=== PATIENT | male | born 1955 | race African-American/Black ===

== ENCOUNTER 2017-07-26 15:27 | Inpatient (IN) | payer OTHER ==
[2017-07-26] MEDS ORDERED: Lorazepam 2 MG/ML VIAL ONE (15:43)
--- NOTE | 2017-07-26 16:08 | CT ---
CT OF HEAD NONCONTRAST 07/26/17 COMPARISON: 03/14/16 brain MRI. INDICATION: Altered mental status, stroke protocol. History of left sided weakness. FINDINGS: There is diffuse multifocal encephalomalacia with associated volume loss which involves the left MCA distribution, bilateral TREAD BOOKER distributions as well as posterior right MCA distribution. There is a chr onic appearing cavitary lacunar infarction left basal ganglia. Ex vacuo dilatation present within the left lateral ventricle. No hemorrhage, mass effect or midline shift. Decreased pneumatization left mastoid air cells. IMPRESSION: Diffuse multifocal bilateral cerebral hemisphere encephalomalacia with associated parenchymal volume loss. There is also a cavitary left basal ganglia lacunar infarct. No hemorrhage or mass effect. Findings called to ER physician, Trinidad Lucas, at the time of interpretation, 1540 hours, 07/26/17. Code CR POS: [facility]
[2017-07-26 16:24] LABS: #Eosinphils 0.1 thou/uL (0.0-0.7); #Lymphocytes 2.6 thou/uL (1.20-3.40); #Monocytes 0.5 thou/uL (0.11-0.59); #Neutrophils 5.9 thou/uL (1.40-6.50); %Basophils 0.5 % (0.0-1.0); %Eosinophils 0.8 % (0.0-10.0); %Lymphocytes 28.5 % (21.0-51.0); %Monocytes 5.5 % (0.0-10.0); %Neutrophils 64.7 % (42.0-75.0); Hemoglobin 15.8 g/dL (14.0-18.0); Mean Corpuscular HGB CONC 33.5 g/dL (32.0-36.0); Mean Corpuscular Hemoglobin 29.2 pg (27.0-31.0); Mean Corpuscular Volume 87.3 fl (80.0-94.0); Mean Platelet Volume 7.3 fL (7.4-10.4); Platelet Count 310 thou/uL (130-400); RBC Distribution Width 12.7 % (11.5-14.5); Red Blood Cell (RBC) Count 5.41 mill/uL (4.70-6.10); White Blood Cell (WBC) Count 9.2 thou/uL (4.8-10.8)
[2017-07-26 16:32] LABS: INR-International Normal Ratio 1.1; Prothrombin Time 14.5 SEC (12.0-14.7)
[2017-07-26 16:33] LABS: PTT 32.2 SEC (22.9-36.1)
[2017-07-26 16:42] LABS: Bilirubin Negative (Negative); Blood, Urine Trace (Negative); Clarity CLOUDY (Clear); Glucose, Urine (Dipstick) Negative (Negative); Leukocyte Negative (Negative); Nitrite Negative (Negative); Protein, Urine (Dipstick) Trace mg/dL (Neg-Trace); Specific Gravity, Urine 1.018 (1.002-1.036)
[2017-07-26 16:44] LABS: Bacteria/HPF None Seen HPF (None Seen); Pathc Cast-AUWi Flag 2.03 (0-2.49); WBC/HPF 0-3 HPF (0-3)
[2017-07-26 16:45] LABS: ALT (SGPT) 28 U/L (8-55); AST (SGOT) 24 U/L (5-34); Albumin 4.4 g/dL (3.4-4.8); Alkaline Phosphatase 129 U/L (40-150); Anion Gap 15 mmol/L (10-20); BUN (Urea Nitrogen) 16 mg/dL (8.4-25.7); Calc. Creatinine Clearance 0 mL/min (70-130); Calcium 9.8 mg/dL (7.8-10.44); Carbon Dioxide 23 mmol/L (23-31); Chloride 106 mmol/L (98-107); Estimated GFR-MDRD 58; Globulin 3.6 g/dL (2.4-3.5); Glucose 161 mg/dL (80-115); Potassium 3.8 mmol/L (3.5-5.1); Sodium 140 mmol/L (136-145)
[2017-07-26 16:48] LABS: CKMB 2.3 ng/mL (0-6.6)
[2017-07-26 16:51] LABS: Hyaline Casts/LPF 0-3 HYALINE CAST LPF (0-3 Hyaline); Renal Epithelial 0-3 HPF (0-3); Transitional Epithelial 0-3 HPF (0-3)
--- NOTE | 2017-07-26 17:11 | RAD ---
PORTABLE CHEST ONE VIEW 07/26/17 at 4:38 p.m. HISTORY: Altered mental status, chest pain. FINDINGS/IMPRESSION: The heart size is borderline. There is a mild infiltrate in the right lower lung. The aorta is tortuo us. No pneumothoraces or large effusions are seen. POS: [facility]
--- NOTE | 2017-07-26 18:56 | HP ---
DATE OF ADMISSION: 07/26/2017 CHIEF COMPLAINT: Found unconscious, found unresponsive at home at 6:00 a.m. HISTORY OF PRESENT ILLNESS: This is a 62-year-old -[place] male with a known history of a pr evious CVA in the past, but has been fully functional according to his cousin who lives with him in t he same house. The patient was found unresponsive at home when his cousin saw him in the room on the floor. This happened at 6:00 a.m. and the patient was brought to the ER more than 3 hours after the initial event. When patient in the ER, he was completely unresponsive. Usually, he is alert and or iented x2, but is completely disoriented and is unable to give any history and not able to communicat e at all. The patient had a complete weakness of his left upper and lower extremities and had a comp lete aphasia. Dr. Medina from Neurosurgery was consulted by the ER physician who did go through the CAT scan and said there was no evidence of any acute stroke or any need for giving a tPA at this time . Unable to get any history at this time and no family member is available at the bedside. Most of the history was obtained from the nurse in the room and also from the previous records. PAST MEDICAL HISTORY: Significant for; 1. CVA. 2. Hypertension. PAST SURGICAL HISTORY: None. SOCIAL HISTORY: The patient lives at home with his cousin. He denies any alcohol. No history of al cohol, no history of illicit drug use. FAMILY HISTORY: Has been reviewed from the previous chart. No known family history of coronary toño ry disease or premature was noted. REVIEW OF SYSTEMS: Cannot be obtained as the patient is completely nonverbal and no family member is available at the bedside. ALLERGIES: No known drug allergies. HOME MEDICATIONS: 1. Amlodipine 10 mg p.o. daily. 2. Aspirin 1 capsule p.o. b.i.d. 3. Atorvastatin 20 mg p.o. daily. 4. Lisinopril 10 mg p.o. daily. PHYSICAL EXAMINATION: VITAL SIGNS: Blood pressure is 110/88, respiratory rate is 18 and saturation is 98%. GENERAL: The patient is moderately built and moderately nourished. He does not appear to be in acut e distress at this time, but is completely nonverbal. HEENT: Atraumatic and normocephalic. PERRLA. Extraocular movements intact. Oral mucosa is pink an d moist. NECK: No thyromegaly, no JVD was noted. CARDIOVASCULAR: S1 and S2 normal. No murmurs, rubs or gallops. LUNGS: Bilateral air entry was equal. No wheezing, no crackles. ABDOMEN: Soft and nontender. No guarding, no rebound tenderness. Bowel sounds normal. MUSCULOSKELETAL: No calf tenderness. No pedal edema. EXTREMITIES: No joint tenderness. MUSCULOSKELETAL: No joint swelling. SKIN: No cyanosis, no erythema, no rash, no pallor. CENTRAL NERVOUS SYSTEM: Could not be done, but has a severe sensory loss on the left upper and lower extremities associated with motor. No evidence of any Babinski reflex was noted on the left lower e xtremity, on the right side is upgoing and brisk reflexes. The patient is not able to follow any oth er commands to do further exam. LYMPHATICS: No evidence of any generalized lymph nodes were noted. LABORATORY DATA: WBC 9.2, hemoglobin is 15.8, hematocrit is 47.3 and platelets are 310. Sodium is 1 40, potassium 3.8, chloride 106, bicarbonate is 23, BUN 16, creatinine is 1.49 and lactic acid is 3.2 . UA was negative for any urinary tract infection. IMAGING DATA: CT of the brain was done today, which showed a diffuse multifocal bilateral cerebral h emisphere encephalomalacia with associated parenchymal loss was noted and there is also a cavitary le ft basal ganglia lacunar infarct was noted, left basal ganglia and lacunar infarct was noted. No hem orrhage or mass effect. ASSESSMENT AND PLAN: 1. Acute left cerebrovascular accident. 2. Acute kidney injury. 3. Severe dehydration. 4. History of hypertension. 5. History of cerebrovascular accident. 1. The plan is to closely monitor this patient and consult Neurology. We will do an MRI of the brai n to look for any evidence of an acute infarction. CT did not show any acute infarction, but it did show evidence of previous strokes and also severe encephalomalacia. We will start the patient on asp irin rectally and we will keep him n.p.o. and we will do a swallow evaluation. 2. The patient has evidence of severe dehydration with elevated lactic acid and elevated creatinine. At this time, we will start the patient on IV hydration with normal saline at 100 mL hour. 3. Mild acute kidney injury was noted with elevated creatinine. The baseline is not known at this t max, so we will continue with IV hydration and avoid nephrotoxic medication. 4. Hypertension is well controlled. We will closely monitor the patient and allow permissive hypert ension because of the stroke. 5. We will do a PT and OT evaluation and [facility] I spent [facility] minutes with this patient.
[2017-07-26] MEDS ORDERED: Ondansetron HCl/PF 4 MG/2 ML Vial IVP PRN (19:16)
[2017-07-26] MEDS: Dextrose 5 % And 0.9 % NaCl 1,000 ML IV SCH (20:13)
[2017-07-26] MEDS: Atorvastatin Calcium 40 MG TAB PO SCH (20:14)
[2017-07-26] MEDS: Famotidine/PF 20 mg/2ml Vial SLOW IVP SCH (20:14)
[2017-07-26 20:53] LABS: Lactic Acid 3.1 mmol/L (0.5-2.2)
[2017-07-27] MEDS: Dextrose 5 % And 0.9 % NaCl 1,000 ML IV SCH (03:38)
[2017-07-27 04:38] LABS: Amphetamine Not Detected (NotDetected); Barbiturates Screen Not Detected (NotDetected); Benzodiazepine Screen Not Detected (NotDetected); Cocaine Metabolite Screen Not Detected (NotDetected); Medtox Control Line Valid? VALID (VALID); Medtox Reader # READER 1; Methadone Not Detected (NotDetected); Methamphetamine Not Detected (NotDetected); Opiate Screen Not Detected (NotDetected); Oxycodone Screen Not Detected (NotDetected); Phencyclidine (PCP) Not Detected (NotDetected); THC/Cannabinoid Screen Not Detected (NotDetected); Tricyclic Screen Not Detected (NotDetected)
[2017-07-27 04:58] LABS: #Lymphocytes 2.8 thou/uL (1.20-3.40); #Monocytes 1.1 thou/uL (0.11-0.59); #Neutrophils 6.7 thou/uL (1.40-6.50); %Basophils 0.4 % (0.0-1.0); %Eosinophils 0.4 % (0.0-10.0); %Lymphocytes 25.9 % (21.0-51.0); %Monocytes 10.2 % (0.0-10.0); %Neutrophils 63.2 % (42.0-75.0); Hemoglobin 14.4 g/dL (14.0-18.0); Mean Corpuscular HGB CONC 33.1 g/dL (32.0-36.0); Mean Corpuscular Hemoglobin 28.7 pg (27.0-31.0); Mean Corpuscular Volume 86.8 fl (80.0-94.0); Platelet Count 321 thou/uL (130-400); RBC Distribution Width 12.4 % (11.5-14.5); Red Blood Cell (RBC) Count 5.02 mill/uL (4.70-6.10); White Blood Cell (WBC) Count 10.6 thou/uL (4.8-10.8)
[2017-07-27 05:08] LABS: Anion Gap 12 mmol/L (10-20); BUN (Urea Nitrogen) 11 mg/dL (8.4-25.7); Calc. Creatinine Clearance 63 mL/min (70-130); Calcium 9.4 mg/dL (7.8-10.44); Carbon Dioxide 23 mmol/L (23-31); Cardiac Risk 4.1 (Less than 4.5); Chloride 108 mmol/L (98-107); Cholesterol 152 mg/dl (< 200 Desired); Estimated GFR-MDRD 74; Glucose 164 mg/dL (80-115); HDL Cholesterol 37 mg/dL (>60 Neg Risk); LDL Cholesterol, Calculated 105 mg/dL; Potassium 3.6 mmol/L (3.5-5.1); Sodium 139 mmol/L (136-145); Triglycerides 52 mg/dL (Less than 150)
[2017-07-27] MEDS: Aspirin 81 mg Enteric Coated Tablet PO SCH (09:22)
[2017-07-27] MEDS: Enoxaparin Sodium 40 MG/0.4 ML SYRINGE SC SCH (09:22)
--- NOTE | 2017-07-27 10:30 | CON ---
DATE OF CONSULTATION: 07/27/2017 IMPRESSION: 1. Probable new stroke. 2. Previous history of stroke with visual field deficit on the right and some cognitive impairment. 3. Hyperlipidemia. 4. Hypertension. PLAN: 1. MRI of the brain. 2. Add Plavix 75 mg per day. 3. Probable need for fci placement. 4. Swallow evaluation. HISTORY OF PRESENT ILLNESS: Mr. Hudson is a 62-year-old man who is living at home with his . e reports that he generally can get around the house independently, did not see very well to the [facility] side and occasionally would bump into things. He has been at this time watching TV and could feed himself. He reportedly denied any significant memory difficulties. He became less responsive and wa s brought into the emergency room yesterday. There is no history of seizures. He has not had any ab normal movements. He has not had any fever or other signs of illness prior to admission. PAST MEDICAL HISTORY: Stroke, hypertension, hyperlipidemia. PAST SURGICAL HISTORY: Unremarkable. SOCIAL HISTORY: No alcohol or drug use. FAMILY HISTORY: Noncontributory. REVIEW OF SYSTEMS: Not obtainable. ALLERGIES: None. MEDICATIONS: Amlodipine, aspirin, atorvastatin, and lisinopril. PHYSICAL EXAMINATION: GENERAL: A thin 62-year-old gentleman sitting in bed with his eyes closed. VITAL SIGNS: Blood pressure 110/88, pulse 76, respirations 18, saturations 98%. HEENT: Pupils are equal and conjunctivae were clear. Cranium normocephalic and atraumatic. NECK: No lymphadenopathy noted. EXTREMITIES: No cyanosis or edema. NEUROLOGIC: He was nonverbal. He would not follow any commands. He appeared to have a symmetric fa cial appearance. Motor exam was difficult to test, but overall the tone was maybe a bit depressed on the left as compared to the right. Gait was not testable. No abnormal movements were seen. Planta r responses were equivocal bilaterally. LABORATORY STUDIES: Reviewed and appear unremarkable. CT scan of the brain shows areas of encephalomalacia involving both occipital and temporal regions bi laterally, some lacunar infarctions in the basal ganglia region as well. SUMMARY: This is a middle-aged man with a history of prior strokes and hypertension. He appears to have had an acute neurologic change as of have a new stroke. His is willing to consider PEG tub e placement if needed. He may require fci placement. Depending on his level of care, not m uch else that can be done at this point. His prior workup in 2016 did not reveal cardioembolic sourc e or evidence of carotid disease.
--- NOTE | 2017-07-27 13:05 | ULT ---
BILATERAL CAROTID DUPLEX ULTRASOUND: DATE: 07/27/17 HISTORY: Left-sided weakness. TECHNIQUE: Duff scale ultrasound with color flow and spectral Doppler imaging of the extracranial carotid artery systems performed bilaterally. FINDINGS: There is plaque formation on either side. The peak systolic velocity in the right ICA measures 34 cm/second with an end-diastolic velocity of 1 3 cm/second and a systolic ratio of 0.51. The peak systolic velocity in the left ICA measures 46 cm/second with an end-diastolic velocity of 19 cm/second and a systolic ratio of 0.43. Flow in both vertebral arteries remains antegrade. IMPRESSION: No evidence of hemodynamically significant stenosis. POS: [facility]
--- NOTE | 2017-07-27 14:05 | PDOC.PN ---
- Subjective Encounter Start Date: 07/27/17 Encounter Start Time: 13:00 Darling is dax today with his Cousin at bedside, pt remains Non Verbal from the stroke. Waiitng on MRI scan. pt has clearly noted Left sided deficitis persistant and lasting > 24 hrs, pt does have a stroke, he will need more than 2 midnights stay. - Objective Resuscitation Status: Resuscitation Status FULL:Full Resuscitation MAR Reviewed: Yes Vital Signs & Weight: Vital Signs (12 hours) Temp Pulse Resp BP BP Pulse Ox 07/27/17 11:08 98.3 F 80 18 137/101 H 94 L 07/27/17 08:00 97.9 F 110 H 16 07/27/17 07:05 97.6 F 97 18 173/107 H 97 07/27/17 03:35 97.9 F 110 H 16 169/105 H 97 I&O: 07/26/17 07/27/17 07/28/17 06:59 06:59 06:59 Intake Total 3812 Balance 3812 Result Diagrams: 07/27/17 04:38 07/27/17 04:38 Radiology Reviewed by me: Yes EKG Reviewed by me: Yes Phys Exam - Physical Examination HEENT: moist MMs, sclera anicteric Neck: no nodes, no JVD Respiratory: no wheezing, no rales Cardiovascular: RRR, no significant murmur Gastrointestinal: soft, non-tender Musculoskeletal: no edema, pulses present PT has Persistant Left upper &Lower Extremity weakness and sensory loss Aphasia, Dx/Plan (1) CVA (cerebral vascular accident) Code(s): I63.9 - CEREBRAL INFARCTION, UNSPECIFIED Status: Acute Comment: Pt has persuistant Deficits , with left upper and lower extremity, motor and sensory deficits, Pt has severe Aphasia and Not following commands, pending Echo , preliminary report shows severe Aortic Stenosis. MRI pending. (2) HTN (hypertension) Code(s): I10 - ESSENTIAL (PRIMARY) HYPERTENSION Status: Chronic Comment: Darling will be continued on PRN meds. (3) Dysphagia as late effect of cerebrovascular accident (CVA) Code(s): I69.391 - DYSPHAGIA FOLLOWING CEREBRAL INFARCTION Status: Acute Comment: Diuscussed with Causin who is MPOA, pt will need Tube feeding and possible PEg before dischagre if his Deficits do not return. - Plan cont current plan of care, plan discussed w/ family, PT/OT, social media job titles, speech therapy, respiratory therapy, incentive spirometry, DVT proph w/lovenox * . - Discharge Day Encounter end time: 13:35 Review of Systems - Review of Systems Other: Unable to get ROS due to pts mental status from severe stroke. - Medications/Allergies Allergies/Adverse Reactions: Allergies Allergy/AdvReac Type Severity Reaction Status Date / Time No Known Drug Allergies Allergy Verified 03/13/16 20:16 Medications: Current Medications Aspirin (Ecotrin) 81 mg PO DAILY [facility] Last Admin: 07/27/17 09:22 Dose: 81 mg Atorvastatin Calcium (Lipitor) 40 mg PO HS [facility] Last Admin: 07/26/17 20:14 Dose: Not Given Enoxaparin Sodium (Lovenox) 40 mg SC 0900 [facility] Last Admin: 07/27/17 09:22 Dose: 40 mg Famotidine (Pepcid) 20 mg SLOW IVP 2100 [facility] Last Admin: 07/26/17 20:14 Dose: 20 mg Influenza Virus Vaccine (Fluzone Quad [id number] Syringe) 0.5 ml IM .ONCE ONE Stop: 07/28/17 09:01 Ondansetron HCl (Zofran) 4 mg IVP Q6H PRN PRN Reason: Nausea/Vomiting Pneumococcal Polyvalent Vaccine (Pneumovax 23) 0.5 ml IM .ONCE ONE Stop: 07/28/17 09:01
[2017-07-27] MEDS ORDERED: Sodium Bicarbonate Tab 325 MG TAB PER TUBE PRN (17:54)
[2017-07-27] MEDS ORDERED: Pancrelipase DR 12000 1 CAP FS PRN (17:54)
[2017-07-27] MEDS: Atorvastatin Calcium 40 MG TAB PO SCH (21:06)
[2017-07-27] MEDS: Famotidine/PF 20 mg/2ml Vial SLOW IVP SCH (21:09)
[2017-07-28] MEDS ORDERED: FLU VACC QS2017-18 36 mo. & older 0.5 ML SYRINGE IM ONE (09:00)
[2017-07-28] MEDS: Aspirin 81 mg Enteric Coated Tablet PO SCH (10:01)
[2017-07-28] MEDS: Enoxaparin Sodium 40 MG/0.4 ML SYRINGE SC SCH (10:01)
--- NOTE | 2017-07-28 12:28 | PDOC.PN ---
- Subjective Encounter Start Date: 07/28/17 Encounter Start Time: 11:00 Patient is seen today, remains Non verbal, His Cousin / MPOA is at bedside, discucsed about SNF/ Rehab, and waiting on MRI today also explained pt will need PEG tube for care home deficits and dyssphagia, will need tube feeding started. She is open for it. - Objective MAR Reviewed: Yes Vital Signs & Weight: Vital Signs (12 hours) Temp Pulse Pulse Pulse Pulse Resp BP 07/28/17 11:08 100 F H 90 20 07/28/17 09:00 87 113 H 89 146/103 H 07/28/17 08:00 97.9 F 88 16 07/28/17 07:58 97.9 F 88 16 07/28/17 04:00 99.3 F 93 16 BP BP BP Pulse Ox 07/28/17 11:08 143/94 H 93 L 07/28/17 09:00 146/107 H 149/99 H 07/28/17 08:00 97 07/28/17 07:58 135/93 H 97 07/28/17 04:00 164/100 H 93 L Weight Admit Weight 152 lb 8 oz Weight 152 lb 8 oz I&O: 07/27/17 07/28/17 07/29/17 06:59 06:59 06:59 Intake Total 20 Balance 20 Result Diagrams: 07/27/17 04:38 07/27/17 04:38 Radiology Reviewed by me: Yes Phys Exam - Physical Examination HEENT: PERRLA, moist MMs Neck: no nodes, no JVD Respiratory: no wheezing, no rales Cardiovascular: RRR, no significant murmur Gastrointestinal: soft Musculoskeletal: no edema, pulses present Non verbal, simialr Dificits from two days. Skin: no rash, normal turgor Dx/Plan (1) CVA (cerebral vascular accident) Code(s): I63.9 - CEREBRAL INFARCTION, UNSPECIFIED Status: Acute Comment: Pt has persuistant Deficits , with left upper and lower extremity, motor and sensory deficits, Pt has severe Aphasia and Not following commands, pending Echo , preliminary report shows severe Aortic Stenosis. MRI pending, likely today. (2) HTN (hypertension) Code(s): I10 - ESSENTIAL (PRIMARY) HYPERTENSION Status: Chronic Comment: Paitent will be continued on PRN meds. (3) Dysphagia as late effect of cerebrovascular accident (CVA) Code(s): I69.391 - DYSPHAGIA FOLLOWING CEREBRAL INFARCTION Status: Acute Comment: Diuscussed with Causin who is MPOA, pt will need Tube feeding and possible PEg before dischagre if his Deficits do not return. Consulted GI for PEG planning. - Plan cont current plan of care, plan discussed w/ family, PT/OT, community mental health social worker, speech therapy, incentive spirometry, DVT proph w/lovenox * . - Discharge Day Encounter end time: 11:35 Review of Systems - Review of Systems Other: Unable to get ROS, pt is Non verbal. - Medications/Allergies Allergies/Adverse Reactions: Allergies Allergy/AdvReac Type Severity Reaction Status Date / Time No Known Drug Allergies Allergy Verified 03/13/16 20:16 Medications: Current Medications Lipase/Protease/Amylase ([place] 64637) 1 cap FS .PER PROTOCOL PRN PRN Reason: TUBE OCCLUSION PROTOCOL Aspirin (Ecotrin) 81 mg PO DAILY [facility] Last Admin: 07/28/17 10:01 Dose: Not Given Atorvastatin Calcium (Lipitor) 40 mg PO HS [facility] Last Admin: 07/27/17 21:06 Dose: Not Given Enoxaparin Sodium (Lovenox) 40 mg SC 0900 [facility] Last Admin: 07/28/17 10:01 Dose: 40 mg Famotidine (Pepcid) 20 mg SLOW IVP 2100 [facility] Last Admin: 07/27/17 21:09 Dose: 20 mg Ondansetron HCl (Zofran) 4 mg IVP Q6H PRN PRN Reason: Nausea/Vomiting Sodium Bicarbonate (Bicarbonate, Sodium) 650 mg PER TUBE .PER PROTOCOL PRN PRN Reason: ENTERAL TUBE OCCLUSION
--- NOTE | 2017-07-28 15:20 | MRI ---
MRI BRAIN WITHOUT CONTRAST: Date: 07/28/17 HISTORY: Stroke. Patient unable to speak. FINDINGS: Correlation is made with CT scan of 07/26/17. There is restricted diffusion in the right MCA territory with low signal on ADC map consistent with a n acute infarction. Changes of cortical atrophy, old lacunar infarction in the left basal ganglia, an d old infarctions in the left MCA and bilateral AGRICULTURAL PILOT distribution are noted. There is ex vacuo dilatat ion of the left lateral ventricle. No hemorrhage, midline shift, or abnormal extra-axial fluid collec tions are seen. IMPRESSION: Acute right MCA infarction. POS: [facility]
[2017-07-28] MEDS: Dextrose 5 % And 0.9 % NaCl 1,000 ML IV SCH (18:39)
[2017-07-28] MEDS: Famotidine/PF 20 mg/2ml Vial SLOW IVP SCH (20:16)
[2017-07-28] MEDS: Atorvastatin Calcium 40 MG TAB PO SCH (20:16)
--- NOTE | 2017-07-28 21:58 | CON ---
DATE OF CONSULTATION: 07/28/2017 REASON FOR CONSULTATION: Dysphagia. CONSULTING PHYSICIAN: Gustavo Montague MD HISTORY OF PRESENT ILLNESS: The patient is a 62-year-old male with past medical history of hypertens ion and prior cardiovascular accident, presenting with altered mental status and dysphagia. The antione ent is currently unable to answer any interview questions and no family was available for interview, so the majority of the information obtained was during this consultation is through chart review. Pe r chart review, the patient does have a history of cardiovascular accident and had what appeared to b e some right-sided deficits and memory loss while at home it is baseline; however, it sounds as thoug h over the last 24-48 hours, he became less responsive and was brought to the emergency room for eval uation. Upon evaluation in the ER, there was some concern about a new acute stroke, but his chart wa s reviewed by Dr. Yusuf from Neurosurgery, who felt that there was no acute stroke or need for TPA. He was subsequently admitted and during this hospitalization, he underwent a speech pathology swallow study which he was unable to complete with increased risk of aspiration. REVIEW OF SYSTEMS: Unable to obtain due to patient's aphasic status. PAST MEDICAL HISTORY: As per HPI. PAST SURGICAL HISTORY: None. SOCIAL HISTORY: No tobacco, alcohol, or illicit drug use. FAMILY HISTORY: No known family history of GI malignancy. OUTPATIENT MEDICATIONS: Reviewed. ALLERGIES: No known drug allergies. PHYSICAL EXAMINATION: VITAL SIGNS: Temperature 97, pulse 89, blood pressure 162/104, respiratory rate 16, satting 94% on r oom air. GENERAL: The patient is lying in bed, in no acute distress, unable to determine orientation, but is alert to verbal and noxious stimuli. NECK: Supple. No JVD noted. CARDIOVASCULAR: Regular rate and rhythm with no discernible murmurs, gallops or rubs. RESPIRATORY: Clear to auscultation bilaterally with no discernible wheezes or rales. ABDOMEN: Normoactive bowel sounds, soft, nontender, nondistended. EXTREMITIES: No cyanosis, clubbing or edema. LABORATORY DATA: CBC with a white blood cell count of 10.6, hemoglobin 14.4, hematocrit 43.6, platel ets 321. Chemistry with a sodium of 139, potassium 3.6, chloride 108, CO2 23, BUN 11, creatinine 1.2 1, glucose 164, AST 24, ALT 28, alkaline phosphatase 129, total bilirubin 1.0. IMAGING DATA: CT of brain obtained on 07/26/2017 showed diffuse multifocal bilateral cerebral hemisp here encephalomalacia associated with parenchymal volume loss. There was also a cavitary left basal ganglia lacunar infarct, but no hemorrhage or mass effect. Chest x-ray obtained on 07/26/2017, do no t show any acute cardiopulmonary abnormalities except for a mild infiltrate in the right lower lung. ASSESSMENT AND PLAN: The patient is a 62-year-old male with a past medical history of hypertension a nd cardiovascular accident, presenting with altered mental status and dysphagia. Dysphagia. The patient is presenting with a history of cardiovascular accident with right-sided defi cits, now coming in with acute change in his mental status, now being aphasic and left-sided weakness as well, concerning for repeat cardiovascular accident. CT brain did not show any acute abnormaliti es with the brain MRI pending at this time. At this point, Speech Pathology examination showed that the patient is unsafe for oral intake due to significant dysphagia and pooling of foodstuffs within t he mouth concerning for possible aspiration. RECOMMENDATIONS: 1. We will plan for EGD with PEG tube placement tomorrow. 2. We would refrain from any anticoagulation tonight or tomorrow morning in anticipation of the proc edure. 3. Please make the patient n.p.o. at midnight.
[2017-07-29] MEDS: Dextrose 5 % And 0.9 % NaCl 1,000 ML IV SCH ×2 (04:09→14:13)
[2017-07-29] MEDS: Aspirin 81 mg Enteric Coated Tablet PO SCH (10:06)
[2017-07-29] MEDS: Enoxaparin Sodium 40 MG/0.4 ML SYRINGE SC SCH (10:06)
--- NOTE | 2017-07-29 12:48 | PDOC.PN ---
- Subjective Encounter Start Date: 07/29/17 Encounter Start Time: 08:00 Patient is seen today,drowsy and lethergic non verbal. No family memeber at bedside. - Objective MAR Reviewed: Yes Vital Signs & Weight: Vital Signs (12 hours) Temp Pulse Pulse Pulse Resp BP BP 07/29/17 11:16 99.1 F 72 16 07/29/17 09:13 73 72 143/98 H 144/95 H 07/29/17 08:28 98.8 F 76 16 07/29/17 07:40 99.2 F 78 16 07/29/17 03:29 99.2 F 78 16 BP Pulse Ox 07/29/17 11:16 146/111 H 98 07/29/17 09:13 07/29/17 08:28 133/93 H 94 L 07/29/17 07:40 94 L 07/29/17 03:29 162/104 H 92 L Weight Admit Weight 152 lb 8 oz Weight 144 lb 11.2 oz I&O: 07/28/17 07/29/17 07/30/17 06:59 06:59 06:59 Intake Total 20 1265 Balance 20 1265 Result Diagrams: 07/27/17 04:38 07/27/17 04:38 Radiology Reviewed by me: Yes (MRI reviewed.) Phys Exam - Physical Examination HEENT: PERRLA, moist MMs Neck: no nodes, no JVD Respiratory: no wheezing, no rales Cardiovascular: RRR, no significant murmur Gastrointestinal: soft, non-tender Musculoskeletal: no edema, pulses present persistant left Sided Deficitis Dx/Plan (1) CVA (cerebral vascular accident) Code(s): I63.9 - CEREBRAL INFARCTION, UNSPECIFIED Status: Acute Comment: Pt has persuistant Deficits , with left upper and lower extremity, motor and sensory deficits, Pt has severe Aphasia and Not following commands, pending Echo , preliminary report shows severe Aortic Stenosis. MRI confirmed Right MCA (2) HTN (hypertension) Code(s): I10 - ESSENTIAL (PRIMARY) HYPERTENSION Status: Chronic Comment: Paitent will be continued on PRN meds. (3) Dysphagia as late effect of cerebrovascular accident (CVA) Code(s): I69.391 - DYSPHAGIA FOLLOWING CEREBRAL INFARCTION Status: Acute Comment: Diuscussed with Causin who is MPOA, pt will need Tube feeding and possible PEg before dischagre if his Deficits do not return. PEG tube tomorrow, will hold and Asporin and lovenox. - Plan cont current plan of care, plan discussed w/ family, talavera catheter, PT/OT, social insurance adviser, speech therapy, incentive spirometry, DVT proph w/SCDs * . - Discharge Day Encounter end time: 08:35 Review of Systems - Review of Systems Other: Unable to get ROS due to neurologic deficits and pts non verbal state. - Medications/Allergies Allergies/Adverse Reactions: Allergies Allergy/AdvReac Type Severity Reaction Status Date / Time No Known Drug Allergies Allergy Verified 03/13/16 20:16 Medications: Current Medications Lipase/Protease/Amylase ([place]illard 63072) 1 cap FS .PER PROTOCOL PRN PRN Reason: TUBE OCCLUSION PROTOCOL Atorvastatin Calcium (Lipitor) 40 mg PO HS [facility] Last Admin: 07/28/17 20:16 Dose: Not Given Famotidine (Pepcid) 20 mg SLOW IVP 2100 [facility] Last Admin: 07/28/17 20:16 Dose: 20 mg Dextrose/Sodium Chloride (D5 0.9% Ns) 1,000 mls @ 100 mls/hr IV .Q10H [facility] Last Admin: 07/29/17 04:09 Dose: 1,000 mls Ondansetron HCl (Zofran) 4 mg IVP Q6H PRN PRN Reason: Nausea/Vomiting Sodium Bicarbonate (Bicarbonate, Sodium) 650 mg PER TUBE .PER PROTOCOL PRN PRN Reason: ENTERAL TUBE OCCLUSION Sodium Chloride (Flush - Normal Saline) 10 ml IVF Q12HR [facility] Last Admin: 07/29/17 10:06 Dose: Not Given Sodium Chloride (Flush - Normal Saline) 10 ml IVF PRN PRN PRN Reason: Saline Flush
--- NOTE | 2017-07-29 19:27 | PRG ---
DATE OF SERVICE: 07/29/2017 REASON FOR CONSULTATION: Dysphagia. SUBJECTIVE: No acute events or problems overnight. The patient is still aphasic and unable to contr ibute any meaningful information to interviewing. Per nursing staff, the patient has been fairly apa thetic with his current care. OBJECTIVE: VITAL SIGNS: Temperature 98.0, pulse 74, blood pressure 135/92, respiratory rate 16, satting 94% on room air. GENERAL: The patient is lying in bed, in no acute distress, alert but cannot contribute to orientati on questions. CARDIOVASCULAR: Regular rate and rhythm, no discernible murmurs, gallops or rubs. RESPIRATORY: Clear to auscultation bilaterally with no wheezes or rales. ABDOMEN: Normoactive bowel sounds, soft, nontender, nondistended. EXTREMITIES: No cyanosis, clubbing or edema. LABORATORY DATA: No current laboratory data is available for review. IMAGING DATA: No current imaging is available for review. ASSESSMENT AND PLAN: The patient is a 62-year-old male with past medical history of hypertension and cardiovascular accident, presenting with altered mental status and dysphagia. Dysphagia: The patient has a history of cerebrovascular accident with right-sided deficit, who prese nted during this hospitalization with an acute change in his mental status and concern for recurrent stroke. CT brain did not show any abnormalities, but the brain MRI showed an acute right MCA infarct ion, which could result in the deficits were seen clinically at this time. Speech pathology examinat ion at the beginning of this hospitalization showed that the patient is unsafe for oral intake due to significant dysphagia and pooling of foodstuffs within the mouth concerning for increased risk of as piration. At this point, he would be a candidate for PEG tube placement. RECOMMENDATIONS: 1. We will plan for EGD with PEG tube placement tomorrow on 07/30/2017. The procedure was originall y planned for today, but we were unable to get a hold of family members for consent. 2. We would refrain from any anticoagulation tonight or tomorrow morning in anticipation for the pro cedure. 3. Continue n.p.o. status. We will continue to follow. Please call with any questions.
[2017-07-29] MEDS: Famotidine/PF 20 mg/2ml Vial SLOW IVP SCH ×2 (19:52→19:53)
[2017-07-29] MEDS: Atorvastatin Calcium 40 MG TAB PO SCH (19:53)
[2017-07-30] MEDS: Dextrose 5 % And 0.9 % NaCl 1,000 ML IV SCH ×4 (00:25→15:20)
--- NOTE | 2017-07-30 07:22 | PDOC.PN ---
- Subjective Encounter Start Date: 07/30/17 Encounter Start Time: 07:21 Subjective: nsg notes rev, antoine ovn, pts cousin at bedside. pt somnolent - Objective Vital Signs & Weight: Vital Signs (12 hours) Temp Pulse Resp BP Pulse Ox 07/30/17 03:39 98.6 F 68 18 141/89 H 96 07/30/17 00:05 98.5 F 78 18 136/84 95 07/29/17 20:30 98.6 F 71 18 134/97 H 95 Weight Admit Weight 152 lb 8 oz Weight 146 lb 3.2 oz I&O: 07/29/17 07/30/17 07/31/17 06:59 06:59 06:59 Intake Total 1265 3575 Output Total 1 Balance 1265 3574 Result Diagrams: 07/27/17 04:38 07/27/17 04:38 Phys Exam - Physical Examination Constitutional: NAD HEENT: PERRLA, sclera anicteric slightly dry mm Respiratory: no wheezing, no rales, no rhonchi, clear to auscultation bilateral limited ant exam Cardiovascular: RRR, no significant murmur, no rub Gastrointestinal: soft, non-tender, positive bowel sounds Musculoskeletal: no edema, pulses present Dx/Plan - Plan 62M hx prior CVA who p/w decreased mentation greater than 3hrs in duration. He was brought in by his cousin whom he lives with. * R sided MCA infarct w/ L sided deficits * apprec neuro c/s * PT/ OT/ ST * continue atorvastatin * ASA held for EGD + PEG today dysphagia from R sided MCA * apprec GI c/s * plan for EGD w/ PEG today HTN * imprv ctrl SBP 130s ovn ARF on admission * likely pre-renal etiology from concurrent dehydration on admission * resolved Diet: TF initiation as per GI activity: as evangelina dvt ppx: enoxaparin held at midnight for procedure Review of Systems - Medications/Allergies Allergies/Adverse Reactions: Allergies Allergy/AdvReac Type Severity Reaction Status Date / Time No Known Drug Allergies Allergy Verified 03/13/16 20:16 Medications: Current Medications Lipase/Protease/Amylase (Corky Dillard 68590) 1 cap FS .PER PROTOCOL PRN PRN Reason: TUBE OCCLUSION PROTOCOL Atorvastatin Calcium (Lipitor) 40 mg PO HS EVAN Last Admin: 07/29/17 19:53 Dose: Not Given Famotidine (Pepcid) 20 mg SLOW IVP 2100 EVAN Last Admin: 07/29/17 19:53 Dose: 20 mg Dextrose/Sodium Chloride (D5 0.9% Ns) 1,000 mls @ 100 mls/hr IV .Q10H EVAN Last Admin: 07/30/17 00:25 Dose: 1,000 mls Ondansetron HCl (Zofran) 4 mg IVP Q6H PRN PRN Reason: Nausea/Vomiting Sodium Bicarbonate (Bicarbonate, Sodium) 650 mg PER TUBE .PER PROTOCOL PRN PRN Reason: ENTERAL TUBE OCCLUSION Sodium Chloride (Flush - Normal Saline) 10 ml IVF Q12HR EVAN Last Admin: 07/29/17 19:53 Dose: 10 ml Sodium Chloride (Flush - Normal Saline) 10 ml IVF PRN PRN PRN Reason: Saline Flush
--- NOTE | 2017-07-30 09:41 | OP ---
DATE OF PROCEDURE: 07/30/2017 GI ENDOSCOPY NOTE SURGEON: Artis Washington M.D. EMS EDUCATOR SURGEON: None. PROCEDURE: Esophagogastroduodenoscopy with aborted percutaneous endoscopic gastrostomy placement. INDICATION: Oropharyngeal dysphagia following stroke. MEDICATIONS: See anesthesia record. FINDINGS: After discussion of the risks, benefits and alternatives of the procedure, informed consen t was obtained and witnessed. Pre-endoscopic cardiopulmonary examination was satisfactory. Timeout was performed before sedation was achieved. Sedation was achieved with anesthesia assistance in the endoscopy unit. DESCRIPTION OF PROCEDURE: The patient was placed in the supine position. A Pentax adult upper endos cope was placed into the oropharynx and passed through the cricopharyngeus under direct visualization . The esophageal mucosa appeared normal throughout. The endoscope was advanced into the stomach. F orward and retroflexed views of the entire gastric mucosa were obtained. There was some mild patchy erythema throughout the stomach. No erosions or ulcerations. No hiatal hernia visualized. The endo scope was passed through the pylorus and into the first and second portions of the duodenum which miesha eared normal. The endoscope was then withdrawn back into the stomach and we attempted to find a suit able site for PEG placement. Initially it was difficult to achieve transillumination with reposition ing of the endoscope transillumination and 1:1 pressure were achieved and it was felt that a suitable site had been located in the left upper quadrant. The site was prepped and draped in sterile fashio n and then anesthetized with subcutaneous lidocaine; however, at this point, we lost transilluminatio n and insertion of the small needle transcutaneously was performed, but the tip of the needle was not able to be visualized in the gastric lumen. Three attempts were made to introduce this needle trans cutaneously, but we were never able to visualize the tip. Accordingly, it was decided to abort the a ttempted PEG placement and not to proceed with the incision. The endoscope was completely withdrawn and the patient allowed to recover. The patient tolerated the procedure well. There were no immedia te post-procedure complications. IMPRESSION: 1. Normal esophagogastroduodenoscopy. 2. Aborted attempt at percutaneous endoscopic gastrostomy placement due to inability to find a suita ble site. RECOMMENDATIONS: Surgical consultation for PEG placement. Please call back at any time if questions or concerns.
--- NOTE | 2017-07-30 12:24 | PQF ---
DATE: 07-30-17 ATTN: DR. DAMIEN AL Please exercise your independent, professional judgment in responding to the clarification form. Clinical indicators are provided on the bottom of this form for your review Please check appropriate box(s): [ x ] Hemiplegia Specify: [ x ] Non dominant side [ ] Dominant side Status: [ ] Complete [ x ] Incomplete [ ] Functional Quadriplegia (specify underlying cause) [ ] Weakness (please specify anatomical area) Specify: [ ] Non dominant side [ ] Dominant side [ ] Other diagnosis [ ] Unable to determine In addition, please specify: Present on Admission (POA): [ ] Yes [ ] No [ ] Unable to determine CLINICAL INDICATORS - SIGNS / SYMPTOMS / LABS CMSW NOTE 07-30-17: INFORMED HER PT WILL NEED 24 HR SUPERVISION. PN 07-27-17: REMAINS NONVERBAL FROM STROKE, PT HAS CLEARLY NOTED L SIDED DEFICITS PERSISTENT AND LASTING >24 HRS, PT HAS PERSISTENT DEFICITS, WITH LEFT UPPER AND LOWER EXTREMITY, MOTOR AND SENSORY DEFICITS, PT HAS SEVERE APHASIA NURSING NOTE 07-30-17: PATIENT GIVEN BATH PT CONSULT: 07-29-17: DECREASED FUNCTIONAL MOBILITY, GAIT ABNORMALITY, HX OF CVA, APHASIA FROM PRIOR CVA, UNABLE TO WALK, UNABLE TO MEET DAILY PROGRESS, PT REMAINS COMPLETELY DEPENDENT ON assistance for all aspects of care. Pt would benefit from cont PT to decrease the chance of decub ulcers and muscular contractures and provide caregiver education for safer assistance once d/c. FUNCTIONAL ASSISTANCE LEVEL-MAX A RISK FACTORS: H&P: HX OF CVA TREATMENT: PT CONSULT: 07-29-17: DECREASED FUNCTIONAL MOBILITY, GAIT ABNORMALITY, HX OF CVA, APHASIA FROM PRIOR CVA, UNABLE TO WALK, UNABLE TO MEET DAILY PROGRESS, PT REMAINS COMPLETELY DEPENDENT ON assistance for all aspects of care. Pt would benefit from cont PT to decrease the chance of decub ulcers and muscular contractures and provide caregiver education for safer assistance once d/c. FUNCTIONAL ASSISTANCE LEVEL-MAX A (This form is maintained as a part of the permanent medical record) 2014 [employer]. All Rights Reserved ANDREY [email or web address] Office: [phone] [facility]
--- NOTE | 2017-07-30 15:07 | CON ---
DATE OF CONSULTATION: 07/30/2017 REQUESTING PHYSICIAN: Dr. Artis Washington. HISTORY OF PRESENT ILLNESS: A 62-year-old -[place]ammarinese man with previous history of left-sided c erebrovascular accident. The patient apparently was fairly functional at home. He was admitted on 0 07/26/2017 with acute onset of lethargy and left-sided weakness. He has subsequently been diagnosed w ith acute right middle cerebral arterial distribution of cerebrovascular accident. Patient underwent an attempted PEG tube placement today. This was unsuccessful due to inability to find a suitable si te to place the PEG. Patient was referred to General Surgery for possible surgical gastrostomy tube placement. At the time of my evaluation, patient remains sleepy, but easily awakens. He is a nonver bal. I obtained most of the history from chart review and from speaking with the patient's cousin, doreen beasley is his power of assistant prosecuting attorney. PAST MEDICAL HISTORY: Pertinent for previous left-sided cerebrovascular accident as well as the rece nt right cerebrovascular accident. Patient also has a history of essential hypertension. SURGICAL HISTORY: None except for attempted upper endoscopy today. SOCIAL HISTORY: Patient lives at home with his cousin, who is his primary caregiver as well as the p er of assistant prosecuting attorney. He has no history of ethanol, tobacco, or illicit drug abuse. FAMILY HISTORY: Noncontributory for this patient's age. REVIEW OF SYSTEMS: Could not be obtained as patient is currently aphasic. PHYSICAL EXAMINATION: GENERAL: A 62-year-old man with a recent right-sided cerebrovascular accident with left hemiparesis, who is aphasic and appears to be in no acute distress at the time of my evaluation. VITAL SIGNS: Includes blood pressure 141/89, pulse 68, respiratory rate is 18, temperature is 98.6 d egrees Fahrenheit, oxygen saturation 96% on room air. HEART: Reveals regular rate and rhythm, no murmurs or gallops auscultated. LUNGS: Clear to auscultation bilaterally. Breathing is regular and unlabored. ABDOMEN: Soft, nontender and nondistended. Liver and spleen are nonpalpable below costal margin. IMPRESSION: 1. Status post cerebrovascular accident. 2. Acute and possible chronic dysphagia secondary to #1. RECOMMENDATION: Repeat percutaneous endoscopic gastrostomy tube placement tomorrow under anesthesia. If this fails, we then proceed with open gastrostomy tube placement at that time. The above findings and plans discussed with the patient's power of assistant prosecuting attorney. I advised the risk and benefits of the proposed surgery. Risks include, but not limited to bleeding, infection, injury to b owel or surrounding structures. She indicates understanding of information I have provided that in the presence of the patient's nurs e. I have answered her questions. The patient's power of assistant prosecuting attorney has granted consent for this surgical intervention.
[2017-07-30] MEDS ORDERED: Lidocaine 1% PF 5 ML VIAL ONE (15:36)
[2017-07-30] MEDS ORDERED: Propofol 200 MG/20 ML VIAL ONE (15:36)
[2017-07-30] MEDS: Famotidine/PF 20 mg/2ml Vial SLOW IVP SCH (20:38)
[2017-07-30] MEDS: Atorvastatin Calcium 40 MG TAB PO SCH (20:40)
[2017-07-31] MEDS: Dextrose 5 % And 0.9 % NaCl 1,000 ML IV SCH ×3 (01:00→16:58)
[2017-07-31] MEDS ORDERED: Midazolam HCl 2 mg/2 ml Vial ONE (09:03)
[2017-07-31] MEDS ORDERED: Fentanyl 100 MCG/2 ML VIAL ONE (09:03)
[2017-07-31] MEDS ORDERED: Bupivacaine HCl 0.5%/Epinephrine 1:200,000/PF 30 ml Vial ONE (10:19)
[2017-07-31] MEDS ORDERED: Fentanyl 250 MCG/5 ML VIAL ONE (10:44)
[2017-07-31] MEDS ORDERED: Ketamine 50 MG/ML VIAL ONE (10:56)
--- NOTE | 2017-07-31 12:18 | OP ---
DATE OF OPERATION: 07/31/2017 PREOPERATIVE DIAGNOSIS: Status post acute cerebrovascular accident. POSTOPERATIVE DIAGNOSIS: Status post acute cerebrovascular accident. PROCEDURES PERFORMED: 1. Endoscopic gastroduodenoscopy. 2. Percutaneous endoscopic gastrostomy tube placement. SURGEON: Dr. Antonio Caldwell. ANESTHESIA: General endotracheal. ESTIMATED BLOOD LOSS: Negligible. COUNTS: Sponge and instrument count are certified as correct x2. INDICATIONS FOR PROCEDURE: This is a 62-year-old -[place] man with previous history of a lef t-sided stroke who suffered a right-sided acute cerebrovascular accident. The patient is unable to swallow. I was asked to place a percutaneous endoscopic gastrostomy tube placement to facilitate enteral nutri tional supplementation. The patient had an attempted percutaneous endoscopic gastrostomy tube placement yesterday with failed attempt to transilluminate the anterior abdominal wall. DESCRIPTION OF PROCEDURE: An informed consent was obtained from the patient's sister and power of valerie ramirez. The patient was brought to the operating room today and placed in the spine position. Following general anesthesia per Anesthesia Department, a fiberoptic endoscope was introduced oral on ce a bite block was put in place. This scope was passed under direct vision in the oropharynx, passed in through the cricopharyngeus mu scle under direct visualization. The esophagus was then intubated and with gentle insufflation, the scope was passed into the gastric lumen. Gastric mucosa was well visualized for the retroflexed views. The scope was visualized in the proximal duodenum finding no pathology. The scope was then withdrawn into the gastric lumen transilluminating the left upper quadrant in the area chosen for the placement of the PEG tube. The skin was anesthetized with 1% lidocaine. An introducer needle was advanced and visualized within the gastric lumen. This was then removed. A stab incision was made here using an 11 scalpel. An introducer needle was inserted through this and advanced into the gastric lumen under direct visua lization. A guidewire was passed through this and placed in the gastric lumen. This was then captured with an endosnare. The wire was pulled out with the endoscope per oral and connected to a 20-B[place] gastrostomy tube. The distal end of the wire was then pulled out through the stab incisional site leaving the mushroom end of the PEG tube visualized within the gastric lumen under direct endoscopy. The mushroom end of the PEG tube abuts the gastric wall. Good hemostasis noted in place. Finding no other pathology. The gastric lumen was desufflated. The endoscope was withdrawn, visualizing intact esophageal mucosa. The patient tolerated the operation without any apparent complication and remains hemodynamically sta ble following completion of the procedure. He was transferred to the recovery room in satisfactory condition.
[2017-07-31] MEDS ORDERED: Lidocaine 1% PF 5 ML VIAL ONE (16:15)
[2017-07-31] MEDS ORDERED: Propofol 200 MG/20 ML VIAL ONE (16:15)
[2017-07-31] MEDS ORDERED: PHENYLEPHRINE-NS 100 MCG/ML 10 ML SYRINGE ONE (16:15)
[2017-07-31] MEDS ORDERED: Glycopyrrolate 0.2 MG/ML 5 ML SYRINGE ONE (16:15)
[2017-07-31] MEDS: Atorvastatin Calcium 40 MG TAB PO SCH (20:21)
[2017-07-31] MEDS: Famotidine/PF 20 mg/2ml Vial SLOW IVP SCH (20:22)
--- NOTE | 2017-07-31 22:58 | PDOC.PN ---
- Subjective Encounter Start Date: 07/31/17 Encounter Start Time: 11:00 -: non-verbal Subjective: nsg notes rev, antoine ovn, no new c/o verbalized - Objective Vital Signs & Weight: Vital Signs (12 hours) Temp Pulse Pulse Resp BP BP Pulse Ox 07/31/17 20:00 99.9 F H 80 18 166/101 H 95 07/31/17 15:48 98.3 F 76 16 168/107 H 96 07/31/17 13:45 67 178/100 H 07/31/17 12:00 97.4 F L 61 14 167/100 H 95 Weight Admit Weight 152 lb 8 oz Weight 138 lb I&O: 07/30/17 07/31/17 08/01/17 06:59 06:59 06:59 Intake Total 3575 1259 Output Total 1 Balance 3574 1259 Result Diagrams: 07/27/17 04:38 07/27/17 04:38 Phys Exam - Physical Examination Constitutional: NAD HEENT: PERRLA, sclera anicteric slightly dry mm Respiratory: no wheezing, no rales, no rhonchi, clear to auscultation bilateral limited anterior exam Cardiovascular: RRR, no significant murmur, no rub Gastrointestinal: soft, positive bowel sounds PEG site c/d/i Musculoskeletal: no edema, pulses present Dx/Plan - Plan * 62M hx prior CVA who p/w decreased mentation greater than 3hrs in duration. He was brought in by his cousin whom he lives with. * R sided MCA infarct w/ L sided deficits * apprec neuro c/s * PT/ OT/ ST * continue atorvastatin * ASA held for EGD + PEG today dysphagia from R sided MCA * apprec GI c/s * s/p 07/31 PEG surgical approach * apprec surg c/s * start TF when cleared HTN * imprv ctrl SBP 130s ovn ARF on admission * likely pre-renal etiology from concurrent dehydration on admission * resolved Diet: TF initiation as per GI and surgery activity: as evangelina dvt ppx: enoxaparin held at midnight for procedure t/c initiating d/c planning once TF is at goal Review of Systems - Medications/Allergies Allergies/Adverse Reactions: Allergies Allergy/AdvReac Type Severity Reaction Status Date / Time No Known Drug Allergies Allergy Verified 03/13/16 20:16 Medications: Current Medications Lipase/Protease/Amylase (Corky Dillard 66446) 1 cap FS .PER PROTOCOL PRN PRN Reason: TUBE OCCLUSION PROTOCOL Atorvastatin Calcium (Lipitor) 40 mg PO HS [facility] Last Admin: 07/31/17 20:21 Dose: Not Given Famotidine (Pepcid) 20 mg SLOW IVP 2100 EVAN Last Admin: 07/31/17 20:22 Dose: 20 mg Dextrose/Sodium Chloride (D5 0.9% Ns) 1,000 mls @ 100 mls/hr IV .Q10H EVAN Last Admin: 07/31/17 16:58 Dose: 1,000 mls Ondansetron HCl (Zofran) 4 mg IVP Q6H PRN PRN Reason: Nausea/Vomiting Sodium Bicarbonate (Bicarbonate, Sodium) 650 mg PER TUBE .PER PROTOCOL PRN PRN Reason: ENTERAL TUBE OCCLUSION Sodium Chloride (Flush - Normal Saline) 10 ml IVF Q12HR EVAN Last Admin: 07/31/17 20:24 Dose: 10 ml Sodium Chloride (Flush - Normal Saline) 10 ml IVF PRN PRN PRN Reason: Saline Flush
[2017-08-01] MEDS: Dextrose 5 % And 0.9 % NaCl 1,000 ML IV SCH ×2 (04:57→13:22)
--- NOTE | 2017-08-01 17:11 | PDOC.PN ---
- Subjective Encounter Start Date: 08/01/17 Encounter Start Time: 17:10 Subjective: Seen and examined --initiated tube feeding - Objective Vital Signs & Weight: Vital Signs (12 hours) Temp Pulse Resp BP Pulse Ox 08/01/17 15:56 98.0 F 71 14 152/108 H 100 08/01/17 11:05 97.7 F 58 L 18 130/85 97 08/01/17 08:00 97.7 F 58 L 18 146/85 H 95 Weight Admit Weight 152 lb 8 oz Weight 138 lb 7 oz I&O: 07/31/17 08/01/17 08/02/17 06:59 06:59 06:59 Intake Total 1259 1200 90 Balance 1259 1200 90 Result Diagrams: 07/27/17 04:38 07/27/17 04:38 Phys Exam - Physical Examination Constitutional: NAD HEENT: PERRLA, moist MMs, sclera anicteric, oral pharynx no lesions Neck: no nodes, no JVD, supple, full ROM Respiratory: no wheezing, no rales, no rhonchi, clear to auscultation bilateral Cardiovascular: RRR, no significant murmur, no rub Peg tube in place Musculoskeletal: pulses present Dx/Plan (1) Dysphagia as late effect of cerebrovascular accident (CVA) Code(s): I69.391 - DYSPHAGIA FOLLOWING CEREBRAL INFARCTION Status: Acute Comment: Diuscussed with Causin who is MPOA, pt will need Tube feeding and possible PEg before dischagre if his Deficits do not return. PEG tube tomorrow, will hold and Asporin and lovenox. (2) CVA (cerebral vascular accident) Code(s): I63.9 - CEREBRAL INFARCTION, UNSPECIFIED Status: Acute Comment: Pt has persuistant Deficits , with left upper and lower extremity, motor and sensory deficits, Pt has severe Aphasia and Not following commands, pending Echo , preliminary report shows severe Aortic Stenosis. MRI confirmed Right MCA (3) HTN (hypertension) Code(s): I10 - ESSENTIAL (PRIMARY) HYPERTENSION Status: Chronic Comment: Paitent will be continued on PRN meds. (4) Hemiplegia affecting right dominant side Code(s): G81.91 - HEMIPLEGIA, UNSPECIFIED AFFECTING RIGHT DOMINANT SIDE Status : Chronic (5) Acute kidney failure Status: Resolved Qualifiers: Acute renal failure type: unspecified Qualified Code(s): N17.9 - Acute kidney failure, unspecified - Plan plan discussed w/ family, PT/OT, forensic social worker, respiratory therapy [facility] helping with discharge planning -: PT/OT, Home health per [facility] reccommendation * .
--- NOTE | 2017-08-01 19:47 | PRG ---
DATE OF SERVICE: 08/01/2017 ATTENDING PHYSICIAN: Dr. Antonio Caldwell. SUBJECTIVE: The patient is a 62-year-old -[place] male with a previous history of left-sided cerebrovascular accident. He underwent an attempted PEG tube placement on 07/30/2017, which was uns uccessful. This was reattempted on 07/31/2017 and this was successful. Upon my examination this mor ivan, there are no apparent abnormalities with the gastrostomy tube and it is safe to use. OBJECTIVE: VITAL SIGNS: Blood pressure 146/85, pulse 55, temperature 98.5, respirations 16, O2 sat 95% on room air. GENERAL: A middle-aged adult male who is sleeping in bed. He does not appear to be in any acute dis tress. RESPIRATORY: His lungs are clear to auscultation bilaterally. HEART: He has a regular rate and rhythm. ABDOMEN: Soft, nontender, nondistended. He has a gastrostomy tube in place. ASSESSMENT: 1. Status post cerebrovascular accident. 2. Acute and possible chronic dysphagia secondary to #1. PLAN: 1. Okay to use PEG tube for feeding. 2. Surgery will sign off of this patient at this time. Please feel free to contact us with question s as they arise or if further consultation is needed. This patient was seen and examined along with Dr. Antonio Caldwell on rounds this morning who agrees wit h this assessment and plan.
[2017-08-01] MEDS: Atorvastatin Calcium 40 MG TAB PO SCH (20:02)
[2017-08-01] MEDS: Famotidine/PF 20 mg/2ml Vial SLOW IVP SCH (20:02)
[2017-08-02] MEDS: Dextrose 5 % And 0.9 % NaCl 1,000 ML IV SCH (05:06)
[2017-08-02] MEDS: Aggrenox 200-25mg CAP PO SCH (20:30)
[2017-08-02] MEDS: Atorvastatin Calcium 40 MG TAB PO SCH (20:30)
[2017-08-02] MEDS: Famotidine/PF 20 mg/2ml Vial SLOW IVP SCH (20:31)
[2017-08-02] MEDS ORDERED: Atorvastatin Calcium 20 MG TAB PO SCH (21:00)
--- NOTE | 2017-08-02 21:09 | PDOC.PN ---
- Subjective Encounter Start Date: 08/02/17 Encounter Start Time: 21:08 Subjective: seen and examined no new complaint - Objective Vital Signs & Weight: Vital Signs (12 hours) Temp Pulse Pulse Pulse Resp BP BP 08/02/17 19:51 98.1 F 69 16 08/02/17 15:18 97.4 F L 65 18 08/02/17 11:15 97.5 F L 68 18 08/02/17 11:11 61 62 158/101 H 154/110 H BP Pulse Ox 08/02/17 19:51 158/108 H 95 08/02/17 15:18 159/105 H 98 08/02/17 11:15 161/114 H 95 08/02/17 11:11 Weight Admit Weight 152 lb 8 oz Weight 141 lb 3 oz I&O: 08/01/17 08/02/17 08/03/17 06:59 06:59 06:59 Intake Total 1200 2665 1448 Balance 1200 2665 1448 Result Diagrams: 07/27/17 04:38 07/27/17 04:38 Phys Exam - Physical Examination Constitutional: NAD HEENT: PERRLA, moist MMs, sclera anicteric, TM's clear Neck: no nodes, no JVD, supple, full ROM Respiratory: no wheezing, no rales, no rhonchi Cardiovascular: no significant murmur Gastrointestinal: soft, non-tender, no distention, positive bowel sounds Musculoskeletal: no edema, pulses present Dx/Plan (1) Dysphagia as late effect of cerebrovascular accident (CVA) Code(s): I69.391 - DYSPHAGIA FOLLOWING CEREBRAL INFARCTION Status: Acute Comment: Diuscussed with Causin who is MPOA, pt will need Tube feeding and possible PEg before dischagre if his Deficits do not return. PEG tube tomorrow, will hold and Asporin and lovenox. (2) CVA (cerebral vascular accident) Code(s): I63.9 - CEREBRAL INFARCTION, UNSPECIFIED Status: Acute Comment: Pt has persuistant Deficits , with left upper and lower extremity, motor and sensory deficits, Pt has severe Aphasia and Not following commands, pending Echo , preliminary report shows severe Aortic Stenosis. MRI confirmed Right MCA (3) HTN (hypertension) Code(s): I10 - ESSENTIAL (PRIMARY) HYPERTENSION Status: Chronic Comment: Paitent will be continued on PRN meds. (4) Hemiplegia affecting right dominant side Code(s): G81.91 - HEMIPLEGIA, UNSPECIFIED AFFECTING RIGHT DOMINANT SIDE Status : Chronic (5) Acute kidney failure Status: Resolved Qualifiers: Acute renal failure type: unspecified Qualified Code(s): N17.9 - Acute kidney failure, unspecified - Plan cont current plan of care, PT/OT, vp digital marketing social media and crm, respiratory therapy Dispo planning with [facility] * .
[2017-08-03] MEDS ORDERED: Lisinopril 10 MG TAB PO SCH (09:00)
[2017-08-03] MEDS ORDERED: Amlodipine 10 MG TAB PO SCH (09:00)
[2017-08-03] MEDS: Aggrenox 200-25mg CAP PO SCH (09:38)
--- NOTE | 2017-08-03 13:19 | PDOC.PN ---
- Subjective Encounter Start Date: 08/03/17 Encounter Start Time: 13:18 Subjective: Seen and examined no new complaint - Objective Vital Signs & Weight: Vital Signs (12 hours) Temp Pulse Resp BP BP Pulse Ox 08/03/17 12:00 98.3 F 73 14 134/85 96 08/03/17 09:24 70 158/106 H 08/03/17 09:23 158/106 H 08/03/17 08:00 97.8 F 70 18 158/106 H 95 08/03/17 03:39 98.9 F 69 18 186/122 H 98 Weight Admit Weight 152 lb 8 oz Weight 138 lb 11.2 oz I&O: 08/02/17 08/03/17 08/04/17 06:59 06:59 06:59 Intake Total 2665 2242 540 Balance 2665 2242 540 Result Diagrams: 07/27/17 04:38 07/27/17 04:38 Phys Exam - Physical Examination Constitutional: NAD HEENT: PERRLA, moist MMs, sclera anicteric, TM's clear Neck: no nodes, no JVD, supple, full ROM Respiratory: no wheezing, no rales, no rhonchi, clear to auscultation bilateral Cardiovascular: RRR, no significant murmur, no rub Gastrointestinal: soft, non-tender, no distention, positive bowel sounds Dx/Plan (1) Dysphagia as late effect of cerebrovascular accident (CVA) Code(s): I69.391 - DYSPHAGIA FOLLOWING CEREBRAL INFARCTION Status: Acute Comment: Diuscussed with Causin who is MPOA, pt will need Tube feeding and possible PEg before dischagre if his Deficits do not return. PEG tube tomorrow, will hold and Asporin and lovenox. (2) CVA (cerebral vascular accident) Code(s): I63.9 - CEREBRAL INFARCTION, UNSPECIFIED Status: Acute Comment: Pt has persuistant Deficits , with left upper and lower extremity, motor and sensory deficits, Pt has severe Aphasia and Not following commands, pending Echo , preliminary report shows severe Aortic Stenosis. MRI confirmed Right MCA (3) HTN (hypertension) Code(s): I10 - ESSENTIAL (PRIMARY) HYPERTENSION Status: Chronic Comment: Paitent will be continued on PRN meds. (4) Hemiplegia affecting right dominant side Code(s): G81.91 - HEMIPLEGIA, UNSPECIFIED AFFECTING RIGHT DOMINANT SIDE Status : Chronic (5) Acute kidney failure Status: Resolved Qualifiers: Acute renal failure type: unspecified Qualified Code(s): N17.9 - Acute kidney failure, unspecified - Plan plan discussed w/ family, PT/OT, drug abuse social worker, respiratory therapy Dispo planning -casemanager coordinating * .
[2017-08-03] MEDS ORDERED: Clopidogrel Bisulfate 75 MG TAB PER TUBE SCH (14:30)
[2017-08-03] MEDS ORDERED: Aggrenox 200-25mg CAP PER TUBE SCH (21:00)
[2017-08-03] MEDS: Famotidine/PF 20 mg/2ml Vial SLOW IVP SCH (21:48)
[2017-08-03] MEDS: Atorvastatin Calcium 20 MG TAB PER TUBE SCH (21:48)
[2017-08-04] MEDS: Amlodipine 10 MG TAB PER TUBE SCH (09:20)
[2017-08-04] MEDS: Clopidogrel Bisulfate 75 MG TAB PER TUBE SCH (09:20)
[2017-08-04] MEDS: Lisinopril 10 MG TAB PER TUBE SCH (09:21)
--- NOTE | 2017-08-04 13:39 | PDOC.PN ---
- Subjective Encounter Start Date: 08/04/17 Encounter Start Time: 13:39 cc: dYSPHAGIA SUB: PER RN P is having excessive secretions and having residuals - Objective Vital Signs & Weight: Vital Signs (12 hours) Temp Pulse Resp BP BP Pulse Ox 08/04/17 12:00 98.1 F 73 20 108/74 91 L 08/04/17 09:21 136/87 08/04/17 09:20 77 136/87 08/04/17 08:00 97.4 F L 77 18 136/87 95 08/04/17 04:00 97.3 F L 71 16 135/82 98 Weight Admit Weight 152 lb 8 oz Weight 136 lb 1 oz I&O: 08/03/17 08/04/17 08/05/17 06:59 06:59 06:59 Intake Total 2241 2049 1079 Balance 2241 2049 1079 Result Diagrams: 08/04/17 14:17 08/04/17 14:17 Dx/Plan - Plan cont current plan of care - Physical Examination Constitutional: NAD HEENT: moist MMs, sclera anicteric Thoat: not able to asses as pt is not cooperatove Neck: no nodes, no JVD, supple, full ROM Respiratory: no wheezing, no rales, no rhonchi,positive crackles Cardiovascular: RRR, no significant murmur, no rub Gastrointestinal: soft, non-tender, no distention, positive bowel sounds BRAKE SPECIALIST: Aphasia, positive dysphagia, not following commands Dx/Plan (1) Dysphagia as late effect of cerebrovascular accident (CVA) Code(s): I69.391 - DYSPHAGIA FOLLOWING CEREBRAL INFARCTION Status: Acute Comment: Diuscussed with Causin who is MPOA, pt will need Tube feeding and possible PEg before dischagre if his Deficits do not return. PEG tube tomorrow, will hold and Asporin and lovenox. (2) CVA (cerebral vascular accident) Code(s): I63.9 - CEREBRAL INFARCTION, UNSPECIFIED Status: Acute Comment: Pt has persuistant Deficits , with left upper and lower extremity, motor and sensory deficits, Pt has severe Aphasia and Not following commands, pending Echo , preliminary report shows severe Aortic Stenosis. MRI confirmed Right MCA (3) HTN (hypertension) Code(s): I10 - ESSENTIAL (PRIMARY) HYPERTENSION Status: Chronic Comment: Paitent will be continued on PRN meds. (4) Hemiplegia affecting right dominant side Code(s): G81.91 - HEMIPLEGIA, UNSPECIFIED AFFECTING RIGHT DOMINANT SIDE Status : Chronic (5) Acute kidney failure Status: Resolved Qualifiers: Acute renal failure type: unspecified Qualified Code(s): N17.9 - Acute kidney failure, unspecified - Plan Contineu tube feeds, not reached goal. W will add reglan 5mg iv q6hrs Monitoir bp. continue current treatment Check cxr, bc, bmp now will add scopalalmine due o excessive secretions case d.w pt & RN
[2017-08-04 14:24] LABS: #Eosinphils 0.3 thou/uL (0.0-0.7); #Lymphocytes 2.4 thou/uL (1.20-3.40); #Monocytes 0.8 thou/uL (0.11-0.59); #Neutrophils 5.8 thou/uL (1.40-6.50); %Basophils 0.5 % (0.0-1.0); %Eosinophils 3.4 % (0.0-10.0); %Monocytes 8.7 % (0.0-10.0); %Neutrophils 61.4 % (42.0-75.0); Hemoglobin 13.8 g/dL (14.0-18.0); Mean Corpuscular HGB CONC 34.2 g/dL (32.0-36.0); Mean Corpuscular Hemoglobin 29.3 pg (27.0-31.0); Mean Corpuscular Volume 85.6 fl (80.0-94.0); Mean Platelet Volume 6.7 fL (7.4-10.4); Platelet Count 321 thou/uL (130-400); RBC Distribution Width 12.3 % (11.5-14.5); Red Blood Cell (RBC) Count 4.72 mill/uL (4.70-6.10); White Blood Cell (WBC) Count 9.4 thou/uL (4.8-10.8)
[2017-08-04 14:51] LABS: Anion Gap 13 mmol/L (10-20); BUN (Urea Nitrogen) 15 mg/dL (8.4-25.7); Calc. Creatinine Clearance 63 mL/min (70-130); Calcium 9.1 mg/dL (7.8-10.44); Carbon Dioxide 24 mmol/L (23-31); Chloride 105 mmol/L (98-107); Estimated GFR-MDRD 85; Glucose 141 mg/dL (80-115); Potassium 3.9 mmol/L (3.5-5.1); Sodium 138 mmol/L (136-145)
--- NOTE | 2017-08-04 15:50 | RAD ---
RADIOGRAPH CHEST 1 VIEW: DATE: 08-04-17 TIME: 2:35 p.m. HISTORY: 62-year-old male status post multiple cerebral infarctions, including acute cerebral infarction in th e right middle cerebral artery territory. Suspected aspiration. FINDINGS: The thoracic aorta is tortuous and ectatic. There is no evidence of air space density, pneumothorax, or pulmonary edema. The lateral costophrenic angles are sharp. Mild streaky density at the right maurice ng base, unchanged compared to 07-26-17, probably scar. The other possibility is subsegmental atelecta sis. There is no cardiomegaly. IMPRESSION: 1) No acute pulmonary findings. 2) Ectasia of thoracic aorta. 3) Mild streaky density at the right lung base is consistent with either scar or subsegmental atelect asis. alena POS: THOMPSON
[2017-08-04] MEDS ORDERED: Scopolamine 1.5 mg/72 hour Patch TOP SCH (18:00)
[2017-08-04] MEDS: Scopolamine 1.5 mg/72 hour Patch TOP SCH (18:53)
[2017-08-04] MEDS: Metoclopramide HCl 10 MG/2 ML VIAL IVP SCH (18:54)
[2017-08-04] MEDS: Atorvastatin Calcium 20 MG TAB PER TUBE SCH (20:57)
[2017-08-04] MEDS: Famotidine/PF 20 mg/2ml Vial SLOW IVP SCH (20:57)
[2017-08-05] MEDS: Metoclopramide HCl 10 MG/2 ML VIAL IVP SCH ×4 (01:07→18:22)
[2017-08-05] MEDS: Clopidogrel Bisulfate 75 MG TAB PER TUBE SCH (09:44)
[2017-08-05] MEDS: Amlodipine 10 MG TAB PER TUBE SCH (09:45)
[2017-08-05] MEDS: Lisinopril 10 MG TAB PER TUBE SCH (09:45)
[2017-08-05] MEDS ORDERED: Acetaminophen 500 MG TAB PER TUBE PRN (17:14)
--- NOTE | 2017-08-05 20:21 | PDOC.PN ---
- Subjective Encounter Start Date: 08/05/17 Encounter Start Time: 20:15 Subjective: f/u R MCA territorial CVA with aphasia, L hemiplegia, dysphagia s/p PEG -: on Jevity 1.5 bolus feeds. No high residuals and tolerating TF's. Awaiting -: SNF/Rehab options. - Objective MAR Reviewed: Yes Vital Signs & Weight: Vital Signs (12 hours) Temp Pulse Resp BP BP BP BP 08/05/17 18:01 98.9 F 72 14 112/72 08/05/17 12:00 98.1 F 70 16 82/52 L 08/05/17 10:20 118/72 120/76 08/05/17 09:45 68 137/80 Pulse Ox 08/05/17 18:01 100 08/05/17 12:00 95 08/05/17 10:20 08/05/17 09:45 Weight Admit Weight 152 lb 8 oz Weight 141 lb 8 oz I&O: 08/04/17 08/05/17 08/06/17 06:59 06:59 06:59 Intake Total 2049 2469 2079 Balance 2049 2469 2079 Result Diagrams: 08/04/17 14:17 08/04/17 14:17 Radiology Reviewed by me: Yes (MRI Brain - R MCA territorial infarct) EKG Reviewed by me: Yes (Tele - SR) Phys Exam - Physical Examination Constitutional: NAD HEENT: PERRLA, oral pharynx no lesions Neck: no JVD, supple Respiratory: no wheezing, clear to auscultation bilateral Cardiovascular: RRR PEG site intact Gastrointestinal: soft, non-tender, no distention, positive bowel sounds L hemiparesis, dysphagia and aphasia Musculoskeletal: pulses present Skin: normal turgor, cap refill <2 seconds Dx/Plan (1) Dysphagia as late effect of cerebrovascular accident (CVA) Code(s): I69.391 - DYSPHAGIA FOLLOWING CEREBRAL INFARCTION Status: Acute Comment: s/p PEG placement with tolerating Jevity 1.5, monitor for residuals (2) CVA (cerebral vascular accident) Code(s): I63.9 - CEREBRAL INFARCTION, UNSPECIFIED Status: Acute Qualifiers: Precerebral and cerebral artery: middle cerebral artery Laterality of affected vessel: right Comment: Pt has persuistant Deficits , with left upper and lower extremity, motor and sensory deficits, Pt has severe Aphasia and Not following commands, pending Echo, preliminary report shows severe Aortic Stenosis. MRI confirmed Right MCA, continue ASA and Plavix, Lipitor (3) HTN (hypertension) Code(s): I10 - ESSENTIAL (PRIMARY) HYPERTENSION Status: Chronic Qualifiers: Hypertension type: essential hypertension Qualified Code(s): I10 - Essential (primary) hypertension Comment: Continue current antihypertensives (4) Acute kidney failure Status: Acute Qualifiers: Acute renal failure type: unspecified Qualified Code(s): N17.9 - Acute kidney failure, unspecified Comment: Resolving - Plan PT/OT, psychosocial rehabilitation counselor, speech therapy, DVT proph w/SCDs Stable currently -: CM assisting with Rehab/SNF options -: Continue ASA and Plavix -: Continue Lipitor -: Nutritional support with Jevity 1.5 bolus feeds * Await options for SNF
[2017-08-05] MEDS: Famotidine/PF 20 mg/2ml Vial SLOW IVP SCH (20:33)
[2017-08-05] MEDS: Atorvastatin Calcium 20 MG TAB PER TUBE SCH (20:33)
[2017-08-06] MEDS: Metoclopramide HCl 10 MG/2 ML VIAL IVP SCH ×4 (01:03→17:42)
[2017-08-06] MEDS: Lisinopril 10 MG TAB PER TUBE SCH (10:14)
[2017-08-06] MEDS: Clopidogrel Bisulfate 75 MG TAB PER TUBE SCH (10:14)
[2017-08-06] MEDS: Amlodipine 10 MG TAB PER TUBE SCH (10:15)
[2017-08-06 13:47] VITALS: BMI 20.5
--- NOTE | 2017-08-06 16:45 | PDOC.PN ---
- Subjective Encounter Start Date: 08/06/17 Encounter Start Time: 16:40 Subjective: f/u for R MCA territorial CVA with L hemiparesis, aphasia and dysphagia -: tolerating Jevity 1.5 bolus feeds. Plan for d/c home with HH - Objective MAR Reviewed: Yes Vital Signs & Weight: Vital Signs (12 hours) Temp Pulse Pulse Resp BP BP BP 08/06/17 15:05 97.5 F L 98 24 H 114/78 08/06/17 12:00 96.6 F L 81 20 116/81 08/06/17 10:15 68 125/79 08/06/17 10:14 125/79 08/06/17 08:37 68 123/72 08/06/17 08:00 99.3 F 68 16 125/79 08/06/17 07:40 97.3 F L 71 18 Pulse Ox 08/06/17 15:05 94 L 08/06/17 12:00 96 08/06/17 10:15 08/06/17 10:14 08/06/17 08:37 08/06/17 08:00 95 08/06/17 07:40 97 Weight Admit Weight 152 lb 8 oz Weight 139 lb 5 oz I&O: 08/05/17 08/06/17 08/07/17 06:59 06:59 06:59 Intake Total 2470 3254 920 Balance 2470 3254 920 Result Diagrams: 08/04/17 14:17 08/04/17 14:17 EKG Reviewed by me: Yes (Tele - SR) Phys Exam - Physical Examination aphasic, somnolent HEENT: PERRLA, oral pharynx no lesions Neck: no JVD, supple Respiratory: no wheezing, clear to auscultation bilateral Cardiovascular: RRR PEG site CDI Gastrointestinal: soft, non-tender, no distention, positive bowel sounds Musculoskeletal: no edema, pulses present L hemiparesis, aphasic, dysphagia Skin: normal turgor, cap refill <2 seconds Dx/Plan (1) Dysphagia as late effect of cerebrovascular accident (CVA) Code(s): I69.391 - DYSPHAGIA FOLLOWING CEREBRAL INFARCTION Status: Acute Comment: s/p PEG placement with tolerating Jevity 1.5, monitor for residuals (2) CVA (cerebral vascular accident) Code(s): I63.9 - CEREBRAL INFARCTION, UNSPECIFIED Status: Acute Qualifiers: Precerebral and cerebral artery: middle cerebral artery Laterality of affected vessel: right Comment: L hemiparesis, motor and sensory deficits, Pt has severe Aphasia and Not following commands, severe Aortic Stenosis. MRI confirmed Right MCA, continue ASA and Plavix, Lipitor (3) HTN (hypertension) Code(s): I10 - ESSENTIAL (PRIMARY) HYPERTENSION Status: Chronic Qualifiers: Hypertension type: essential hypertension Qualified Code(s): I10 - Essential (primary) hypertension Comment: Continue current antihypertensives (4) Acute kidney failure Status: Acute Qualifiers: Acute renal failure type: unspecified Qualified Code(s): N17.9 - Acute kidney failure, unspecified Comment: Resolving - Plan PT/OT, high school social studies teacher, speech therapy, respiratory therapy, DVT proph w/SCDs Stable overall -: PT/OT/ST with HH on d/c -: Continue ASA and Plavix daily -: Continue Lipitor 20mg HS -: Likely home with HH in am 08/07/17 * .
[2017-08-06] MEDS: Atorvastatin Calcium 20 MG TAB PER TUBE SCH (21:23)
[2017-08-06] MEDS: Famotidine/PF 20 mg/2ml Vial SLOW IVP SCH (21:24)
[2017-08-07] MEDS: Metoclopramide HCl 10 MG/2 ML VIAL IVP SCH ×4 (05:24→17:28)
[2017-08-07] MEDS: Lisinopril 10 MG TAB PER TUBE SCH (08:57)
[2017-08-07] MEDS: Clopidogrel Bisulfate 75 MG TAB PER TUBE SCH (08:57)
[2017-08-07] MEDS: Amlodipine 10 MG TAB PER TUBE SCH (08:57)
[2017-08-07] MEDS: Scopolamine 1.5 mg/72 hour Patch TOP SCH (17:32)
--- NOTE | 2017-08-07 19:29 | PDOC.PN ---
- Subjective Encounter Start Date: 08/07/17 Encounter Start Time: 15:00 Subjective: f/u s/p R MCA territorial CVA with L hemiparesis, dysphagia and post -: PEG with Jevity bolus feeds. No new reported events per nursing. Plan for -: home with home health in am. - Objective MAR Reviewed: Yes Vital Signs & Weight: Vital Signs (12 hours) Temp Pulse Resp BP BP Pulse Ox 08/07/17 15:55 98 F 76 20 108/67 94 L 08/07/17 12:00 97.9 F 78 20 126/75 94 L 08/07/17 08:57 75 133/96 H 08/07/17 08:00 98.1 F 75 18 96 Weight Admit Weight 152 lb 8 oz Weight 136 lb 1 oz I&O: 08/06/17 08/07/17 08/08/17 06:59 06:59 06:59 Intake Total 3254 3216 1161 Balance 3254 3216 1161 Result Diagrams: 08/04/17 14:17 08/04/17 14:17 Phys Exam - Physical Examination Constitutional: NAD HEENT: PERRLA, oral pharynx no lesions Neck: no JVD, supple Respiratory: no wheezing Cardiovascular: RRR PEG site CDI Gastrointestinal: soft, non-tender, no distention, positive bowel sounds Musculoskeletal: no edema, pulses present L hemiparesis, aphasic, dysphagia Skin: normal turgor, cap refill <2 seconds Dx/Plan (1) Dysphagia as late effect of cerebrovascular accident (CVA) Code(s): I69.391 - DYSPHAGIA FOLLOWING CEREBRAL INFARCTION Status: Acute Comment: s/p PEG placement with tolerating Jevity 1.5, monitor for residuals (2) CVA (cerebral vascular accident) Code(s): I63.9 - CEREBRAL INFARCTION, UNSPECIFIED Status: Acute Qualifiers: Precerebral and cerebral artery: middle cerebral artery Laterality of affected vessel: right Comment: L hemiparesis, motor and sensory deficits, Pt has severe Aphasia and Not following commands, severe Aortic Stenosis. MRI confirmed Right MCA, continue ASA and Plavix, Lipitor (3) HTN (hypertension) Code(s): I10 - ESSENTIAL (PRIMARY) HYPERTENSION Status: Chronic Qualifiers: Hypertension type: essential hypertension Qualified Code(s): I10 - Essential (primary) hypertension Comment: Continue current antihypertensives (4) Acute kidney failure Status: Acute Qualifiers: Acute renal failure type: unspecified Qualified Code(s): N17.9 - Acute kidney failure, unspecified Comment: Resolving - Plan plan discussed w/ family, PT/OT, social media marketing specialist, speech therapy, DVT proph w/ SCDs Stable currently -: Continue ASA and Plavix per tube daily -: Continue Lipitor daily -: D/C Reglan -: Plan for discharge home with [facility] 08/08/17 * .
[2017-08-07] MEDS ORDERED: Famotidine 40 MG/4 ML VIAL SLOW IVP SCH (21:00)
[2017-08-07] MEDS: Atorvastatin Calcium 20 MG TAB PER TUBE SCH (21:29)
[2017-08-08] MEDS: Lisinopril 10 MG TAB PER TUBE SCH (09:06)
[2017-08-08] MEDS: Amlodipine 10 MG TAB PER TUBE SCH (09:07)
[2017-08-08] MEDS: Clopidogrel Bisulfate 75 MG TAB PER TUBE SCH (09:07)
--- NOTE | 2017-08-08 10:06 | PDOC.PN ---
- Subjective Encounter Start Date: 08/08/17 Encounter Start Time: 08:15 Subjective: is closing eyes, non verbal -: not in distress - Objective MAR Reviewed: Yes Vital Signs & Weight: Vital Signs (12 hours) Temp Pulse Resp BP BP Pulse Ox 08/08/17 09:07 80 150/95 H 08/08/17 09:06 150/95 H 08/08/17 08:00 98.5 F 93 18 150/95 H 98 08/08/17 03:23 97.7 F 74 16 133/91 H 95 08/07/17 23:39 98.2 F 81 16 128/91 H 93 L Weight Admit Weight 152 lb 8 oz Weight 138 lb 6.4 oz I&O: 08/07/17 08/08/17 08/09/17 06:59 06:59 06:59 Intake Total 3215 2027 Balance 3215 2027 Result Diagrams: 08/04/17 14:17 08/04/17 14:17 Phys Exam - Physical Examination HEENT: moist MMs, sclera anicteric Neck: no JVD, supple Respiratory: no wheezing, no rales Cardiovascular: RRR, no significant murmur Gastrointestinal: soft, no distention, positive bowel sounds peg+ Musculoskeletal: pulses present left hemiparesis Dx/Plan (1) CVA (cerebral vascular accident) Code(s): I63.9 - CEREBRAL INFARCTION, UNSPECIFIED Status: Acute Qualifiers: Precerebral and cerebral artery: middle cerebral artery Laterality of affected vessel: right Comment: L hemiparesis, motor and sensory deficits, Pt has severe Aphasia and Not following commands, severe Aortic Stenosis. MRI confirmed Right MCA, continue ASA and Plavix, Lipitor (2) Dysphagia as late effect of cerebrovascular accident (CVA) Code(s): I69.391 - DYSPHAGIA FOLLOWING CEREBRAL INFARCTION Status: Acute Comment: s/p PEG placement with tolerating Jevity 1.5, monitor for residuals (3) Aortic stenosis Code(s): I35.0 - NONRHEUMATIC AORTIC (VALVE) STENOSIS Status: Chronic Qualifiers: Cardiac valve disease etiology: nonrheumatic Qualified Code(s): I35.0 - Nonrheumatic aortic (valve) stenosis (4) Dyslipidemia Code(s): E78.5 - HYPERLIPIDEMIA, UNSPECIFIED Status: Chronic (5) HTN (hypertension) Code(s): I10 - ESSENTIAL (PRIMARY) HYPERTENSION Status: Chronic Qualifiers: Hypertension type: essential hypertension Qualified Code(s): I10 - Essential (primary) hypertension Comment: Continue current antihypertensives - Plan hemostable -: needs placement but family prefer to take him home, needs 24/12 supervision -: d/w case management -: may dc home if arrangements at home are made * . Review of Systems - Medications/Allergies Allergies/Adverse Reactions: Allergies Allergy/AdvReac Type Severity Reaction Status Date / Time No Known Drug Allergies Allergy Verified 03/13/16 20:16 Medications: Current Medications Acetaminophen (Tylenol) 1,000 mg PER TUBE Q6H PRN PRN Reason: Pain Amlodipine Besylate (Norvasc) 10 mg PER TUBE DAILY [facility] Last Admin: 08/08/17 09:07 Dose: 10 mg Lipase/Protease/Amylase ([place] [id number]) 1 cap FS .PER PROTOCOL PRN PRN Reason: TUBE OCCLUSION PROTOCOL Aspirin (Aspirin Chewable) 81 mg PER TUBE DAILY [facility] Last Admin: 08/08/17 09:07 Dose: 81 mg Atorvastatin Calcium (Lipitor) 20 mg PER TUBE HS [facility] Last Admin: 08/07/17 21:29 Dose: 20 mg Clopidogrel Bisulfate (Plavix) 75 mg PER TUBE DAILY [facility] Last Admin: 08/08/17 09:07 Dose: 75 mg Famotidine (Pepcid) 20 mg SLOW IVP 2100 [facility]AN Last Admin: 08/07/17 21:30 Dose: 20 mg Lisinopril (Zestril) 10 mg PER TUBE DAILY [facility] Last Admin: 08/08/17 09:06 Dose: 10 mg Ondansetron HCl (Zofran) 4 mg IVP Q6H PRN PRN Reason: Nausea/Vomiting Scopolamine (Transderm Scop) 1.5 mg TOP Q3D [facility]AN Last Admin: 08/07/17 17:32 Dose: 1.5 mg Sodium Bicarbonate (Bicarbonate, Sodium) 650 mg PER TUBE .PER PROTOCOL PRN PRN Reason: ENTERAL TUBE OCCLUSION Sodium Chloride (Flush - Normal Saline) 10 ml IVF Q12HR [facility] Last Admin: 08/08/17 09:11 Dose: 10 ml Sodium Chloride (Flush - Normal Saline) 10 ml IVF PRN PRN PRN Reason: Saline Flush Last Admin: 08/05/17 18:24 Dose: 10 ml
[2017-08-08 16:01] VITALS: BP 135/89; TEMP 98.3
--- NOTE | 2017-08-08 19:48 | DIS ---
DATE OF ADMISSION: 07/26/2017 DATE OF DISCHARGE: 08/08/2017 DISCHARGE DISPOSITION: To home. PRIMARY DISCHARGE DIAGNOSES: Acute cerebrovascular accident with left hemiparesis, aphasia, dysphagi a, status post PEG tube, moderate to severe aortic stenosis, dyslipidemia, hypertension. PROCEDURES DONE DURING HOSPITALIZATION: Patient has had carotid Doppler done, which showed no hemody namically significant stenosis. CT brain done on the day of admission showed diffuse multifocal bila teral cerebral hemisphere, encephalomalacia with associated parenchymal volume loss. There is also l eft basal ganglia lacunar infarct. MRI brain showed acute right MCA infarct. There was also old lac unar infarct in the left basal ganglia, old infarctions in the left MCA and bilateral WELL PULLER HEAD distributio n. The patient has had a PEG tube placed by Dr. Caldwell on 07/31/2017, blood cultures x2 no growth. H &H is 13 and 40, platelet count 321, MCV is 85. INR 1.1, BUN 15, creatinine 1.0. Total cholesterol 152, triglycerides 52, LDL 105, HDL 37. Urine drug screen was negative. Echo with 2D Doppler done s howed an EF of 55%-60%. There was moderate to severe aortic stenosis with a peak gradient of 48 mmHg and mean gradient of 24 mmHg. INPATIENT CONSULTS: Dr. Brewer for Neurology, Dr. Caldwell for General Surgery. DISCHARGE MEDICATIONS: Patient to continue on Norvasc 10 mg p.o. daily, aspirin 81 mg p.o. daily, Pl avix 75 mg p.o. daily, Lipitor 20 mg p.o. at bedtime, lisinopril 10 mg p.o. daily. ALLERGIES: No known drug allergies. DISCHARGE PLAN: Patient to follow up with his primary care physician in one week and Dr. Brewer as advised. BRIEF COURSE DURING HOSPITALIZATION: The patient initially was found unresponsive at home around 6:0 0 in the morning. On arrival, the patient was still not oriented and was unable to communicate or gi ve any history. The patient was found to have had left hemiparesis on clinical exam and was admitted to stroke unit with complete neurologic workup. MRI done confirmed right MCA infarct with left evangelista paresis. The patient also has had prior CVA. He is also aphasic and had dysphagia as well. General surgical consultation with Dr. Caldwell was requested for placement of PEG tube. Case management consu ltation was requested for placement. The family, especially his cousin who is also the power of atto rney for patient, he does not want him to be placed. The family is ready for 24/12 care for him at [facility]. Per case management advice, the patient is being discharged to home with home health and 24/ ca re at home. Please note, the patient is aphasic and barely opens his eyes and does not communicate. Please see a [id number] documentation for the day of discharge on [facility]. The patient's overall prognosis is guarded with patient essentially noncommunicative and is aphasic.
--- NOTE | 2017-08-10 19:56 | EKG ---
Test Reason : AMS Blood Pressure : / mmHG Vent. Rate : 117 BPM Atrial Rate : 117 BPM P-R Int : 152 ms QRS Dur : 078 ms QT Int : 336 ms P-R-T Axes : 054 019 107 degrees QTc Int : 468 ms Sinus tachycardia Possible Left atrial enlargement Abnormal ECG Confirmed by KACI MENDEZ ([id number]), index editor LEONEL MCGOVERN ([id number]) on 08/10/2017 7:55:18 PM Referred By: CARTER Confirmed By:KACI MENDEZ
== END 2017-08-08 18:07 | disposition home health service (06) | DRG 65 ==
LOC: ERS 15:27 → 2SE 17:09 → OBSVTOIN 07-27 14:02
PROVIDERS: ADMIT Family Medicine; ATTEND Family Medicine
PROC: 0DJ08ZZ Inspection of Upper Intestinal Tract, Via Natural or Artificial Opening Endoscopic (ICD-10-PCS; 2017-07-30)
PROC: 0DH68UZ Insertion of Feeding Device into Stomach, Via Natural or Artificial Opening Endoscopic (ICD-10-PCS; principal; 2017-07-31)
DX: I63.9 Cerebral infarction, unspecified (principal); G81.94 Hemiplegia, unspecified affecting left nondominant side; N17.9 Acute kidney failure, unspecified; G93.89 Other specified disorders of brain; E86.0 Dehydration; R47.01 Aphasia; I35.0 Nonrheumatic aortic (valve) stenosis; E78.5 Hyperlipidemia, unspecified; I10 Essential (primary) hypertension; I69.391 Dysphagia following cerebral infarction; Z87.891 Personal history of nicotine dependence; I69.321 Dysphasia following cerebral infarction; Z53.8 Procedure and treatment not carried out for other reasons; R13.12 Dysphagia, oropharyngeal phase
CPT/HCPCS: 36415; 51701; 70450; 70551; 71045; 80048; 80053; 80061; 80306; 81003; 81015; 82553; 83605; 84484; 85025; 85610; 85730; 87040; 93005; 93306; 93880; 96374; A4216; G8978-GP-CN; G8979-GP-CL; G8987-GO-CN; G8988-GO-CL; G8996-GN-CN; G8997-GN-CM; J0670; J0696; J1650; J2001; J2060; J2250; J2704; J2765; J3010; J7042; S0028

== ENCOUNTER 2017-10-09 18:06 | Emergency (ER) | payer OTHER ==
[~2017-10-09 18:06] MED LIST: GASTROGRAFIN 30 ML BOT ONE
[2017-10-09 19:03] LABS: #Basophils 0.1 thou/uL (0.0-0.2); #Eosinphils 0.1 thou/uL (0.0-0.7); #Lymphocytes 2.9 thou/uL (1.20-3.40); #Monocytes 0.6 thou/uL (0.11-0.59); #Neutrophils 6.6 thou/uL (1.40-6.50); %Basophils 0.7 % (0.0-1.0); %Eosinophils 1.2 % (0.0-10.0); %Lymphocytes 27.8 % (21.0-51.0); %Neutrophils 64.2 % (42.0-75.0); Hemoglobin 15.8 g/dL (14.0-18.0); Mean Corpuscular HGB CONC 34.1 g/dL (32.0-36.0); Mean Corpuscular Hemoglobin 29.8 pg (27.0-31.0); Mean Corpuscular Volume 87.3 fl (80.0-94.0); Mean Platelet Volume 7.6 fL (7.4-10.4); Platelet Count 321 thou/uL (130-400); RBC Distribution Width 12.7 % (11.5-14.5); White Blood Cell (WBC) Count 10.3 thou/uL (4.8-10.8)
[2017-10-09 19:24] LABS: ALT (SGPT) 127 U/L (8-55); AST (SGOT) 48 U/L (5-34); Albumin 4.2 g/dL (3.4-4.8); Alkaline Phosphatase 106 U/L (40-150); Anion Gap 13 mmol/L (10-20); BUN (Urea Nitrogen) 21 mg/dL (8.4-25.7); Bilirubin, Total 0.5 mg/dL (0.2-1.2); Calc. Creatinine Clearance 0 mL/min (70-130); Calcium 9.9 mg/dL (7.8-10.44); Carbon Dioxide 26 mmol/L (23-31); Chloride 105 mmol/L (98-107); Estimated GFR-MDRD 86; Globulin 3.7 g/dL (2.4-3.5); Glucose 88 mg/dL (80-115); Potassium 4.4 mmol/L (3.5-5.1); Protein, Total 7.9 g/dL (5.8-8.1); Sodium 140 mmol/L (136-145)
[2017-10-09 19:29] LABS: Bilirubin Negative (Negative); Blood, Urine Negative (Negative); Clarity CLEAR (Clear); Glucose, Urine (Dipstick) Negative (Negative); Leukocyte Negative (Negative); Nitrite Negative (Negative); Protein, Urine (Dipstick) Negative (Neg-Trace); Specific Gravity, Urine 1.008 (1.002-1.036)
--- NOTE | 2017-10-09 20:40 | RAD ---
KUB: 10/09/17 HISTORY: PEG tube check. Respiratory motion is present. Contrast is present within the stomach. No signs of extravasation. IMPRESSION: Injection of contrast confirms the presence within the stomach without signs of extravasation. POS: RICHARDH
== END 2017-10-09 20:50 | disposition home or self-care (01) ==
LOC: ERS 18:06
DX: R45.1 Restlessness and agitation (principal); Z87.891 Personal history of nicotine dependence; Z86.73 Personal history of transient ischemic attack (TIA), and cerebral infarction without residual deficits
CPT/HCPCS: 36415; 51701; 74018; 80053; 81003; 85025; 87086

== ENCOUNTER 2017-10-18 15:18 | Emergency (ER) | payer OTHER ==
--- NOTE | 2017-10-18 17:18 | RAD ---
SINGLE VIEW OF THE ABDOMEN: 10/18/17 COMPARISON: 10/09/17 HISTORY: G-tube dislodgement. Interval replacement. Evaluate for location in the stomach. FINDINGS: A catheter with a balloon is again seen projecting over the left upper quadrant of the abdomen. Contr ast is seen in this catheter. This is also seen within the stomach. There is no evidence of enteric l eak. IMPRESSION: G-tube located within the stomach. POS: RICHARD
[2017-10-18] MEDS ORDERED: Lorazepam 1 MG TAB ONE (17:46)
== END 2017-10-18 19:09 | disposition home or self-care (01) ==
LOC: ERS 15:18
DX: Z43.1 Encounter for attention to gastrostomy (principal); I10 Essential (primary) hypertension; I69.320 Aphasia following cerebral infarction; Z87.891 Personal history of nicotine dependence
CPT/HCPCS: 74018

== ENCOUNTER 2017-10-22 16:19 | Observation (INO) | payer OTHER ==
[2017-10-22] MEDS ORDERED: Lorazepam 2 MG/ML VIAL ONE (19:39)
[2017-10-22] MEDS ORDERED: Ondansetron ODT 4 MG TAB SL PRN (23:19)
[2017-10-22] MEDS ORDERED: Sodium Chloride 0.9% 1,000 ML IV SCH (23:19)
[2017-10-22] MEDS ORDERED: Ondansetron HCl/PF 4 MG/2 ML Vial IVP PRN (23:19)
[2017-10-22] MEDS ORDERED: Acetaminophen 325 MG TAB PO PRN (23:19)
--- NOTE | 2017-10-23 03:05 | CON ---
DATE OF CONSULTATION: 10/23/2017 REASON FOR CONSULTATION: Malfunctioning PEG tube. HISTORY OF PRESENT ILLNESS: The patient is a 62-year-old male with past medical history of hypertension and prior cardiovascular accident who initially presented with altered mental status in 07/2017. He subsequently underwent Speech Pathology swallow study and was unable to complete the examination with increased risk of aspiration as its results. Recommendations at that time were to maintain n.p.o. status due to this increased risk of aspiration and subsequently a PEG tube was placed on 07/31/2017 by the General Surgery Service after attempts at an endoscopically placed PEG tube by the Gastroenterology Service were unsuccessful. He was subsequently discharged to a rehab facility and had been residing there until recently. Since then, he has been pulling at his PEG tube on 10/09/2017 and 10/18/2017 that required imaging to confirm positioning still within the stomach. However, earlier today, he was able to pull the PEG tube completely out of the stoma, prompting his caregiver to seek assistance here at [facility]. Attempts at placing a 20-Zimbabwean replacement PEG tube were initially unsuccessful along with the inability to place a 16-Zimbabwean Salinas catheter. I reviewed the patient at that time and attempts at placement of a 16-Zimbabwean replacement PEG tube were also unsuccessful. REVIEW OF SYSTEMS: Patient is completely aphasic and therefore unable to contribute review of systems. PAST MEDICAL HISTORY: As per HPI. PAST SURGICAL HISTORY: EGD with PEG tube placement in 07/2017. FAMILY HISTORY: No known family history of GI malignancy. SOCIAL HISTORY: Denies any tobacco, alcohol, or illicit drug use. OUTPATIENT MEDICATIONS: Reviewed. ALLERGIES: No known drug allergies. PHYSICAL EXAMINATION: VITAL SIGNS: Temperature 98.2, pulse 94, blood pressure 124/85, respiratory rate 20, satting 94% on room air. GENERAL: Patient is lying in bed in no acute distress. Patient is aphasic and therefore unable to contribute to orientation questions. NECK: Supple. No JVD noted. CARDIOVASCULAR: Regular rate and rhythm with no discernible murmurs, gallops, or rubs. RESPIRATORY: Clear to auscultation bilaterally with no discernible wheezes or rales. ABDOMEN: Normoactive bowel sounds, soft, nontender, nondistended. The PEG tube site was noted in the left upper abdomen without signs of increased erythema, purulence, or skin breakdown. EXTREMITIES: No cyanosis, clubbing, or edema. LABORATORY DATA: No current studies are available for review. IMAGING DATA: No current GI imaging is available for review. ASSESSMENT AND PLAN: Patient is a 62-year-old male with past medical history of hypertension, prior cerebrovascular accident, and dysphagia requiring the placement of PEG tube presenting with inadvertent removal of the PEG tube and inability to replace. PEG tube malfunction. Patient is presenting with the placement of a PEG tube that was placed by General Surgery on 07/31/2017 due to the indication of oropharyngeal dysphagia and increased risk of aspiration. He was subsequently sent to a rehab facility for further care and had been doing well up until 2-3 weeks ago when he exhibit movements to pull out his PEG tube and had been evaluated in the ER on two separate occasions to confirm the placement within the stomach; however, earlier this morning, he had the opportunity to inadvertently pulled out his PEG tube with attempts to replace it with a 20- Zimbabwean replacement PEG tube, 16-Zimbabwean Salinas catheter and 16-Zimbabwean replacement PEG tube all being unsuccessful to be placed into the gastric lumen. Per my attempt earlier rox, I was unable to get the 16-Zimbabwean PEG tube through primarily due to premature closing of the distal end of the stomal tract and we will therefore need a complete new PEG tube placed. Given the previous attempt at PEG tube placement endoscopically by GI service, I would recommend reevaluation by the General Surgery service for possible PEG tube placement. RECOMMENDATIONS: 1. We will consult General Surgery service for reevaluation of the patient and possible repeat procedure for PEG tube placement given the unsatisfactory anatomy for endoscopically placed PEG tube. 2. Would continue patient on n.p.o. status for now until PEG tube placement can be adequately replaced. We will continue to follow. Please call with any questions. RISSA
[2017-10-23] MEDS ORDERED: Ondansetron HCl/PF 4 MG/2 ML Vial IVP PRN (03:44)
[2017-10-23] MEDS ORDERED: Acetaminophen 650 MG Suppository PR PRN (03:44)
[2017-10-23] MEDS ORDERED: Senokot 8.6 MG TAB PO PRN (03:44)
[2017-10-23] MEDS ORDERED: Calcium Carbonate 500 MG ChewTAB PO PRN (03:44)
--- NOTE | 2017-10-23 04:07 | HP ---
DATE OF ADMISSION: 10/22/2017 The patient was seen and examined on 10/22/2017 CHIEF COMPLAINT AND REASON FOR ADMISSION: PEG tube malfunction. HISTORY OF PRESENT ILLNESS: The patient is a 62-year-old male with acute CVA 2 months ago, was broug ht in to the hospital with a pulled PEG tube. The PEG tube was placed at the time of stroke due to s wallowing difficulty. The PEG tube was placed by General Surgery. The patient apparently pulled the PEG tube around 4:00 p.m. during the home healthcare nurse visit. He currently lives at home with family. Not much information is available from the patient due to hi s baseline cognitive status. No family at the bedside. PAST MEDICAL HISTORY: 1. 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 2. Hypertension. 3. Dyslipidemia. PAST SURGICAL HISTORY: PEG tube placement by General Surgery. He failed endoscopic PEG tube placeme nt. ALLERGIES: No known drug allergies. CURRENT HOME MEDICATIONS: To be verified. The patient was discharged home on aspirin, Plavix, lisin opril, lorazepam, and amlodipine. SOCIAL HISTORY: The patient currently lives at home with home health care. Has good family support. No alcohol, tobacco or drug use. FAMILY HISTORY: Negative for heart disease per previous record. REVIEW OF SYSTEMS: Cannot be obtained from the patient due to current cognitive status. PHYSICAL EXAMINATION: VITAL SIGNS: Temperature 98, respirations 18, pulse rate of 77, blood pressure of 124/83 with O2 sat uration of 100% on room air. GENERAL: A 62-year-old male, in no apparent distress. HEENT: Head atraumatic, normocephalic. Sclerae are anicteric. Dry mucous membranes. No oral lesio n. NECK: Supple, no JVD appreciated. No carotid bruit. LUNGS: Clear to auscultation bilaterally with diminished air entry at bases. No rhonchi or wheezing . HEART: S1, S2 present. Regular rate and rhythm. No murmur, rubs, or gallops appreciated. ABDOMEN: Soft, bowel sounds present. No erythema or swelling around the PEG tube site. EXTREMITIES: No edema or calf tenderness. NEUROLOGIC AND PSYCHIATRIC: Could not be done due to current cognitive status. SKIN: Warm and dry. LYMPH NODES: No palpable lymph nodes in the neck. PERIPHERAL VASCULAR: Radial pulses palpable bilaterally. MUSCULOSKELETAL: No joint swelling or tenderness. LABORATORY AND X-RAY FINDINGS: 1. CBC earlier this month showed WBC 10.3 with hemoglobin 15.8. 2. Chemistry earlier this month showed BUN 21, creatinine 1.06 with sodium 140, potassium 4.4. 3. Abdominal x-ray last week by my review showed PEG tube located within the stomach. IMPRESSION: 1. PEG tube malfunction. 2. Recent cerebrovascular accident with residual left-sided weakness and swallowing difficulty. 3. Hypertension. 4. Chronic kidney disease, stage 2. 5. Dyslipidemia. PLAN: The patient will be monitored on the medical floor as observation. GI will be consulted. We will continue IV fluids. We will resume home medications once PEG tube placed. We will add p.r.n. a ntihypertensives. Plan of care was discussed with the patient. We will discuss the plan of care with the family when t hey arrive.
[2017-10-23] MEDS: Sodium Chloride 0.9% 1,000 ML IV SCH ×2 (04:45→13:56)
[2017-10-23] MEDS: Famotidine/PF 20 mg/2ml Vial SLOW IVP SCH ×2 (08:51→20:53)
[2017-10-23] MEDS ORDERED: PROPOFOL 200 MG/20 ML VIAL ONE (11:55)
[2017-10-23] MEDS ORDERED: Lidocaine 1% PF 5 ML VIAL ONE (11:55)
[2017-10-23 12:36] LABS: #Basophils 0.1 thou/uL (0.0-0.2); #Eosinphils 0.2 thou/uL (0.0-0.7); #Lymphocytes 2.3 thou/uL (1.20-3.40); #Monocytes 0.8 thou/uL (0.11-0.59); #Neutrophils 4.9 thou/uL (1.40-6.50); %Basophils 0.7 % (0.0-1.0); %Eosinophils 2.5 % (0.0-10.0); %Lymphocytes 28.1 % (21.0-51.0); %Monocytes 9.7 % (0.0-10.0); %Neutrophils 59.1 % (42.0-75.0); Hemoglobin 14.5 g/dL (14.0-18.0); Mean Corpuscular Hemoglobin 30.1 pg (27.0-31.0); Mean Corpuscular Volume 88.3 fl (80.0-94.0); Mean Platelet Volume 7.5 fL (7.4-10.4); Platelet Count 352 thou/uL (130-400); RBC Distribution Width 12.4 % (11.5-14.5); Red Blood Cell (RBC) Count 4.83 mill/uL (4.70-6.10); White Blood Cell (WBC) Count 8.3 thou/uL (4.8-10.8)
[2017-10-23 12:51] LABS: ALT (SGPT) 49 U/L (8-55); AST (SGOT) 28 U/L (5-34); Albumin 3.8 g/dL (3.4-4.8); Alkaline Phosphatase 105 U/L (40-150); Anion Gap 10 mmol/L (10-20); BUN (Urea Nitrogen) 15 mg/dL (8.4-25.7); Calc. Creatinine Clearance 71 mL/min (70-130); Calcium 9.3 mg/dL (7.8-10.44); Carbon Dioxide 25 mmol/L (23-31); Chloride 110 mmol/L (98-107); Estimated GFR-MDRD Greater than 90; Globulin 3.3 g/dL (2.4-3.5); Glucose 93 mg/dL (80-115); Potassium 4.3 mmol/L (3.5-5.1); Protein, Total 7.1 g/dL (5.8-8.1); Sodium 141 mmol/L (136-145)
[2017-10-23 13:47] VITALS: BMI 21.4
--- NOTE | 2017-10-23 16:48 | CON ---
DATE OF CONSULTATION: 10/23/2017 CHIEF COMPLAINT: His PEG was removed and was not replaced in time. HISTORY OF PRESENT ILLNESS: This is a 62-year-old male who Dr. Caldwell placed PEG 2 months ago. He lujan d CVA and some dysphagia associated with that. He is aphasic, has failed swallow studies, has left-s ided paralysis. He has pulled these PEGs out multiple times. He has been hemodynamically stable, no t complaining of any pain. PAST MEDICAL HISTORY: Includes CVA, hypertension and dyslipidemia. PAST SURGICAL HISTORY: On 07/31/2017, PEG tube placement by Dr. Caldwell. MEDICINES: See list. ALLERGIES: No known drug allergies. SOCIAL HISTORY: Lives at the skilled nursing. REVIEW OF SYSTEMS: Ten system review of systems is unable to obtain secondary to his cognitive state . PHYSICAL EXAMINATION: VITAL SIGNS: Blood pressure 120/86, pulse 78. He is afebrile. CHEST: Bilateral coarse breath sounds. HEART: Regular rate and rhythm. ABDOMEN: Soft and nontender. The PEG site has a small bandage over it. EXTREMITIES: No ischemia or edema to extremities. LABORATORY DATA: White blood cell count is 8, hemoglobin 14, platelet count is 352. Creatinine 1.01 . ASSESSMENT: Protein calorie malnutrition, dysphagia secondary to cerebrovascular accident, need for replacement of PEG tube. PLAN: We will attempt this endoscopically later on today.?
[2017-10-23] MEDS ORDERED: CEFAZOLIN/Water 2 GM/20 ML SYRINGE ONE (18:14)
--- NOTE | 2017-10-23 18:49 | PRG ---
DATE OF SERVICE: 10/23/2017 REASON FOR CONSULTATION: Malfunctioning PEG tube. SUBJECTIVE: The patient was not in his room and available for evaluation at the time of evaluation. Per chart review today, there were no acute events or problems overnight. He was subsequently evalu ated by General Surgery Service with plans to take the patient to the OR today for surgically placed PEG tube. OBJECTIVE: VITAL SIGNS: Temperature 97.6, pulse 92, blood pressure 145/90, respiratory rate 18, saturating 100% on room air. Physical exam not available to be performed due to the patient down for procedure. LABORATORY DATA: CBC with a white blood cell count of 8.3, hemoglobin 14.5, hematocrit 42.7, platele t count 352. Chemistry with a sodium of 141, potassium 4.3, chloride 110, carbon dioxide 25, BUN 15, creatinine 1.01, glucose 93, AST 28, ALT 49, alkaline phosphatase 105, and total bilirubin 1. ASSESSMENT AND PLAN: The patient is a 62-year-old male with past medical history of hypertension, pr ior cerebrovascular accident and dysphagia requiring placement of PEG tube, presenting with inadverte nt removal of the PEG tube. PEG tube malfunction. 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 As such, General S urgery was re-consulted because they initially placed the PEG tube on 07/31/2017 for evaluation with the patient on schedule to go to the OR for repeat PEG tube placement. RECOMMENDATIONS: 1. Defer to General Surgery service for replacement of the PEG tube. 2. Tube feedings per dietitian protocol. We will sign off at this time. Please call with any questions.
[2017-10-23] MEDS ORDERED: Lorazepam 0.5 MG TAB PER TUBE PRN (22:05)
--- NOTE | 2017-10-23 23:17 | PDOC.PN ---
- Subjective Encounter Start Date: 10/23/17 Encounter Start Time: 11:00 -: non-verbal Subjective: f/u for PEG self removal -: nsg notes rev, antoine ovn - Objective Resuscitation Status: Resuscitation Status FULL:Full Resuscitation Vital Signs & Weight: Vital Signs (12 hours) Temp Pulse Resp BP Pulse Ox 10/23/17 20:00 97.7 F 79 18 133/91 H 100 10/23/17 16:00 97.6 F 92 18 145/90 H 100 Weight Admit Weight 144 lb 12.8 oz Weight 144 lb 12.8 oz I&O: 10/22/17 10/23/17 10/24/17 06:59 06:59 06:59 Intake Total 176 Balance 176 Result Diagrams: 10/23/17 12:22 10/23/17 12:22 Phys Exam - Physical Examination Constitutional: NAD HEENT: moist MMs, sclera anicteric Respiratory: no wheezing, no rales, no rhonchi, clear to auscultation bilateral limited anterior exam Cardiovascular: RRR, no significant murmur, no rub Gastrointestinal: soft, non-tender, positive bowel sounds Musculoskeletal: no edema, pulses present Neurological: moves all 4 limbs Dx/Plan - Plan * PEG self removed by pt * appreciate GI c/s * appreciate surg c/s * check CBC, BMP, continue IVF pending PEG replacement hx CVA with resultant dysphagia, stable diet: NPO activity: as evangelina dvt ppx Review of Systems - Medications/Allergies Allergies/Adverse Reactions: Allergies Allergy/AdvReac Type Severity Reaction Status Date / Time No Known Drug Allergies Allergy Verified 03/13/16 20:16 Medications: Current Medications Acetaminophen (Tylenol) 650 mg [place] Q4H PRN PRN Reason: Headache/Fever or Pain Calcium Carbonate (Tums) 1,000 mg PO Q4H PRN PRN Reason: Heartburn or Indigestion Famotidine (Pepcid) 20 mg SLOW IVP Q12HR [facility] Last Admin: 10/23/17 20:53 Dose: 20 mg Sodium Chloride (Normal Saline 0.9%) 1,000 mls @ 75 mls/hr IV .[id number] [facility] Last Admin: 10/23/17 13:56 Dose: 1,000 mls Lorazepam (Ativan) 0.5 mg PER TUBE TID PRN PRN Reason: Anxiety/Agitation Ondansetron HCl (Zofran) 4 mg IVP Q6H PRN PRN Reason: Nausea/Vomiting Senna (Senokot) 2 tab PO HSPRN PRN PRN Reason: Constipation Sodium Chloride (Flush - Normal Saline) 10 ml IVF Q12HR [facility] Last Admin: 10/23/17 20:54 Dose: 10 ml Sodium Chloride (Flush - Normal Saline) 10 ml IVF PRN PRN PRN Reason: Saline Flush
[2017-10-24] MEDS: Sodium Chloride 0.9% 1,000 ML IV SCH (05:45)
[2017-10-24 07:23] LABS: #Eosinphils 0.1 thou/uL (0.0-0.7); #Lymphocytes 3.2 thou/uL (1.20-3.40); #Monocytes 0.9 thou/uL (0.11-0.59); #Neutrophils 7.8 thou/uL (1.40-6.50); %Basophils 0.4 % (0.0-1.0); %Eosinophils 1.1 % (0.0-10.0); %Lymphocytes 26.3 % (21.0-51.0); %Monocytes 7.7 % (0.0-10.0); %Neutrophils 64.5 % (42.0-75.0); Hemoglobin 14.7 g/dL (14.0-18.0); Mean Corpuscular HGB CONC 34.6 g/dL (32.0-36.0); Mean Corpuscular Hemoglobin 30.1 pg (27.0-31.0); Mean Corpuscular Volume 86.8 fl (80.0-94.0); Mean Platelet Volume 7.5 fL (7.4-10.4); Platelet Count 338 thou/uL (130-400); RBC Distribution Width 12.5 % (11.5-14.5); Red Blood Cell (RBC) Count 4.89 mill/uL (4.70-6.10)
[2017-10-24 07:24] LABS: Anion Gap 11 mmol/L (10-20); BUN (Urea Nitrogen) 12 mg/dL (8.4-25.7); Calc. Creatinine Clearance 73 mL/min (70-130); Calcium 9.5 mg/dL (7.8-10.44); Carbon Dioxide 21 mmol/L (23-31); Chloride 110 mmol/L (98-107); Estimated GFR-MDRD Greater than 90; Glucose 84 mg/dL (80-115); Potassium 4.4 mmol/L (3.5-5.1); Sodium 138 mmol/L (136-145)
[2017-10-24] MEDS: Famotidine/PF 20 mg/2ml Vial SLOW IVP SCH (08:25)
--- NOTE | 2017-10-24 11:06 | OP ---
DATE OF PROCEDURE: 10/23/2017 PREOPERATIVE DIAGNOSES: Protein-calorie malnutrition, the patient pulled his PEG out. POSTOPERATIVE DIAGNOSES: Protein-calorie malnutrition, the patient pulled his PEG out. PROCEDURE PERFORMED: EGD with percutaneous endoscopic gastrostomy tube placement. SURGEON: Macho Vivas M.D. ANESTHESIA: TIVA and local. ESTIMATED BLOOD LOSS: Minimal. COMPLICATIONS: None. SPECIMEN: None. FINDINGS: The PEG is seen in the stomach in good position. PROCEDURE IN DETAIL: The patient went to the GI lab and after sedation, EGD scope was passed into th e esophagus, stomach to the level of duodenum without obstruction or pathology, pulled back into the proximal stomach. Pushing left subcostal, you can see this reproduced on the inside of the stomach. There was good transillumination of light just medial to the previous PEG tube site. A skin wheal w as raised and once a mirror incision was made, needle was passed into the stomach. Wire was passed i nto the stomach. Snare from the scope was used to snare the wire and bring it out through the mouth, connected to the PEG. The PEG was then pulled from the oropharynx, esophagus out the stomach. Held to the skin using a closed bumper. The tubing was cut short. The Marilee tree adaptor was placed . Antibiotic ointment placed at the exit site. Abdominal binder was placed.
--- NOTE | 2017-10-24 11:10 | PRG ---
DATE OF SERVICE: 10/24/2017 SUBJECTIVE: Mr. Hudson had his G-tube replaced yesterday. This morning, he has nothing. He has no restraints on and his right hand is opened and sitting right on top of the abdominal binder. He is a febrile. Vital signs are stable. ASSESSMENT: Postoperative day #1, replacement of PEG tube. PLAN: This patient is certainly very high risk for pulling this G-tube out again. He is going to ne ed to have some sort of strength on that right arm. Otherwise, he is going to pull it out. If he pu lls it out, he has got a perforation and will develop peritonitis within the first 3 weeks after PEG replacement. I highly encourage restraints, but we will leave that up to the primary team. We will follow p.r.n.
--- NOTE | 2017-10-24 12:23 | PDOC.PN ---
- Subjective Encounter Start Date: 10/24/17 Encounter Start Time: 12:22 Mr. Hudson was seen today in follow-up of recent removal of G- Tube. He will look at you, but does not follow commands. - Objective Resuscitation Status: Resuscitation Status FULL:Full Resuscitation MAR Reviewed: Yes Vital Signs & Weight: Vital Signs (12 hours) Temp Pulse Resp BP BP Pulse Ox 10/24/17 11:58 98.1 F 87 16 130/91 H 100 10/24/17 08:00 98.3 F 95 16 141/96 H 100 10/24/17 07:25 98.3 F 95 16 141/96 H 100 10/24/17 04:20 98.7 F 99 20 144/90 H 99 10/24/17 01:00 98.9 F 98 22 H 126/84 100 Weight Admit Weight 144 lb 12.8 oz Weight 144 lb 12.8 oz I&O: 10/23/17 10/24/17 10/25/17 06:59 06:59 06:59 Intake Total 926 Balance 926 Result Diagrams: 10/24/17 06:53 10/24/17 06:53 Phys Exam - Physical Examination HEENT: PERRLA Respiratory: no wheezing, no rales, no rhonchi, clear to auscultation bilateral Cardiovascular: RRR, no significant murmur, no rub Gastrointestinal: soft, non-tender, no distention, positive bowel sounds Musculoskeletal: no edema Dx/Plan (1) CVA (cerebral vascular accident) Code(s): I63.9 - CEREBRAL INFARCTION, UNSPECIFIED Status: Acute Qualifiers: Precerebral and cerebral artery: middle cerebral artery Laterality of affected vessel: right Comment: L hemiparesis, motor and sensory deficits, Pt has severe Aphasia and Not following commands, severe Aortic Stenosis. MRI confirmed Right MCA, continue ASA and Plavix, Lipitor (2) Dysphagia as late effect of cerebrovascular accident (CVA) Code(s): I69.391 - DYSPHAGIA FOLLOWING CEREBRAL INFARCTION Status: Acute Comment: s/p PEG placement with tolerating Jevity 1.5, monitor for residuals (3) HTN (hypertension) Code(s): I10 - ESSENTIAL (PRIMARY) HYPERTENSION Status: Chronic Qualifiers: Hypertension type: essential hypertension Qualified Code(s): I10 - Essential (primary) hypertension Comment: Continue current antihypertensives (4) Hemiplegia affecting right dominant side Code(s): G81.91 - HEMIPLEGIA, UNSPECIFIED AFFECTING RIGHT DOMINANT SIDE Status : Chronic - Plan * Recent G- tube replacement- he is clinically stable, and can be discharged home.
--- NOTE | 2017-10-24 12:58 | DIS ---
DATE OF ADMISSION: 10/22/2017 DATE OF DISCHARGE: 10/24/2017 DISCHARGE DISPOSITION: Home. PRIMARY DISCHARGE DIAGNOSES: 1. Dislodged G-tube. 2. History of cerebrovascular accident. 3. Hypertension. 4. Dyslipidemia. DISCHARGE MEDICATIONS: Include Ativan 0.5 mg t.i.d. as needed, lisinopril 40 mg daily, Plavix 75 mg per tube daily, Lipitor 80 mg at bedtime, aspirin 81 mg per tube daily and amlodipine 10 mg daily. PROCEDURES DONE DURING ADMISSION: The patient had the replacement of G-tube. CODE STATUS: FULL CODE. ALLERGIES: No known drug allergies. HOSPITAL COURSE: Mr. Hudson is a pleasant 62-year-old gentleman who has a history of cerebrovascular accident and is aphasic as a result. He also appears to have some significant cognitive deficits as well. He was admitted after he pulled out his gastrostomy tube. He has done this on multiple occas ions in the past. He was admitted and seen by Gastroenterology as well as General Surgery and the ga strostomy tube was replaced. He had an uneventful postoperative course and is being discharged back to home.
[2017-10-24 16:46] VITALS: BP 133/93; TEMP 98.5
== END 2017-10-24 17:46 | disposition home or self-care (01) ==
LOC: ERS 16:19 → T4-A 23:01
PROVIDERS: ADMIT Emergency Medicine; ATTEND Emergency Medicine
PROC: 0DH63UZ Insertion of Feeding Device into Stomach, Percutaneous Approach (ICD-10-PCS; principal; 2017-10-23)
DX: K94.23 Gastrostomy malfunction (principal); E46 Unspecified protein-calorie malnutrition; E78.5 Hyperlipidemia, unspecified; I12.9 Hypertensive chronic kidney disease with stage 1 through stage 4 chronic kidney disease, or unspecified chronic kidney disease; N18.2 Chronic kidney disease, stage 2 (mild); I69.391 Dysphagia following cerebral infarction; G81.91 Hemiplegia, unspecified affecting right dominant side; Z79.02 Long term (current) use of antithrombotics/antiplatelets; Z79.899 Other long term (current) drug therapy
CPT/HCPCS: 36415; 43760; 80048; 80053; 85025; 96361; 96372; 96374; 96375; A4216; B4087; G0378; J2001; J2060; J2704; S0028

== ENCOUNTER 2018-01-16 18:27 | Emergency (ER) | payer OTHER ==
--- NOTE | 2018-01-16 19:52 | RAD ---
FRONTAL VIEW ABDOMEN KUB SERIES 01/16/18 INDICATION: PEG tube confirmation. FINDINGS: There is enteric contrast localizing to the left upper abdomen within the expected confines of parti ally contrast opacified gastric lumen. There is air filled mildly prominent bowel, nonspecific. IMPRESSION: Enteric contrast does reside within the expected confines of partially contrast opacified gastric lum en. As necessary, serial radiographic followup may be obtained to confirm expected passage of contrast. POS: RICHARD
== END 2018-01-16 20:30 | disposition home or self-care (01) ==
LOC: ERS 18:27
DX: Z43.1 Encounter for attention to gastrostomy (principal); I10 Essential (primary) hypertension; Z86.73 Personal history of transient ischemic attack (TIA), and cerebral infarction without residual deficits
CPT/HCPCS: 43760; 74018; B4087

== ENCOUNTER 2018-01-16 22:33 | Inpatient (IN) | payer OTHER ==
[2018-01-17 03:04] LABS: Mean Corpuscular HGB CONC 36.2 g/dL (32.0-36.0); Mean Corpuscular Hemoglobin 31.1 pg (27.0-31.0); Mean Corpuscular Volume 85.8 fL (78.0-98.0); Platelet Count 299 thou/uL (130-400); RBC Distribution Width 12.4 % (11.5-14.5); Red Blood Cell (RBC) Count 5.15 mill/uL (4.70-6.10); White Blood Cell (WBC) Count 20.1 thou/uL (4.8-10.8)
[2018-01-17 03:17] LABS: ALT (SGPT) 62 U/L (8-55); AST (SGOT) 29 U/L (5-34); Albumin 4.3 g/dL (3.4-4.8); Alkaline Phosphatase 98 U/L (40-150); Anion Gap 15 mmol/L (10-20); BUN (Urea Nitrogen) 15 mg/dL (8.4-25.7); Bilirubin, Total 1.3 mg/dL (0.2-1.2); Calc. Creatinine Clearance 0 mL/min (70-130); Calcium 10.1 mg/dL (7.8-10.44); Carbon Dioxide 23 mmol/L (23-31); Chloride 105 mmol/L (98-107); Estimated GFR-MDRD 87; Globulin 3.5 g/dL (2.4-3.5); Glucose 135 mg/dL (80-115); Lipase 19 U/L (8-78); Potassium 4.4 mmol/L (3.5-5.1); Protein, Total 7.8 g/dL (5.8-8.1); Sodium 139 mmol/L (136-145)
[2018-01-17 03:19] LABS: Band 26 % (5-11); Lymphocytes 6 % (21-51); MDiff Complete? YES; Monocytes 6 % (0-10); Neutrophil 62 % (42-75)
[2018-01-17] MEDS ORDERED: Piperacillin/Tazobactam 4.5 GM VIAL ONE (05:01)
[2018-01-17] MEDS ORDERED: Ondansetron HCl/PF 4 MG/2 ML Vial IVP PRN ×3 (06:34→14:32)
[2018-01-17] MEDS ORDERED: Acetaminophen 1,000 MG in Premix Bag 1 BAG IVPB PRN ×2 (06:35→14:32)
[2018-01-17] MEDS ORDERED: D5 1/2 NS w/20 mEq KCL 1,000 ML IV SCH (06:45)
--- NOTE | 2018-01-17 07:06 | HP ---
CHIEF COMPLAINT: G-tube is out. HISTORY OF PRESENT ILLNESS: This is a 62-year-old male with a history of a CVA who presents with dys phagia, inability to swallow, previously had a PEG tube placed. I had previously had to replace that PEG when he pulled it out. Now presents with having pulled it out again. It was replaced and contr ast study was done which showed it to be in the stomach; however, when his caregivers tried to flush it again, he had severe pain. CT scan shows it to not be in the stomach, but it is in the abdominal cavity. There is a small amount of free air around it, but no significant free fluid or diffuse free air. He acts like he is sore in the area of the tube when you push; however, he is lying in bed com fortably right now. PAST MEDICAL HISTORY: CVA, hypertension, and dyslipidemia. PAST SURGICAL HISTORY: Multiple PEG tubes placed. ALLERGIES: No known drug allergies. MEDICINES: At home include aspirin, Plavix, lisinopril, lorazepam, amlodipine. SOCIAL HISTORY: Lives at home with good family support. REVIEW OF SYSTEMS: Unable to obtain secondary to his baseline cognitive status. PHYSICAL EXAMINATION: VITAL SIGNS: Blood pressure is 115/67, pulse 104, respirations 22. He is afebrile. HEENT: Sclerae are anicteric. Oropharynx clear. NECK: No lymphadenopathy. CHEST: Clear. HEART: Regular rhythm. ABDOMEN: Soft. He is very tender in the area of the tube. No diffuse peritonitis or guarding. EXTREMITIES: No ischemia or edema to extremities. LABORATORY AND X-RAY FINDINGS: White blood cell count is 20, hemoglobin is 16, platelet count is 299 . He has 26 bands. Creatinine 1.05, potassium 4.4. ASSESSMENT: Malposition of a feeding G-tube (PEG) with history of multiple pulls. PLAN: Open G-tube. Risks, benefits discussed with Echo, his next of kin. She understands risks a nd benefits of open G-tube in this situation. Plan to do this later on this morning.
--- NOTE | 2018-01-17 08:51 | CT ---
PRELIMINARY REPORT/[facility]/EMERGENTY AFTER-HOURS PROCEDURE CT Abdomen and Pelvis Without Intravenous Contrast EXAM DATE/TIME: Exam ordered 01/17/2018 2:51 AM CLINICAL HISTORY: 62 years old, male; Device placement; Gi device; Peg tube; Patient HX: Patient presents for evaluatio n of g tube, "not working TECHNIQUE: Axial computed tomography images of the abdomen and pelvis without intravenous contrast. All CT scans at this facility use at least one of these dose optimization techniques: automated exposure control; mA and/or kV adjustment per patient size (includes targeted exams where dose is matched to clinical indication); or iterative reconstruction. Coronal reformatted images were created and reviewed. COMPARISON: No relevant prior studies available. FINDINGS: Lung bases: Mild centrilobular emphysematous changes are present. ABDOMEN: Liver: The liver is within normal limits for this noncontrast study. There is small amount of fluid i n the RIGHT abdomen inferior to the liver. Gallbladder and bile ducts: The gallbladder is normal. There is no evidence of biliary ductal dilatio n. No calcified stones. Pancreas: The pancreas appears normal. No ductal dilation. Spleen: The spleen is normal. Adrenals: The adrenal glands are normal. Kidneys and ureters: The kidneys appear normal. Contrast is seen within the bilateral ureters and uri nary bladder. No obstructing stones. No hydronephrosis. Stomach and bowel: No obstruction. No mucosal thickening. PELVIS: Appendix: No findings to suggest acute appendicitis. Bladder: See above. Reproductive: The prostate gland and seminal vesicles are normal. ABDOMEN and PELVIS: Intraperitoneal space: See below. Bones/joints: No acute fracture. No dislocation. Soft tissues: Normal. Vasculature: Normal. No abdominal aortic aneurysm. Lymph nodes: Normal. No enlarged lymph nodes. Tubes, lines and devices: Gastrostomy tube balloon is seen immediately outside the stomach within the epigastric region with diffuse tiny foci of free air seen within the peritoneum. IMPRESSION: Gastrostomy tube balloon is seen immediately outside the stomach within the epigastric region with di ffuse tiny foci of free air seen within the peritoneum. Findings were discussed with BRANDON LUCAS at 01/17/2018 4:42 AM CDT. After completing this convers ation with Dr. Lucas, small amount of fluid identified inferior to the liver. Thank you for allowing us to participate in the care of your patient. Dictated and Authenticated by: Artis Key MD 01/17/2018 4:45 AM Central Time ([place] & [place]) FINAL REPORT CT ABDOMEN AND PELVIS WITHOUT CONTRAST: HISTORY: Abdominal pain. T-tube not functioning. COMPARISON: Abdomen radiograph prior day. FINDINGS: Some atelectasis in the right lung base. Small pneumatoceles in the lower lobes. The gastrostomy tube is outside the lumen of the stomach. Moderate free intraperitoneal gas. There is contrast in the renal collecting systems indicating peritoneal absorption. No contrast within the lumen of the bowel. Infrarenal abdominal aortic aneurysm measuring up to 3.2 cm. IMPRESSION: Findings and impression are concordant with the preliminary report. POS: [facility]
[2018-01-17] MEDS ORDERED: Prevnar 13-Val Conj/PF 0.5 ML SYRINGE IM ONE (09:00)
[2018-01-17] MEDS ORDERED: Fentanyl 100 MCG/2 ML VIAL ONE ×2 (12:45→14:22)
[2018-01-17] MEDS ORDERED: Midazolam HCl 2 mg/2 ml Vial ONE (12:45)
[2018-01-17] MEDS ORDERED: CEFAZOLIN/Water 2 GM/20 ML SYRINGE ONE (12:47)
[2018-01-17] MEDS ORDERED: Bupivacaine/Epinephrine 0.25% 30 ML VIAL ONE (13:05)
--- NOTE | 2018-01-17 14:06 | OP ---
DATE OF PROCEDURE: 01/17/2018 PREOPERATIVE DIAGNOSES: Peritonitis, malposition of PEG tube balloon. POSTOPERATIVE DIAGNOSES: Peritonitis, malposition of PEG tube balloon. PROCEDURE: Exploratory laparotomy, abdominal washout, replacement of G-tube, gastrorrhaphy. SURGEON: Dr. Macho Vivas ANESTHESIA: General. ESTIMATED BLOOD LOSS: Minimal. COMPLICATIONS: None. SPECIMEN: None. FINDINGS: Minimal peritonitis. The balloon is in the wall of the stomach. No external perforation except for the open G-tube hole. TECHNIQUE: The patient was taken to the operating room, placed supine on the table. After general a nesthetic was obtained, the abdomen is prepped and draped in a sterile fashion. Incision was made in the midline, cautery used to dissect down into the abdominal cavity. There was a bruised appearing area in the medial wall of the stomach. The G-tube site was taken down. The tube is removed using c autery. It appeared that the balloon is in the wall of the stomach along the lesser curve. It is re moved. The area of thinning of this wall was oversewn using running silk suture in the serosa, 22 Ma lecot catheter brought into the sterile field, placed through a second site in the left upper quadran t. A new tunnel was made through the muscle, Malecot was placed into the stomach and its sewn in jose ce using a pursestring of silk suture. The stomach here is pulled up against the posterior abdominal wall and 2-0 silk sutures used to affix the serosa of the stomach circumferentially. The abdomen is irrigated copiously using sterile solution. There was no purulence, no evidence of perforation. Mi dline fascia closed using #1 PDS from the top and the bottom and tied in the middle. Subcutaneous ti ssues are irrigated and closed using 3-0 Vicryl, 4-0 Monocryl, and Dermabond. The patient was en rou te to recovery in stable condition. All instrument counts, needle counts, lap counts were correct.
[2018-01-17] MEDS ORDERED: Promethazine HCl 25 MG/ML VIAL IM PRN ×2 (14:12→14:32)
[2018-01-17] MEDS ORDERED: Promethazine HCl 25 MG/ML VIAL SLOW IVP PRN (14:12)
[2018-01-17] MEDS ORDERED: Dextrose 50% Abboject 50 ML SYRINGE SLOW IVP PRN (14:32)
[2018-01-17] MEDS ORDERED: Dextrose 5% in Water 1,000 ML IV PRN (14:32)
[2018-01-17] MEDS ORDERED: hydrALAZINE 20 MG/ML VIAL SLOW IVP PRN (14:32)
[2018-01-17] MEDS ORDERED: Lorazepam 0.5 MG TAB PO PRN (14:32)
[2018-01-17] MEDS ORDERED: Succinylcholine Chloride 20 MG/ML 10 ml SYRINGE FS ONE (14:45)
[2018-01-17] MEDS ORDERED: Lidocaine 1% PF 5 ML VIAL ONE (14:45)
[2018-01-17] MEDS ORDERED: Glycopyrrolate 0.2 MG/ML 5 ML SYRINGE ONE (14:45)
[2018-01-17] MEDS: D5 1/2 NS w/20 mEq KCL 1,000 ML IV SCH ×2 (15:46→21:24)
[2018-01-17] MEDS: Piperacillin/Tazobactam 3.375 GM in Sodium Chloride 0.9% 100 ML IVPB SCH ×2 (16:25→21:19)
[2018-01-17] MEDS: Famotidine/PF 20 mg/2ml Vial SLOW IVP SCH (21:19)
[2018-01-17] MEDS: Famotidine 20 MG TAB PO SCH (21:20)
[2018-01-18] MEDS: Piperacillin/Tazobactam 3.375 GM in Sodium Chloride 0.9% 100 ML IVPB SCH ×4 (03:54→22:09)
[2018-01-18 05:01] LABS: Band 3 % (5-11); Hemoglobin 14.1 g/dL (14.0-18.0); Lymphocytes 19 % (21-51); MDiff Complete? YES; Mean Corpuscular HGB CONC 35.2 g/dL (32.0-36.0); Mean Corpuscular Hemoglobin 30.5 pg (27.0-31.0); Mean Corpuscular Volume 86.7 fL (78.0-98.0); Mean Platelet Volume 8.3 fL (7.4-10.4); Monocytes 7 % (0-10); Neutrophil 71 % (42-75); Platelet Count 258 thou/uL (130-400); RBC Distribution Width 12.4 % (11.5-14.5); Red Blood Cell (RBC) Count 4.61 mill/uL (4.70-6.10); White Blood Cell (WBC) Count 15.9 thou/uL (4.8-10.8)
[2018-01-18 05:04] LABS: Anion Gap 15 mmol/L (10-20); BUN (Urea Nitrogen) 12 mg/dL (8.4-25.7); Calc. Creatinine Clearance 64 mL/min (70-130); Calcium 9.6 mg/dL (7.8-10.44); Carbon Dioxide 20 mmol/L (23-31); Chloride 107 mmol/L (98-107); Estimated GFR-MDRD 86; Glucose 149 mg/dL (80-115); Potassium 4.1 mmol/L (3.5-5.1); Sodium 138 mmol/L (136-145)
[2018-01-18] MEDS: Famotidine 20 MG TAB PO SCH ×2 (07:22→22:09)
[2018-01-18] MEDS: D5 1/2 NS w/20 mEq KCL 1,000 ML IV SCH ×3 (08:44→22:10)
[2018-01-18] MEDS: Famotidine/PF 20 mg/2ml Vial SLOW IVP SCH ×2 (08:45→22:09)
[2018-01-18] MEDS: Amlodipine 10 MG TAB PO SCH (08:58)
[2018-01-18] MEDS: Lisinopril 20 MG TAB PO SCH (09:00)
--- NOTE | 2018-01-18 14:57 | PDOC.PN ---
- Subjective Encounter Start Date: 01/18/18 Encounter Start Time: 14:55 Pt seen for management of medical comorbidities, including hypertension. Pt is nonverbal, unable to complete ROS. - Objective Vital Signs & Weight: Vital Signs (12 hours) Temp Pulse Resp BP Pulse Ox 01/18/18 11:47 99.2 F 102 H 18 106/73 01/18/18 08:58 106 H 01/18/18 08:00 98.3 F 106 H 18 01/18/18 07:40 98.3 F 106 H 18 136/90 100 Weight Admit Weight 135 lb Weight 135 lb 8 oz Result Diagrams: 01/18/18 03:35 01/18/18 03:35 Additional Labs: Accuchecks 01/18/18 01/17/18 11:45 17:07 POC Glucose 132 H 160 H Phys Exam - Physical Examination Constitutional: NAD HEENT: moist MMs Neck: supple Respiratory: clear to auscultation bilateral Cardiovascular: RRR abdominal binder Neurological: moves all 4 limbs R weakness Psychiatric: normal affect Dx/Plan (1) HTN (hypertension) Code(s): I10 - ESSENTIAL (PRIMARY) HYPERTENSION Status: Chronic Qualifiers: Hypertension type: essential hypertension Qualified Code(s): I10 - Essential (primary) hypertension Comment: controlled, continue current antihypertensives (2) Dyslipidemia Code(s): E78.5 - HYPERLIPIDEMIA, UNSPECIFIED Status: Chronic Comment: continue statin (3) H/O: CVA (cerebrovascular accident) Code(s): Z86.73 - PRSNL HX OF TIA (TIA), AND CEREB INFRC W/O RESID DEFICITS Status: Chronic Comment: stable - Plan * . Review of Systems - Medications/Allergies Allergies/Adverse Reactions: Allergies Allergy/AdvReac Type Severity Reaction Status Date / Time No Known Drug Allergies Allergy Verified 03/13/16 20:16 Medications: Current Medications Albuterol/Ipratropium (Duoneb) 3 ml NEB Q4H PRN PRN Reason: Wheezing Amlodipine Besylate (Norvasc) 10 mg PO DAILY [facility] Last Admin: 01/18/18 08:58 Dose: 10 mg Dextrose/Water (Dextrose 50%) 25 gm SLOW IVP PRN PRN PRN Reason: Hypoglycemia Famotidine (Pepcid) 20 mg PO Q12HR [facility] Last Admin: 01/18/18 07:22 Dose: Not Given Famotidine (Pepcid) 20 mg SLOW IVP Q12HR [facility] Last Admin: 01/18/18 08:45 Dose: 20 mg Glucagon (Glucagon) 1 mg IM PRN PRN PRN Reason: Hypoglycemia Hydralazine HCl (Apresoline) 10 mg SLOW IVP Q4H PRN PRN Reason: SBP > 170 or DBP > 100 Potassium Chloride/Dextrose/Sod Cl (D5 1/2 Ns W/20 Meq Kcl) 1,000 mls @ 110 mls /hr IV .Q9H6M [facility] Last Admin: 01/18/18 08:44 Dose: 1,000 mls Dextrose/Water (D5w) 1,000 mls @ 0 mls/hr IV .Q0M PRN PRN Reason: Hypoglycemia Piperacillin Sod/Tazobactam (Sod 3.375 gm/ Sodium Chloride) 100 mls @ 200 mls/ hr IVPB 0300,0900,1500,2100 [facility] Last Admin: 01/18/18 08:50 Dose: 100 mls Lisinopril (Zestril) 40 mg PO DAILY [facility] Last Admin: 01/18/18 09:00 Dose: 40 mg Lorazepam (Ativan) 0.5 mg PO TID PRN PRN Reason: Anxiety/Agitation Morphine Sulfate (Morphine) 2 mg SLOW IVP Q2H PRN PRN Reason: Moderate Pain (4-6) Last Admin: 01/18/18 08:46 Dose: 2 mg Morphine Sulfate (Morphine) 4 mg SLOW IVP Q2H PRN PRN Reason: Severe Pain (7-10) Ondansetron HCl (Zofran) 4 mg IVP Q6H PRN PRN Reason: Nausea/Vomiting Promethazine HCl (Phenergan) 12.5 mg IM Q4H PRN PRN Reason: Nausea/Vomiting Sodium Chloride (Flush - Normal Saline) 10 ml IVF PRN PRN PRN Reason: Saline Flush
[2018-01-18] MEDS: Morphine 4 MG/ML VIAL SLOW IVP PRN (20:10)
[2018-01-18] MEDS: Atorvastatin Calcium 40 MG TAB PO SCH (22:08)
[2018-01-19] MEDS: Piperacillin/Tazobactam 3.375 GM in Sodium Chloride 0.9% 100 ML IVPB SCH ×4 (03:38→22:42)
[2018-01-19] MEDS: Morphine 4 MG/ML VIAL SLOW IVP PRN ×2 (03:39→22:37)
[2018-01-19] MEDS: Lisinopril 20 MG TAB PO SCH (08:56)
[2018-01-19] MEDS: Amlodipine 10 MG TAB PO SCH (08:56)
--- NOTE | 2018-01-19 10:08 | PDOC.PN ---
- Subjective Encounter Start Date: 01/19/18 Encounter Start Time: 08:00 -: non-verbal Pt seen for followup re: hypertension. Pt is nonverbal, unable to complete ROS. - Objective MAR Reviewed: Yes Vital Signs & Weight: Vital Signs (12 hours) Temp Pulse Resp BP BP Pulse Ox 01/19/18 08:56 90 01/19/18 08:02 98.6 F 90 18 115/83 95 01/19/18 07:20 97.7 F 88 18 01/19/18 03:42 97.7 F 88 18 120/87 100 01/18/18 23:34 98.8 F 78 20 115/79 98 Weight Admit Weight 135 lb Weight 135 lb 8 oz I&O: 01/18/18 01/19/18 01/20/18 06:59 06:59 06:59 Intake Total 4300 Balance 4300 Result Diagrams: 01/18/18 03:35 01/18/18 03:35 Additional Labs: Accuchecks 01/19/18 01/18/18 01/18/18 05:25 19:22 16:44 POC Glucose 113 H 144 H 143 H 01/18/18 11:45 POC Glucose 132 H labs reviewed by me Phys Exam - Physical Examination Constitutional: NAD HEENT: moist MMs Neck: supple Respiratory: clear to auscultation bilateral Cardiovascular: RRR Gastrointestinal: soft G-tube R- sided weakness Psychiatric: normal affect Dx/Plan (1) HTN (hypertension) Code(s): I10 - ESSENTIAL (PRIMARY) HYPERTENSION Status: Chronic Qualifiers: Hypertension type: essential hypertension Qualified Code(s): I10 - Essential (primary) hypertension Comment: controlled and at goal (2) Dyslipidemia Code(s): E78.5 - HYPERLIPIDEMIA, UNSPECIFIED Status: Chronic Comment: on statin (3) H/O: CVA (cerebrovascular accident) Code(s): Z86.73 - PRSNL HX OF TIA (TIA), AND CEREB INFRC W/O RESID DEFICITS Status: Chronic Comment: stable - Plan continue antibiotics * . G-tube feeds to continue Pt is on IV Zosyn because of possible peritonitis. Review of Systems - Medications/Allergies Allergies/Adverse Reactions: Allergies Allergy/AdvReac Type Severity Reaction Status Date / Time No Known Drug Allergies Allergy Verified 03/13/16 20:16 Medications: Current Medications Albuterol/Ipratropium (Duoneb) 3 ml NEB Q4H PRN PRN Reason: Wheezing Amlodipine Besylate (Norvasc) 10 mg PO DAILY [facility] Last Admin: 01/19/18 08:56 Dose: 10 mg Atorvastatin Calcium (Lipitor) 80 mg PO HS [facility] Last Admin: 01/18/18 22:08 Dose: 80 mg Dextrose/Water (Dextrose 50%) 25 gm SLOW IVP PRN PRN PRN Reason: Hypoglycemia Famotidine (Pepcid) 20 mg PO Q12HR [facility] Last Admin: 01/18/18 22:09 Dose: 20 mg Famotidine (Pepcid) 20 mg SLOW IVP Q12HR [facility] Last Admin: 01/18/18 22:09 Dose: Not Given Glucagon (Glucagon) 1 mg IM PRN PRN PRN Reason: Hypoglycemia Hydralazine HCl (Apresoline) 10 mg SLOW IVP Q4H PRN PRN Reason: SBP > 170 or DBP > 100 Potassium Chloride/Dextrose/Sod Cl (D5 1/2 Ns W/20 Meq Kcl) 1,000 mls @ 110 mls /hr IV .Q9H6M [facility] Last Admin: 01/18/18 22:10 Dose: 1,000 mls Dextrose/Water (D5w) 1,000 mls @ 0 mls/hr IV .Q0M PRN PRN Reason: Hypoglycemia Piperacillin Sod/Tazobactam (Sod 3.375 gm/ Sodium Chloride) 100 mls @ 200 mls/ hr IVPB 0300,0900,1500,2100 [facility] Last Admin: 01/19/18 03:38 Dose: 100 mls Lisinopril (Zestril) 40 mg PO DAILY [facility] Last Admin: 01/19/18 08:56 Dose: 40 mg Lorazepam (Ativan) 0.5 mg PO TID PRN PRN Reason: Anxiety/Agitation Last Admin: 01/19/18 08:56 Dose: 0.5 mg Morphine Sulfate (Morphine) 2 mg SLOW IVP Q2H PRN PRN Reason: Moderate Pain (4-6) Last Admin: 01/19/18 08:58 Dose: 2 mg Morphine Sulfate (Morphine) 4 mg SLOW IVP Q2H PRN PRN Reason: Severe Pain (7-10) Last Admin: 01/19/18 03:39 Dose: 4 mg Ondansetron HCl (Zofran) 4 mg IVP Q6H PRN PRN Reason: Nausea/Vomiting Promethazine HCl (Phenergan) 12.5 mg IM Q4H PRN PRN Reason: Nausea/Vomiting Sodium Chloride (Flush - Normal Saline) 10 ml IVF PRN PRN PRN Reason: Saline Flush
[2018-01-19] MEDS: Famotidine/PF 20 mg/2ml Vial SLOW IVP SCH ×2 (10:26→22:55)
[2018-01-19] MEDS: Famotidine 20 MG TAB PO SCH ×2 (10:26→22:55)
[2018-01-19] MEDS: D5 1/2 NS w/20 mEq KCL 1,000 ML IV SCH ×2 (10:28→22:41)
--- NOTE | 2018-01-19 18:19 | PDOC.GSPN ---
Surgery Progress Note: Subj - Subjective Narrative: Patient is noncommunicative but does not express any discomfort with palpation of the abdomen. The incisions are clean and healing. The PEG tube site is clean. He is tolerating his tube feeds although his residuals have been high off and on. His morning tube feeds at to be held due to high residual of 240 mL' s. We will continue to try to advance his feeds to goal. Surgery Progress Note: Obj - Vital signs Vital signs: Vital Signs - Most Recent Temp Pulse Resp BP Pulse Ox 98.0 F 95 18 128/89 92 L 01/19/18 16:00 01/19/18 16:00 01/19/18 16:00 01/19/18 16:00 01/19/18 16:00 Surgery Progress Note: Results - Labs Result Diagrams: 01/18/18 03:35 01/18/18 03:35 Lab results: Laboratory Results - last 24 hr 01/19/18 01/19/18 11:21 15:55 POC Glucose 99 123 H
[2018-01-19] MEDS: Metoclopramide HCl 10 MG TAB PER TUBE SCH (22:54)
[2018-01-19] MEDS: Atorvastatin Calcium 40 MG TAB PO SCH (22:54)
[2018-01-20] MEDS: Morphine 4 MG/ML VIAL SLOW IVP PRN ×2 (04:16→22:44)
[2018-01-20] MEDS: Piperacillin/Tazobactam 3.375 GM in Sodium Chloride 0.9% 100 ML IVPB SCH ×4 (04:16→22:46)
[2018-01-20] MEDS: D5 1/2 NS w/20 mEq KCL 1,000 ML IV SCH ×2 (05:11→16:36)
--- NOTE | 2018-01-20 07:41 | PDOC.GSPN ---
Surgery Progress Note: Subj - Subjective Patient reports: no bowel movement Narrative: Tolerating TF, residuals small to moderate Surgery Progress Note: Obj - Vital signs Vital signs: Vital Signs - Most Recent Temp Pulse Resp BP Pulse Ox 98.8 F 86 16 90/62 93 L 01/20/18 07:31 01/20/18 07:31 01/20/18 07:31 01/20/18 07:31 01/20/18 07:31 - Physical Exam General: no distress Respiratory: clear to auscultation Abdomen: soft, appropriately tender Wound: healing well Surgery Progress Note: Results - Labs Result Diagrams: 01/18/18 03:35 01/18/18 03:35 Lab results: Laboratory Results - last 24 hr 01/19/18 01/20/18 19:38 05:01 POC Glucose 111 H 134 H Surgery Progress Note: A/P - Problem (1) CVA (cerebral vascular accident) Current Visit: No Code(s): I63.9 - CEREBRAL INFARCTION, UNSPECIFIED Status: Acute Qualifiers: Precerebral and cerebral artery: middle cerebral artery Laterality of affected vessel: right (2) Protein calorie malnutrition Current Visit: Yes Code(s): E46 - UNSPECIFIED PROTEIN-CALORIE MALNUTRITION Status: Acute Assessment and Plan: TF almost goal, will look into care home
[2018-01-20] MEDS: Famotidine 20 MG TAB PO SCH ×2 (09:30→22:45)
[2018-01-20] MEDS: Metoclopramide HCl 10 MG TAB PER TUBE SCH ×3 (09:30→22:46)
[2018-01-20] MEDS: Famotidine/PF 20 mg/2ml Vial SLOW IVP SCH ×2 (09:30→22:46)
[2018-01-20] MEDS: Amlodipine 10 MG TAB PO SCH (10:12)
[2018-01-20] MEDS: Lisinopril 20 MG TAB PO SCH (10:13)
--- NOTE | 2018-01-20 13:49 | PQF ---
Date: 01-20-18 ATTN: DR. HILARIO MONTERROSO Please exercise your independent, professional judgment in responding to the clarification form. Clinical indicators are provided on the bottom of this form for your review Please check appropriate box(s): [ ] Protein Calorie Malnutrition: [ ] Mild [ ] Moderate [ ] Severe [ ] Other Malnutrition (please specify) __ [ ] Other diagnosis [ ] Unable to determine In addition, please specify: Present on Admission (POA): [ ] Yes [ ] No [ ] Unable to determine CLINICAL INDICATORS - SIGNS / SYMPTOMS / LABS BMI of 20.0 DR. MARTINEZ PN 01-20-18: PROTEIN CALORIE MALNUTRITION ADMINISTRATIVE SECRETARY CONSULT: 01-17-18: The patient was triggered for a PEG. The patient was in the OR for PEG replacement when RD rounded. Previous records indicate that he weighed ~144# during his last visit . The patient is currently meeting ~0-26% of his estimated needs. RISK FACTORS: ADMINISTRATIVE SECRETARY CONSULT 01-17-18: CVA, dysphagia, PEG, dyslipidemia , PEG tube dislodgement H&P: HX OF CVA, DYSPHAGIA, INABILITY TO SWALLOW, HTN, DYSLIPIDEMIA, FORMER SMOKER TREATMENT: ADMINISTRATIVE SECRETARY CONSULT 01-17-18: 1) Continue NPO status. 2) Once PEG is replaced, recommend initiate Jevity 1.5 TF with a goal rate of 45 ml/hr. Provide minimal flushes while IVF are running. 3) If bolus feeding is desired, recommend Jevity 1.5, 5 cans/day with minimal flushes while IVF are running Moderate Malnutrition (in acute illness) Energy Intake: <75% of estimated energy requirement for > 7 days Weight Loss: 1-2%/1 week; 5%/ 1 month; 7.5%/3 months Other: mild body fat loss; mild muscle mass loss; mild fluid accumulation; Severe Malnutrition (in acute illness) Energy Intake: < 50% of estimated energy requirement for > 5 days Weight Loss: >1-2%/1 week; >5%/1 month; >7.5%/3 months Other: moderate body fat loss; moderate muscle mass loss; moderate- severe fluid accumulation; measurably reduced chemical engraver strength Moderate Malnutrition (in chronic illness) Energy Intake: <75% of estimated energy requirement for >1 month Weight Loss: 5%/1 month; 7.5%/3 months; 10%/6 months; 20%/1 year Other: mild body fat loss; mild muscle mass loss; mild fluid accumulation Severe Malnutrition (in chronic illness) Energy Intake: <75% of estimated energy requirement for >1 month Weight Loss: >5%/1 month; >7.5%/3 months; >10%/6 months; >20%/1 year Other: severe body fat loss; severe muscle mass loss; severe fluid accumulation ; measurably reduced chemical engraver strength (This form is maintained as a part of the permanent medical record) 2015 [employer]. All Rights Reserved [email or web address] [email or web address] Office: [phone] [email or web address]
--- NOTE | 2018-01-20 14:08 | PQF ---
DATE: 01-20-18 ATTN: DR. BULL MARTINEZ Please exercise your independent, professional judgment in responding to the clarification form. Clinical indicators are provided on the bottom of this form for your review Please check appropriate box(es): [ ] Sepsis due to: (Peritonitis, etc.) [ X] SIRS due to non-infectious process (please specify etiology) Not septic, likely dehydration [ ] with organ dysfunction [ ] without organ dysfunction [ ] Localized infection without sepsis [ ] Other diagnosis [ ] Unable to determine In addition, please specify: Present on Admission (POA): [ ] Yes [ ] No [ ] Unable to determine For continuity of documentation, please document condition throughout progress notes and discharge summary. Thank You. CLINICAL INDICATORS - SIGNS / SYMPTOMS / LABS WBC: 01-17-18: 20.1 01-18-18: 15.9 BANDS: 01-17-18: 26 TEMP: ER: 99.9, 99.0, PULSE: ER: 106, 98, 104, 01-17-18: 104, 106, 106, 109, 109 RR: 01-17-18: 22, 24, 24 OPERATIVE NOTE 01-17-18: FINDINGS: MINIMAL PERITONITIS INTRA OP NOTE01-17-18: PLACEMENT TUBE GASTROSTOMY-OPEN, ABDOMINAL WASHOUT RISK FACTORS: OPERATIVE NOTE 01-17-18: FINDINGS: MINIMAL PERITONITIS INTRA OP NOTE: PLACEMENT TUBE GASTROSTOMY-OPEN, ABDOMINAL WASHOUT TREATMENTS: ER: ZOSYN IV, IVF NS MAR: ZOSYN, IVF, (This form is maintained as a part of the permanent medical record) 2014 [employer] All Rights Reserved [email or web address] [email or web address] Office: [phone] [facility]ENTER[facility]
--- NOTE | 2018-01-20 15:22 | PDOC.PN ---
- Subjective Encounter Start Date: 01/20/18 Encounter Start Time: 07:00 -: non-verbal Pt seen for followup re: hypertension. Pt is nonverbal, unable to complete ROS. - Objective MAR Reviewed: Yes Vital Signs & Weight: Vital Signs (12 hours) Temp Pulse Resp BP BP Pulse Ox 01/20/18 10:13 90/62 01/20/18 10:12 86 90/62 01/20/18 08:00 98.8 F 86 16 93 L 01/20/18 07:31 98.8 F 86 16 9062 93 L Weight Admit Weight 135 lb Weight 135 lb 8 oz I&O: 01/19/18 01/20/18 01/21/18 06:59 06:59 06:59 Intake Total 4300 2795 600 Balance 4300 2795 600 Result Diagrams: 01/18/18 03:35 01/18/18 03:35 Additional Labs: Accuchecks 01/20/18 01/20/18 01/19/18 11:37 05:01 19:38 POC Glucose 132 H 134 H 111 H 01/19/18 15:55 POC Glucose 123 H Labs reviewed by me Phys Exam - Physical Examination Malnourished HEENT: moist MMs Neck: supple Respiratory: clear to auscultation bilateral Cardiovascular: RRR Gastrointestinal: soft G-tube Neurological: moves all 4 limbs Psychiatric: normal affect Dx/Plan (1) HTN (hypertension) Code(s): I10 - ESSENTIAL (PRIMARY) HYPERTENSION Status: Chronic Qualifiers: Hypertension type: essential hypertension Qualified Code(s): I10 - Essential (primary) hypertension Comment: controlled (2) Dyslipidemia Code(s): E78.5 - HYPERLIPIDEMIA, UNSPECIFIED Status: Chronic Comment: on statin (3) H/O: CVA (cerebrovascular accident) Code(s): Z86.73 - PRSNL HX OF TIA (TIA), AND CEREB INFRC W/O RESID DEFICITS Status: Chronic Comment: stable (4) Severe protein-calorie malnutrition Code(s): E43 - UNSPECIFIED SEVERE PROTEIN-CALORIE MALNUTRITION Status: Chronic Comment: continue G-tube feeds - Plan * . Review of Systems - Medications/Allergies Allergies/Adverse Reactions: Allergies Allergy/AdvReac Type Severity Reaction Status Date / Time No Known Drug Allergies Allergy Verified 03/13/16 20:16 Medications: Current Medications Albuterol/Ipratropium (Duoneb) 3 ml NEB Q4H PRN PRN Reason: Wheezing Amlodipine Besylate (Norvasc) 10 mg PO DAILY [facility] Last Admin: 01/20/18 10:12 Dose: Not Given Atorvastatin Calcium (Lipitor) 80 mg PO HS [facility] Last Admin: 01/19/18 22:54 Dose: 80 mg Dextrose/Water (Dextrose 50%) 25 gm SLOW IVP PRN PRN PRN Reason: Hypoglycemia Famotidine (Pepcid) 20 mg PO Q12HR [facility] Last Admin: 01/20/18 09:30 Dose: 20 mg Famotidine (Pepcid) 20 mg SLOW IVP Q12HR [facility] Last Admin: 01/20/18 09:30 Dose: Not Given Glucagon (Glucagon) 1 mg IM PRN PRN PRN Reason: Hypoglycemia Hydralazine HCl (Apresoline) 10 mg SLOW IVP Q4H PRN PRN Reason: SBP > 170 or DBP > 100 Potassium Chloride/Dextrose/Sod Cl (D5 1/2 Ns W/20 Meq Kcl) 1,000 mls @ 110 mls /hr IV .Q9H6M [facility] Last Admin: 01/20/18 05:11 Dose: 1,000 mls Dextrose/Water (D5w) 1,000 mls @ 0 mls/hr IV .Q0M PRN PRN Reason: Hypoglycemia Piperacillin Sod/Tazobactam (Sod 3.375 gm/ Sodium Chloride) 100 mls @ 200 mls/ hr IVPB 0300,0900,1500,2100 [facility] Last Admin: 01/20/18 10:47 Dose: 100 mls Lisinopril (Zestril) 40 mg PO DAILY [facility] Last Admin: 01/20/18 10:13 Dose: Not Given Lorazepam (Ativan) 0.5 mg PO TID PRN PRN Reason: Anxiety/Agitation Last Admin: 01/19/18 08:56 Dose: 0.5 mg Metoclopramide HCl (Reglan) 10 mg PER TUBE TID [facility] Last Admin: 01/20/18 09:30 Dose: 10 mg Morphine Sulfate (Morphine) 2 mg SLOW IVP Q2H PRN PRN Reason: Moderate Pain (4-6) Last Admin: 01/19/18 17:43 Dose: 2 mg Morphine Sulfate (Morphine) 4 mg SLOW IVP Q2H PRN PRN Reason: Severe Pain (7-10) Last Admin: 01/20/18 04:16 Dose: 4 mg Ondansetron HCl (Zofran) 4 mg IVP Q6H PRN PRN Reason: Nausea/Vomiting Promethazine HCl (Phenergan) 12.5 mg IM Q4H PRN PRN Reason: Nausea/Vomiting Sodium Chloride (Flush - Normal Saline) 10 ml IVF PRN PRN PRN Reason: Saline Flush Last Admin: 01/19/18 10:29 Dose: 10 ml
[2018-01-20] MEDS: Atorvastatin Calcium 40 MG TAB PO SCH (22:45)
[2018-01-21] MEDS: Piperacillin/Tazobactam 3.375 GM in Sodium Chloride 0.9% 100 ML IVPB SCH ×2 (03:07→09:51)
[2018-01-21] MEDS: Morphine 4 MG/ML VIAL SLOW IVP PRN (04:27)
[2018-01-21] MEDS: D5 1/2 NS w/20 mEq KCL 1,000 ML IV SCH ×2 (04:28→14:40)
[2018-01-21] MEDS: Amlodipine 10 MG TAB PO SCH (09:52)
[2018-01-21] MEDS: Metoclopramide HCl 10 MG TAB PER TUBE SCH (09:52)
[2018-01-21] MEDS: Lisinopril 20 MG TAB PO SCH (09:52)
[2018-01-21] MEDS: Famotidine 20 MG TAB PO SCH (09:52)
[2018-01-21] MEDS: Famotidine/PF 20 mg/2ml Vial SLOW IVP SCH (09:53)
--- NOTE | 2018-01-21 10:47 | DIS ---
DATE OF DISCHARGE: 01/21/2018 ADMITTING DIAGNOSES: 1. Misplacement of PEG feeding tube. 2. History of cerebrovascular accident. 3. Hypertension. 4. Peritonitis. DISCHARGE DIAGNOSES: 1. Misplacement of PEG feeding tube. 2. History of cerebrovascular accident. 3. Hypertension. 4. Peritonitis. PROCEDURES: Open G-tube replacement and repair of stomach by Dr. Vivas without complication. CONDITION AT DISCHARGE: Improved. STAFF: Dr. Macho Vivas HOSPITAL COURSE: Hospitalist consult was obtained to assist with his care. Postop course was uneven tful. Tube feeds were started the day after surgery, slowly advanced. On the day of discharge, he i s doing well. His wound is clear. He is tolerating tube feeds. [facility]DC was offered to the family; however, they think they can safely take care of him at home, so he will go home. He will fo llow up with me in the office in 2 weeks.
--- NOTE | 2018-01-21 15:25 | PDOC.PN ---
- Subjective Encounter Start Date: 01/21/18 Encounter Start Time: 14:00 Patient is very disoriented., this is his baseline. He is Ok to be dischagred from medical stand point - Objective MAR Reviewed: Yes Vital Signs & Weight: Vital Signs (12 hours) Temp Pulse Resp BP BP Pulse Ox 01/21/18 11:14 97.8 F 108 H 20 131/87 91 L 01/21/18 09:52 84 136/84 01/21/18 08:00 97.9 F 84 20 100 01/21/18 07:11 97.9 F 84 20 136/84 100 01/21/18 03:30 94 L Weight Admit Weight 135 lb Weight 135 lb 8 oz I&O: 01/20/18 01/21/18 01/22/18 06:59 06:59 06:59 Intake Total 2795 4760 600 Balance 2795 4760 600 Result Diagrams: 01/18/18 03:35 01/18/18 03:35 Additional Labs: Accuchecks 01/21/18 01/21/18 01/20/18 11:12 05:19 19:28 POC Glucose 135 H 172 H 155 H 01/20/18 17:01 POC Glucose 127 H Radiology Reviewed by me: Yes Phys Exam - Physical Examination HEENT: PERRLA, moist MMs Neck: no nodes, no JVD Respiratory: no wheezing, no rales Cardiovascular: RRR, no significant murmur Gastrointestinal: soft, non-tender Musculoskeletal: no edema, pulses present Dx/Plan (1) H/O: CVA (cerebrovascular accident) Code(s): Z86.73 - PRSNL HX OF TIA (TIA), AND CEREB INFRC W/O RESID DEFICITS Status: Chronic Comment: stable (2) Severe protein-calorie malnutrition Code(s): E43 - UNSPECIFIED SEVERE PROTEIN-CALORIE MALNUTRITION Status: Chronic Comment: continue G-tube feeds (3) Acute kidney failure Status: Acute Qualifiers: Acute renal failure type: unspecified Qualified Code(s): N17.9 - Acute kidney failure, unspecified Comment: Resolving (4) CVA (cerebral vascular accident) Code(s): I63.9 - CEREBRAL INFARCTION, UNSPECIFIED Status: Acute Qualifiers: Precerebral and cerebral artery: middle cerebral artery Laterality of affected vessel: right Comment: L hemiparesis, motor and sensory deficits, Pt has severe Aphasia and Not following commands, severe Aortic Stenosis. (5) Dysphagia as late effect of cerebrovascular accident (CVA) Code(s): I69.391 - DYSPHAGIA FOLLOWING CEREBRAL INFARCTION Status: Acute Comment: s/p PEG placement with tolerating Jevity 1.5, monitor for residuals (6) HTN (hypertension) Code(s): I10 - ESSENTIAL (PRIMARY) HYPERTENSION Status: Chronic Qualifiers: Hypertension type: essential hypertension Qualified Code(s): I10 - Essential (primary) hypertension Comment: controlled - Plan cont current plan of care, PT/OT, licensed social worker, incentive spirometry, DVT proph w/lovenox Will sign off * . Review of Systems - Review of Systems Eyes: negative: Pain, Vision Change, Conjunctivae Inflammation, Eyelid Inflammation, Redness, Other ENT: negative: Ear Pain, Ear Discharge, Nose Pain, Nose Discharge, Nose Congestion, Mouth Pain, Mouth Swelling, Throat Pain, Throat Swelling, Other Respiratory: negative: Cough, Dry, Shortness of Breath, Hemoptysis, SOB with Excertion, Pleuritic Pain, Sputum, Wheezing Cardiovascular: negative: chest pain, palpitations, orthopnea, paroxysmal nocturnal dyspnea, edema, light headedness, other Gastrointestinal: negative: Nausea, Vomiting, Abdominal Pain, Diarrhea, Constipation, Melena, Hematochezia, Other Genitourinary: negative: Dysuria, Frequency, Incontinence, Hematuria, Retention , Other Musculoskeletal: negative: Neck Pain, Shoulder Pain, Arm Pain, Back Pain, Hand Pain, Leg Pain, Foot Pain, Other - Medications/Allergies Allergies/Adverse Reactions: Allergies Allergy/AdvReac Type Severity Reaction Status Date / Time No Known Drug Allergies Allergy Verified 03/13/16 20:16 Medications: Current Medications Albuterol/Ipratropium (Duoneb) 3 ml NEB Q4H PRN PRN Reason: Wheezing Amlodipine Besylate (Norvasc) 10 mg PO DAILY [facility] Last Admin: 01/21/18 09:52 Dose: 10 mg Atorvastatin Calcium (Lipitor) 80 mg PO HS [facility] Last Admin: 01/20/18 22:45 Dose: 80 mg Dextrose/Water (Dextrose 50%) 25 gm SLOW IVP PRN PRN PRN Reason: Hypoglycemia Famotidine (Pepcid) 20 mg PO Q12HR [facility] Last Admin: 01/21/18 09:52 Dose: 20 mg Famotidine (Pepcid) 20 mg SLOW IVP Q12HR [facility] Last Admin: 01/21/18 09:53 Dose: Not Given Glucagon (Glucagon) 1 mg IM PRN PRN PRN Reason: Hypoglycemia Hydralazine HCl (Apresoline) 10 mg SLOW IVP Q4H PRN PRN Reason: SBP > 170 or DBP > 100 Potassium Chloride/Dextrose/Sod Cl (D5 1/2 Ns W/20 Meq Kcl) 1,000 mls @ 110 mls /hr IV .Q9H6M [facility] Last Admin: 01/21/18 14:40 Dose: Not Given Dextrose/Water (D5w) 1,000 mls @ 0 mls/hr IV .Q0M PRN PRN Reason: Hypoglycemia Piperacillin Sod/Tazobactam (Sod 3.375 gm/ Sodium Chloride) 100 mls @ 200 mls/ hr IVPB 0300,0900,1500,2100 [facility] Last Admin: 01/21/18 09:51 Dose: 100 mls Lisinopril (Zestril) 40 mg PO DAILY [facility] Last Admin: 01/21/18 09:52 Dose: 40 mg Lorazepam (Ativan) 0.5 mg PO TID PRN PRN Reason: Anxiety/Agitation Last Admin: 01/19/18 08:56 Dose: 0.5 mg Metoclopramide HCl (Reglan) 10 mg PER TUBE TID [facility] Last Admin: 01/21/18 09:52 Dose: 10 mg Morphine Sulfate (Morphine) 2 mg SLOW IVP Q2H PRN PRN Reason: Moderate Pain (4-6) Last Admin: 01/19/18 17:43 Dose: 2 mg Morphine Sulfate (Morphine) 4 mg SLOW IVP Q2H PRN PRN Reason: Severe Pain (7-10) Last Admin: 01/21/18 04:27 Dose: 4 mg Ondansetron HCl (Zofran) 4 mg IVP Q6H PRN PRN Reason: Nausea/Vomiting Promethazine HCl (Phenergan) 12.5 mg IM Q4H PRN PRN Reason: Nausea/Vomiting Sodium Chloride (Flush - Normal Saline) 10 ml IVF PRN PRN PRN Reason: Saline Flush Last Admin: 01/19/18 10:29 Dose: 10 ml
[2018-01-21 15:57] VITALS: BP 120/82; TEMP 98.8
== END 2018-01-21 18:04 | disposition home or self-care (01) | DRG 326 ==
LOC: ERS 22:33 → T4-A 01-17 00:55 → OBSVTOIN 01-17 00:55
PROVIDERS: ADMIT Surgery; ATTEND Surgery
PROC: 0DQ60ZZ Repair Stomach, Open Approach (ICD-10-PCS; principal; 2018-01-17)
PROC: 0DH60UZ Insertion of Feeding Device into Stomach, Open Approach (ICD-10-PCS; 2018-01-17)
DX: K94.23 Gastrostomy malfunction (principal); K65.9 Peritonitis, unspecified; E43 Unspecified severe protein-calorie malnutrition; N17.9 Acute kidney failure, unspecified; I69.354 Hemiplegia and hemiparesis following cerebral infarction affecting left non-dominant side; R65.10 Systemic inflammatory response syndrome (SIRS) of non-infectious origin without acute organ dysfunction; I10 Essential (primary) hypertension; E78.5 Hyperlipidemia, unspecified; I69.320 Aphasia following cerebral infarction; Z68.20 Body mass index [BMI] 20.0-20.9, adult; E86.0 Dehydration; Z79.02 Long term (current) use of antithrombotics/antiplatelets; Z79.82 Long term (current) use of aspirin; Z79.899 Other long term (current) drug therapy; Y83.3 Surgical operation with formation of external stoma as the cause of abnormal reaction of the patient, or of later complication, without mention of misadventure at the time of the procedure
CPT/HCPCS: 36415; 36416; 43760; 74018; 74176; 80048; 80053; 83690; 85025; 90471; 90670; 96365; B4087; G0009; J2001; J2250; J2270; J2543; J3010; J7050; S0028

== ENCOUNTER 2018-03-22 23:04 | Emergency (ER) | payer OTHER ==
[2018-03-22] MEDS ORDERED: levETIRAcetam In NaCl (Iso-Os) 1,000 MG in Premix Bag 1 BAG IVPB SCH (23:30)
[2018-03-22 23:39] LABS: #Basophils 0.1 thou/uL (0.0-0.2); #Eosinphils 0.1 thou/uL (0.0-0.7); #Lymphocytes 2.7 thou/uL (1.20-3.40); #Monocytes 0.9 thou/uL (0.11-0.59); #Neutrophils 8.1 thou/uL (1.40-6.50); %Basophils 0.8 % (0.0-1.0); %Eosinophils 0.4 % (0.0-10.0); %Lymphocytes 22.9 % (21.0-51.0); %Monocytes 7.3 % (0.0-10.0); %Neutrophils 68.6 % (42.0-75.0); Hemoglobin 13.9 g/dL (14.0-18.0); Mean Corpuscular HGB CONC 34.1 g/dL (32.0-36.0); Mean Corpuscular Hemoglobin 29.3 pg (27.0-31.0); Platelet Count 339 thou/uL (130-400); RBC Distribution Width 12.5 % (11.5-14.5); Red Blood Cell (RBC) Count 4.75 mill/uL (4.70-6.10); White Blood Cell (WBC) Count 11.8 thou/uL (4.8-10.8)
[2018-03-22 23:45] LABS: Bilirubin Negative (Negative); Blood, Urine Negative (Negative); Clarity CLEAR (Clear); Glucose, Urine (Dipstick) Negative (Negative); Leukocyte Negative (Negative); Nitrite Negative (Negative); Protein, Urine (Dipstick) 30 mg/dL (Neg-Trace); Specific Gravity, Urine 1.017 (1.002-1.036)
[2018-03-22 23:47] LABS: Bacteria/HPF None Seen HPF (None Seen); Hyaline Casts/LPF 4-6 HYALINE CAST LPF (0-3 Hyaline); Pathc Cast-AUWi Flag 0.29 (0-2.49); RBC/HPF 0-3 HPF (0-3); WBC/HPF 0-3 HPF (0-3)
[2018-03-22 23:49] LABS: Oval Fat Bodies/HPF None Seen HPF (None Seen); Renal Epithelial 0-3 HPF (0-3); Sperm/HPF None Seen HPF (None Seen); Transitional Epithelial NONE SEEN HPF (0-3); Trichomonas/HPF None Seen HPF (None Seen); Yeast-All Forms None Seen HPF (None Seen)
--- NOTE | 2018-03-22 23:51 | CT ---
CT OF THE BRAIN WITHOUT CONTRAST 03/22/18 INDICATION: History of seizures. COMPARISON: Prior exam dated 12/21/17. FINDINGS: There is stable encephalomalacia involving the MCA distributions bilaterally as well as the left occi pital lobe and left basal ganglia. There is no definite acute infarct, hemorrhage or hydrocephalus pr esent. There is opacification of the left mastoid air cells which is stable. There is cerumen build u p within both external auditory canals. The paranasal sinuses and clear. IMPRESSION: 1. No acute intracranial abnormality. Stable chronic ischemic change. 2. Stable left mastoid effusion. POS: [facility]
[2018-03-23 00:02] LABS: ALT (SGPT) 70 U/L (8-55); AST (SGOT) 33 U/L (5-34); Albumin 3.8 g/dL (3.4-4.8); Alkaline Phosphatase 91 U/L (40-150); Anion Gap 17 mmol/L (10-20); BUN (Urea Nitrogen) 18 mg/dL (8.4-25.7); Bilirubin, Total 0.5 mg/dL (0.2-1.2); CK (CPK) 104 U/L (30-200); Calc. Creatinine Clearance 0 mL/min (70-130); Calcium 9.2 mg/dL (7.8-10.44); Carbon Dioxide 20 mmol/L (23-31); Chloride 104 mmol/L (98-107); Estimated GFR-MDRD Greater than 90; Globulin 3.1 g/dL (2.4-3.5); Glucose 151 mg/dL (80-115); Protein, Total 6.9 g/dL (5.8-8.1); Sodium 137 mmol/L (136-145)
[2018-03-23 00:06] LABS: CKMB 2.4 ng/mL (0-6.6); Troponin I Less than 0.010 ng/mL (< 0.028)
[2018-03-23 00:08] LABS: Carbamazepine-Tegretol Less than 1.9 ug/mL (4.0-12.0)
== END 2018-03-23 01:10 | disposition home or self-care (01) ==
LOC: ERS 23:04
DX: R56.9 Unspecified convulsions (principal); I10 Essential (primary) hypertension; Z86.73 Personal history of transient ischemic attack (TIA), and cerebral infarction without residual deficits; Z87.891 Personal history of nicotine dependence
CPT/HCPCS: 36415; 70450; 80053; 80156; 81003; 81015; 82553; 83735; 84146; 84484; 85025; 93005; 96365; J1953

== ENCOUNTER 2018-05-23 21:52 | Emergency (ER) | payer OTHER | END 2018-05-23 22:19 | disposition home or self-care (01) | LOC: ERS 21:52 | DX: Z43.1 Encounter for attention to gastrostomy (principal); Z86.73 Personal history of transient ischemic attack (TIA), and cerebral infarction without residual deficits; I10 Essential (primary) hypertension | CPT/HCPCS: 43760; B4087 ==

== ENCOUNTER 2018-08-14 09:59 | Emergency (ER) | payer OTHER ==
--- NOTE | 2018-08-14 11:07 | RAD ---
ABDOMEN 1 VIEW: Date: 08/14/18 HISTORY: PEG tube placement. FINDINGS/IMPRESSION: There is contrast in the PEG tube, stomach, and duodenum, indicating appropriate placement and patenc y. POS: [facility]
== END 2018-08-14 12:13 | disposition home or self-care (01) ==
LOC: ERS 09:59
DX: Z43.1 Encounter for attention to gastrostomy (principal); I10 Essential (primary) hypertension; Z86.73 Personal history of transient ischemic attack (TIA), and cerebral infarction without residual deficits
CPT/HCPCS: 43762; 74018

== ENCOUNTER 2018-08-30 00:17 | Emergency (ER) | payer OTHER | END 2018-08-30 03:01 | disposition home or self-care (01) | LOC: ERS 00:17 | DX: K94.23 Gastrostomy malfunction (principal); I10 Essential (primary) hypertension; Z86.73 Personal history of transient ischemic attack (TIA), and cerebral infarction without residual deficits; Z79.899 Other long term (current) drug therapy; Z79.82 Long term (current) use of aspirin | CPT/HCPCS: 99282 ==

== ENCOUNTER 2018-10-07 06:46 | Emergency (ER) | payer OTHER ==
--- NOTE | 2018-10-07 08:43 | RAD ---
ABDOMEN 1 VIEW: Date: 10/07/18 HISTORY: PEG placement position evaluation. COMPARISON: 08/14/18. FINDINGS: Contrast media injected through the PEG tube, entering the fundus of the stomach, without evidence of extravasation. IMPRESSION: 1. PEG tube in satisfactory location. 2. Considerable solid fecal material throughout the colon. No overt bowel obstruction. POS: [facility]
== END 2018-10-07 07:41 | disposition home or self-care (01) ==
LOC: ERS 06:46
DX: K94.23 Gastrostomy malfunction (principal); I10 Essential (primary) hypertension; Z86.73 Personal history of transient ischemic attack (TIA), and cerebral infarction without residual deficits
CPT/HCPCS: 43762; 74018

== ENCOUNTER 2019-06-10 17:31 | Emergency (ER) | payer OTHER ==
[~2019-06-10 17:31] MED LIST changes: -GASTROGRAFIN 30 ML BOT ONE; +MD-Gastroview 120 ML BOT ONE
--- NOTE | 2019-06-10 19:50 | RAD ---
PORTABLE CHEST: 06/10/19 PROVIDED CLINICAL HISTORY: Chest pain. FINDINGS: Comparison 12/21/17. Examination is performed in apical lordotic positioning. No focal consolidation, pleural fluid, or pneumothorax apparent. The cardiac and mediastinal silhouet te is within normal limits. IMPRESSION: No evidence for an acute cardiopulmonary process. POS: [facility]
--- NOTE | 2019-06-10 20:17 | RAD ---
KUB 06/10/19 PROVIDED CLINICAL HISTORY: PEG tube replacement. FINDINGS: Comparison 01/25/19. Contrast material is administered via the patient's indwelling percutaneous gastrostomy tube. Subsequ ent image was performed after a five minute delay. Contrast material is noted opacifying the stomach and duodenum. The abdominal bowel gas pattern is nonspecific. The visualized lung bases appear clear. IMPRESSION: Contrast administered via the patient's percutaneous gastrostomy tube opacifies the stomach and duode num. POS: [facility]
--- NOTE | 2019-06-10 20:30 | CT ---
NONCONTRAST CT HEAD: 06/10/19 HISTORY: Dementia. Injury after recent fall. COMPARISON: 03/04/18. FINDINGS: Again noted are multifocal areas of encephalomalacia seen within the cerebral hemispheres bilaterally likely related to remote areas of infarction. Low density area/encephalomalacia in the region of the left basal ganglia is also likely related to remote area of infarction. No definite acute cortical i nfarction, hemorrhage, mass effect or midline shift is seen. Cerebral and cerebellar volume loss is a gain noted. There is mild ex vacuo dilatation of the body of the left lateral ventricle also noted on the prior exam. The left mastoid air cells are not well pneumatized with visualized mastoid air cells again demonstra ting mastoid effusions. IMPRESSION: 1. No acute intracranial abnormalities demonstrated. 2. Stable multifocal areas of encephalomalacia throughout the cerebral hemispheres bilaterally. 3. Cerebral volume loss. 4. Stable left mastoid effusions. POS: [facility]
--- NOTE | 2019-06-10 21:27 | CT ---
NONCONTRAST CT CERVICAL SPINE: 06/10/19 HISTORY: Injury after a fall. Dementia. COMPARISON: 12/21/17. TECHNIQUE: Contiguous CT images are obtained through the cervical spine from skull base to the T2-3 level. Sagit argenis and coronal reformat images are provided. FINDINGS: Small portion of the skull base is precluded from view. Scattered degenerative changes are again seen in the cervical spine which has not significantly progr essed to the prior exam. The vertebral body heights are within normal limits. No fracture or subluxat ion is seen involving the cervical spine. There is rotation at the C1-2 level likely related to rotat ion of the patient's head. No prevertebral soft tissue swelling is identified. Emphysematous changes are again seen in the upper lung zones. IMPRESSION: 1. No acute fracture or subluxation involving the cervical spine. 2. Multilevel degenerative changes. 3. Evidence of COPD in the visualized upper lung zones. POS: [facility]
== END 2019-06-10 20:36 | disposition home or self-care (01) ==
LOC: ERS 17:31
DX: Z43.3 Encounter for attention to colostomy (principal); S09.90XA Unspecified injury of head, initial encounter; I10 Essential (primary) hypertension; Z86.73 Personal history of transient ischemic attack (TIA), and cerebral infarction without residual deficits; W06.XXXA Fall from bed, initial encounter
CPT/HCPCS: 43762; 70450; 71045; 72125; 74018; Q9963

== ENCOUNTER 2020-03-08 06:19 | Emergency (ER) | payer OTHER | END 2020-03-08 11:49 | disposition home or self-care (01) | LOC: ERS 06:19 | DX: K94.23 Gastrostomy malfunction (principal); I10 Essential (primary) hypertension | CPT/HCPCS: 99283 ==

== ENCOUNTER 2020-12-21 21:53 | Emergency (ER) | payer OTHER ==
[~2020-12-21 21:53] MED LIST changes: +GASTROGRAFIN 30 ML BOT ONE; -MD-Gastroview 120 ML BOT ONE
== END 2020-12-22 01:26 ==
LOC: ERS 21:53
DX: Z46.59 Encounter for fitting and adjustment of other gastrointestinal appliance and device (principal); I10 Essential (primary) hypertension; Z86.73 Personal history of transient ischemic attack (TIA), and cerebral infarction without residual deficits; Z79.82 Long term (current) use of aspirin; Z79.899 Other long term (current) drug therapy
CPT/HCPCS: 43762; 74018; Q9963

== ENCOUNTER 2022-04-19 15:14 | Emergency (ER) | payer OTHER ==
[2022-04-19] MEDS ORDERED: Ondansetron PF 4 MG/2 ML Vial ONE (16:04)
[2022-04-19] MEDS ORDERED: Morphine 4 MG/ML VIAL ONE (16:04)
[2022-04-19 16:17] LABS: #Eosinphils 0.1 thou/uL (0.0-0.7); #Lymphocytes 2.2 thou/uL (1.20-3.40); #Monocytes 0.5 thou/uL (0.11-0.59); %Basophils 0.7 % (0.0-1.0); %Eosinophils 0.9 % (0.0-10.0); %Lymphocytes 32.6 % (21.0-51.0); %Monocytes 7.4 % (0.0-10.0); %Neutrophils 58.4 % (42.0-75.0); Hemoglobin 14.4 g/dL (14.0-18.0); Mean Corpuscular HGB CONC 33.5 g/dL (32.0-36.0); Mean Corpuscular Hemoglobin 30.5 pg (27.0-31.0); Mean Corpuscular Volume 91.2 fl (78.0-98.0); Platelet Count 138 10x3/uL (130-400); RBC Distribution Width 12.9 % (11.5-14.5); Red Blood Cell (RBC) Count 4.73 mill/uL (4.70-6.10); White Blood Cell (WBC) Count 6.8 10x3/uL (4.8-10.8)
[2022-04-19 16:34] LABS: ALT (SGPT) 27 U/L (8-55); AST (SGOT) 26 U/L (5-34); Albumin 3.8 g/dL (3.4-4.8); Alkaline Phosphatase 120 U/L (40-110); Anion Gap 13 mmol/L (10-20); BUN (Urea Nitrogen) 14 mg/dL (8.4-25.7); Bilirubin, Total 0.5 mg/dL (0.2-1.2); Calc. Creatinine Clearance 0 mL/min (70-130); Calcium 9.3 mg/dL (7.8-10.44); Carbon Dioxide 27 mmol/L (23-31); Chloride 103 mmol/L (98-107); Estimated GFR 100; Globulin 3.9 g/dL (2.4-3.5); Glucose 81 mg/dL (80-115); Lipase 42 U/L (8-78); Magnesium 1.9 mg/dL (1.6-2.6); Potassium 4.1 mmol/L (3.5-5.1); Protein, Total 7.7 g/dL (5.8-8.1); Sodium 139 mmol/L (136-145)
== END 2022-04-19 18:30 | disposition home or self-care (01) ==
LOC: ER/OP 15:14
DX: E86.0 Dehydration (principal); R19.7 Diarrhea, unspecified
CPT/HCPCS: 36415; 80053; 83690; 83735; 85025; 96361; 96374; 96375; J2270; J2405

== ENCOUNTER 2022-04-22 21:16 | Emergency (ER) | payer OTHER | END 2022-04-23 04:28 | disposition home or self-care (01) | LOC: ERS 21:16 | DX: Z46.59 Encounter for fitting and adjustment of other gastrointestinal appliance and device (principal) | CPT/HCPCS: 74018; Q9963 ==

== ENCOUNTER 2023-05-20 09:20 | Outpatient (CLI) | payer OTHER | END 2023-05-20 09:21 | disposition home or self-care (01) | LOC: RAD 09:20 | PROVIDERS: ATTEND Family Medicine | DX: J40 Bronchitis, not specified as acute or chronic (principal) | CPT/HCPCS: 71046 ==

== ENCOUNTER 2023-07-02 07:33 | Emergency (ER) | payer OTHER ==
[2023-07-02] MEDS ORDERED: GASTROGRAFIN 30 ML BOT ONE (08:24)
== END 2023-07-02 10:10 | disposition home or self-care (01) ==
LOC: ERS 07:33
DX: K94.23 Gastrostomy malfunction (principal); I10 Essential (primary) hypertension
CPT/HCPCS: 43762; 74018; Q9963

== ENCOUNTER 2023-11-25 13:43 | Inpatient (IN) | payer OTHER, MEDICAID ==
[~2023-11-25 13:43] MED LIST changes: -GASTROGRAFIN 30 ML BOT ONE; +Iopamidol-370 76% 500 ML MDV (1 ML CHARGE) ONE
[2023-11-25] MEDS ORDERED: Acetaminophen 650 MG Suppository ONE (15:05)
[2023-11-25] MEDS ORDERED: Ondansetron PF 4 MG/2 ML Vial ONE (15:06)
[2023-11-25 15:20] LABS: #Basophils Less than 0.03 10x3/uL (0.0-0.2); #Eosinphils Less than 0.03 10x3/uL (0.0-0.7); %Basophils 0.1 % (0.0-1.0); %Eosinophils 0.1 % (0.0-10.0); %Lymphocytes 7.1 % (21.0-51.0); %Monocytes 7.9 % (0.0-10.0); %Neutrophils 84.5 % (42.0-75.0); Hematocrit 41.3 % (42.0-52.0); Mean Corpuscular HGB CONC 33.9 g/dL (32.0-36.0); Mean Corpuscular Hemoglobin 29.8 pg (27.0-31.0); Mean Corpuscular Volume 87.9 fL (78.0-98.0); Mean Platelet Volume 11.9 fL (7.4-10.4); Platelet Count 170 10x3/uL (130-400); RBC Distribution Width 14.2 % (11.5-14.5)
[2023-11-25 15:35] LABS: INR-International Normal Ratio 1.2; Prothrombin Time 15.1 sec (12.0-14.7)
[2023-11-25 15:51] LABS: ALT (SGPT) 31 U/L (8-55); AST (SGOT) 28 U/L (5-34); Albumin 3.4 g/dL (3.4-4.8); Alkaline Phosphatase 105 U/L (40-110); BUN (Urea Nitrogen) 21 mg/dL (8.4-25.7); Bilirubin, Total 0.9 mg/dL (0.2-1.2); Calc. Creatinine Clearance 0 mL/min (70-130); Calcium 9.3 mg/dL (7.8-10.44); Carbon Dioxide 25 mmol/L (23-31); Estimated GFR 95; Globulin 4.5 g/dL (2.4-3.5); Glucose 100 mg/dL (80-115); Lipase 15 U/L (8-78); Protein, Total 7.9 g/dL (5.8-8.1)
[2023-11-25 15:54] LABS: Troponin I 0.029 ng/mL (< 0.028)
[2023-11-25 16:08] LABS: Bacteria/HPF None Seen HPF (None Seen); Bilirubin Negative (Negative); Blood, Urine Negative (Negative); CAUTI Indications for Culture Pelvic or flank pain; Clarity Clear (Clear); Glucose, Urine (Dipstick) Normal (Negative); Ketone, Urine Negative (Negative); Leukocyte Negative Leu/uL (Negative); Nitrite Negative (Negative); Protein, Urine (Dipstick) 30 mg/dL (Neg-Trace); RBC/HPF 0-3 HPF (0-3); Specific Gravity, Urine 1.029 (1.002-1.036); Squamous Epithelial 0-3 HPF (0-3); Urobilinogen 6 mg/dL (Less than 2); pH, Urine 7.5 (5.0-9.0)
[2023-11-25 16:11] LABS: Urine Culture Reflex No No
[2023-11-25] MEDS ORDERED: Cefepime 2 GM VIAL ONE (16:21)
[2023-11-25 16:36] LABS: Influenza A by NAA Not Detected (NotDetected); Influenza B by NAA Not Detected (NotDetected); SARS-CoV-2 NAA Rapid Test Not Detected (NotDetected)
[2023-11-25 17:41] LABS: Anion Gap 20 mmol/L (10-20); Chloride 105 mmol/L (98-107); Potassium 4.3 mmol/L (3.5-5.1); Sodium 143 mmol/L (136-145)
[2023-11-25] MEDS ORDERED: LORazepam 2 MG/ML SYR.(CARPUJECT) ONE (19:51)
[2023-11-25 20:26] LABS: Troponin I 0.051 ng/mL (< 0.028)
[2023-11-25] MEDS ORDERED: Aspirin 300 MG Suppository ONE (22:01)
[2023-11-25] MEDS ORDERED: Enoxaparin 80 MG (0.8 mL) SYRINGE ONE (22:01)
[2023-11-25] MEDS ORDERED: Ondansetron PF 4 MG/2 ML Vial IVP PRN (22:42)
[2023-11-25] MEDS ORDERED: Acetaminophen 650 MG Suppository PR PRN (22:42)
[2023-11-26 00:40] VITALS: BMI 15.5
[2023-11-26] MEDS: Lactated Ringer's 1,000 ML IV SCH (02:19)
[2023-11-26] MEDS: Cefepime 1 GM in Sodium Chloride 0.9% 100 ML IVPB SCH (05:12)
[2023-11-26 06:23] LABS: #Basophils 0.03 10x3/uL (0.0-0.2); %Basophils 0.3 % (0.0-1.0); %Lymphocytes 29.7 % (21.0-51.0); %Monocytes 8.4 % (0.0-10.0); %Neutrophils 60.4 % (42.0-75.0); Hematocrit 35.2 % (42.0-52.0); Hemoglobin 11.6 g/dL (14.0-18.0); Mean Corpuscular Hemoglobin 29.7 pg (27.0-31.0); Mean Corpuscular Volume 90.3 fL (78.0-98.0); Mean Platelet Volume 11.6 fL (7.4-10.4); Platelet Count 142 10x3/uL (130-400); RBC Distribution Width 14.2 % (11.5-14.5)
[2023-11-26 06:39] LABS: Anion Gap 14 mmol/L (10-20); BUN (Urea Nitrogen) 16 mg/dL (8.4-25.7); Calc. Creatinine Clearance 67 mL/min (70-130); Calcium 8.3 mg/dL (7.8-10.44); Carbon Dioxide 21 mmol/L (23-31); Chloride 113 mmol/L (98-107); Estimated GFR 100; Glucose 62 mg/dL (80-115); Sodium 144 mmol/L (136-145)
[2023-11-26 07:12] LABS: Troponin I 0.064 ng/mL (< 0.028)
[2023-11-26] MEDS ORDERED: Clopidogrel Bisulfate 75 MG TAB PER TUBE SCH (09:00)
[2023-11-26 09:51] VITALS: BMI 15.5
[2023-11-26] MEDS: Lorazepam 0.5 MG TAB PER TUBE PRN (10:18)
[2023-11-26] MEDS: Enoxaparin 60 MG (0.6 mL) SYRINGE SC SCH (10:18)
[2023-11-26] MEDS: Atorvastatin Calcium 40 MG TAB PER TUBE SCH (10:18)
[2023-11-26] MEDS: Aspirin Chewable 81 MG TAB PER TUBE SCH (10:19)
[2023-11-26] MEDS: Amlodipine 10 MG TAB PER TUBE SCH (10:19)
[2023-11-26] MEDS: Vancomycin (BATCH) 1.75 GM in Premix 1 BAG IVPB SCH (10:24)
[2023-11-26] MEDS: Losartan 25 MG TAB PER TUBE SCH (10:25)
[2023-11-26] MEDS: Lisinopril 20 MG TAB PER TUBE SCH (11:34)
[2023-11-26] MEDS: cefTRIAXone\\ROCEPHIN 2 GM in Sodium Chloride 0.9% 100 ML IVPB SCH (17:41)
[2023-11-27] MEDS: Apixaban 5 MG TAB PO SCH (09:17)
[2023-11-30 09:59] LABS: #Basophils 0.05 10x3/uL (0.0-0.2); %Basophils 0.6 % (0.0-1.0); %Eosinophils 2.6 % (0.0-10.0); %Lymphocytes 26.2 % (21.0-51.0); %Monocytes 9.7 % (0.0-10.0); %Neutrophils 60.5 % (42.0-75.0); Hematocrit 40.1 % (42.0-52.0); Hemoglobin 13.7 g/dL (14.0-18.0); Mean Corpuscular HGB CONC 34.4 g/dL (32.0-36.0); Mean Corpuscular Hemoglobin 29.2 pg (27.0-31.0); Mean Platelet Volume 10.9 fL (7.4-10.4); Platelet Count 188 10x3/uL (130-400); RBC Distribution Width 13.9 % (11.5-14.5); Red Blood Cell (RBC) Count 4.79 mill/uL (4.70-6.10)
[2023-11-30 10:19] LABS: Band 1 % (5-11); Eosinophils 2 % (0-10); Lymphocytes 24 % (21-51); Macrocytosis SLIGHT = 6-15 cells HPF (0-5); Monocytes 8 % (0-10); Neutrophil 65 % (42-75); Platelet Adequacy Comment Platelets Normal; RBC Morphology Within Normal Limits
[2023-11-30 10:40] LABS: Anion Gap 15 mmol/L (10-20); BUN (Urea Nitrogen) 11 mg/dL (8.4-25.7); Calc. Creatinine Clearance 68 mL/min (70-130); Calcium 9.3 mg/dL (7.8-10.44); Carbon Dioxide 18 mmol/L (23-31); Chloride 113 mmol/L (98-107); Estimated GFR 101; Glucose 88 mg/dL (80-115); Potassium 4.2 mmol/L (3.5-5.1); Sodium 142 mmol/L (136-145)
[2023-11-30] MEDS: Mirtazapine 15 MG TAB PER TUBE SCH (20:49)
[2023-12-01] MEDS: Sodium Chloride 0.9% 500 ML IVPB SCH (13:33)
[2023-12-02 07:37] VITALS: BP 134/79
[2023-12-02 12:14] VITALS: TEMP 98.1
[2023-12-04] MEDS ORDERED: Apixaban 5 MG TAB PO SCH (09:00)
== END 2023-12-02 18:16 | disposition home or self-care (01) | DRG 175 ==
LOC: ERS 13:43 → 2NO 22:33 → T4-A 11-26 17:48
PROVIDERS: ADMIT Student in an Organized Health Care Education/Training Program; ATTEND Family Medicine
DX: I26.99 Other pulmonary embolism without acute cor pulmonale (principal); E43 Unspecified severe protein-calorie malnutrition; I21.A1 Myocardial infarction type 2; I69.359 Hemiplegia and hemiparesis following cerebral infarction affecting unspecified side; Z68.1 Body mass index [BMI] 19.9 or less, adult; I69.320 Aphasia following cerebral infarction; I10 Essential (primary) hypertension; E78.5 Hyperlipidemia, unspecified; I69.391 Dysphagia following cerebral infarction; R13.10 Dysphagia, unspecified; Z93.1 Gastrostomy status; R00.1 Bradycardia, unspecified; Z79.899 Other long term (current) drug therapy; Z74.01 Bed confinement status
CPT/HCPCS: 36415; 36416; 51701; 70450; 71045; 71275; 80048; 80053; 81001; 83605; 83690; 84484; 85025; 85610; 85730; 87040; 87086; 93306; 94760; 96372; 96374; 96375; J0692; J0696; J1650; J2060; J2405; J3370; J3490; J7030; J7120; Q9967

== ENCOUNTER 2024-04-18 19:57 | Emergency (ER) | payer OTHER ==
[2024-04-18 20:48] LABS: #Basophils 0.04 10x3/uL (0.0-0.2); %Basophils 0.4 % (0.0-1.0); %Eosinophils 1.5 % (0.0-10.0); %Lymphocytes 18.7 % (21.0-51.0); %Monocytes 9.8 % (0.0-10.0); %Neutrophils 69.2 % (42.0-75.0); Hematocrit 36.1 % (42.0-52.0); Mean Corpuscular HGB CONC 33.2 g/dL (32.0-36.0); Mean Corpuscular Hemoglobin 29.4 pg (27.0-31.0); Mean Corpuscular Volume 88.5 fL (78.0-98.0); Mean Platelet Volume 11.1 fL (7.4-10.4); Platelet Count 178 10x3/uL (130-400); RBC Distribution Width 14.5 % (11.5-14.5); Red Blood Cell (RBC) Count 4.08 mill/uL (4.70-6.10)
[2024-04-18 21:05] LABS: ALT (SGPT) 26 U/L (8-55); AST (SGOT) 41 U/L (5-34); Albumin 3.2 g/dL (3.4-4.8); Alkaline Phosphatase 100 U/L (40-110); Anion Gap 15 mmol/L (10-20); BUN (Urea Nitrogen) 19 mg/dL (8.4-25.7); Bilirubin, Total 0.8 mg/dL (0.2-1.2); CRP,High Sensitivity (Inhouse) 1.75 mg/dL (< or = 0.5); Calc. Creatinine Clearance 0 mL/min (70-130); Calcium 8.9 mg/dL (7.8-10.44); Carbon Dioxide 23 mmol/L (23-31); Chloride 106 mmol/L (98-107); Estimated GFR 99; Globulin 4.2 g/dL (2.4-3.5); Glucose 122 mg/dL (80-115); Potassium 4.8 mmol/L (3.5-5.1); Protein, Total 7.4 g/dL (5.8-8.1); Sodium 139 mmol/L (136-145)
== END 2024-04-19 07:16 | disposition home or self-care (01) ==
LOC: ERS 19:57
DX: M70.32 Other bursitis of elbow, left elbow (principal); I10 Essential (primary) hypertension; Z86.73 Personal history of transient ischemic attack (TIA), and cerebral infarction without residual deficits
CPT/HCPCS: 36415; 80053; 83605; 85025; 86141; 87040; 99284

== ENCOUNTER 2025-03-02 07:02 | Emergency (ER) | payer OTHER | END 2025-03-02 10:38 | disposition home or self-care (01) | LOC: ERS 07:02 | DX: K94.23 Gastrostomy malfunction (principal); I10 Essential (primary) hypertension; Z79.899 Other long term (current) drug therapy; Z79.82 Long term (current) use of aspirin; Z55.6 Problems related to health literacy | CPT/HCPCS: 99283 ==